=== PATIENT | male | born 1950 | race Caucasian/White ===

== ENCOUNTER 2018-12-22 10:54 | Observation (INO) | payer OTHER, MEDICARE, SELFPAY ==
[2018-12-22] VITALS (14 sets, daily range): BP systolic 166–191; BP diastolic 78–92; PULSE 67–93; RESP 16–23; TEMP 36.7–36.8; O2SAT 92–98; BMI 32.1; BMI 33.7; BMI 33.8
[2018-12-22 11:06] LABS: Bedside Glucose 260 mg/dL (70-110)
--- NOTE | 2018-12-22 11:23 | RAD_ITS ---
STUDY: X-RAY CHEST REASON FOR EXAM: Male, 68 years old. Intermittent right-sided weakness. TECHNIQUE: Single AP portable view of the chest. COMPARISON: None. FINDINGS: EKG electrodes are seen. Elevation of the right hemidiaphragm. Blunting of the left cardiac phrenic angle. There is moderate cardiac enlargement. Normal mediastinum and elliott. Normal visualized pulmonary arteries. Normal visualized aortic arch and descending thoracic aorta. Normal visualized thoracic spine. Status post left shoulder replacement. There is no demonstrated abnormality of the visualized soft tissue structures of the upper abdomen. RAD/Chest 1 View IMPRESSION: Cardiomegaly. Blunting of the left costophrenic angle. Electronically Signed: Baudilio Maldonado, at 12:30 EDT , Service support ,
--- NOTE | 2018-12-22 11:23 | EKG12_ITS ---
Test Reason : STROKE ALERT Blood Pressure : / mmHG Vent. Rate : 081 BPM Atrial Rate : 081 BPM P-R Int : 142 ms QRS Dur : 084 ms QT Int : 390 ms P-R-T Axes : -01 028 050 degrees QTc Int : 453 ms Normal sinus rhythm Normal ECG Confirmed by MIKE OLIVA, ANICETO ([id number]), material expeditor GIULIANO HERNANDEZ ([id number]) on 12/27/2018 12:56:14 PM Referred By: Jacquie Lujan Confirmed By:ANICETO MCKEON MD
--- NOTE | 2018-12-22 11:23 | CT_ITS ---
STUDY: CT BRAIN WITHOUT CONTRAST REASON FOR EXAM: Male, 68 years old. Weakness. Slurred speech. RADIATION DOSAGE (If Supplied By Facility): CTDIvol = ( 60.81 ) mGy, DLP = ( 1181.11 ) mGycm TECHNIQUE: Transaxial CT imaging of the brain was performed without administration of intravenous contrast material. Individualized dose optimization techniques were used for this CT. COMPARISON: No relevant priors. FINDINGS: Normal soft tissue structures. Normal calvarium. There is mild cerebral atrophy with widening of the extra-axial spaces and ventricular dilatation. There are areas of decreased attenuation within the white matter tracts of the supratentorial brain, consistent with microvascular disease changes. Normal basal ganglia and thalami. Normal brainstem. Normal cerebellum. There is no intracranial hemorrhage. There are no findings of an acute ischemic infarction. Atherosclerotic calcification of the cavernous portions of the internal carotid arteries bilaterally. Opacification of the sphenoid sinuses as well as the ethmoid sinuses. CT/Brain/Head without Contrast IMPRESSION: Chronic involutional changes of the brain. Opacification of the sphenoid sinus and ethmoid sinus. Electronically Signed: Baudilio Maldonado, at 12:28 EDT , Service support ,
--- NOTE | 2018-12-22 11:33 | NURSING ---
NO OLD EKG TO OBTAIN
[2018-12-22 11:43] LABS: Absolute Lymphocyte Count 2.35 X10^3/ul (0.83-4.51); Absolute Neutrophil Count 5.3 X10^3/uL (2.0-7.7); Basophil# 0.03 X10^3/uL; Basophil% 0.3 % (0-1); Eosinophil# 0.41 X10^3/uL; Eosinophils% 4.7 % (0-5); Hemoglobin 16.4 g/dl (13.0-16.5); Lymphocyte # 2.35 X10^3/ul (4.0); Lymphocyte % 27.1 % (19-41); Mean Corp Hgb Conc 32.8 g/gl (32-36); Mean Corpuscular Hgb 29.9 pg (27.0-32.0); Mean Corpuscular Volume 91.2 fL (80-94); Mean Platelet Vol. 12.2 fl (6.2-12.0); Monocyte# 0.58 X10^3/uL; Monocyte% 6.7 % (0-10); Neutrophil # 5.28 X10^3/uL (2.7-7.7); Neutrophil % 61.1 % (47-70); Platelet Count 210 K/mm3 (150-450); RBC Distribution Width CV 12.8 % (11.6-14.6); RBC Distribution Width SD 42.5 fl (35.1-43.9); Red Blood Count 5.48 M/mm3 (4.6-6.2); White Blood Count 8.7 K/mm3 (4.4-11.0)
[2018-12-22 11:44] LABS: POSITIVE COUNT NO; POSITIVE DIFFERENTIAL NO; POSITIVE MORPHOLOGY NO
[2018-12-22 11:46] LABS: Anion Gap 7 (5-15); BUN 14 mg/dL (7-18); BUN/Creat Ratio 13.3 RATIO (10-20); Calcium,Total 9.7 mg/dL (8.5-10.1); Chloride 98 mmol/L (98-107); Creatinine, Serum 1.05 mg/dL (0.70-1.30); EST Glomerular Filtration Rate 75 mL/min (>60); Est Glom Filt Rate - Afr Amer 90 mL/min (>60); Estimated Creatinine Clearance 69.52 ml/min; Glucose 279 mg/dL (74-106); Potassium 3.6 mmol/L (3.5-5.1); Sodium Level 140 mmol/L (136-145)
[2018-12-22 11:47] LABS: Prothrombin Time (Protime)PT. 12.9 SECONDS (11.7-14.9)
[2018-12-22 11:48] LABS: Partial Thromboplast Time 28.7 Seconds (24.1-36.2)
--- NOTE | 2018-12-22 11:52 | ED.VISSUMM ---
- ER Visit Summary Date of Service: 12/22/18 Chief Complaint: Slurred speech, right-sided weakness History of Present Illness: The patient is a 68 M who has slurred speech and right-sided weakness. It started early this morning at 6:30 AM. He felt like he had numbness on the right-hand side and then it became weak. He also thought his speech was slurred. 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 By the time he got here his symptoms had resolved. Earlier this week he has had symptoms of right-sided numbness which have resolved on their own. He has no history of stroke or TIA. He is a diabetic. Denies any falls or trauma. Physical Examination: Vital signs reviewed. HEENT exam unremarkable. Heart is regular rate and rhythm without murmurs. Lungs are clear to auscultation. Abdomen is soft and nontender. Extremities reveal no edema. Skin exam normal. Neurologic exam normal. Current NIH is 0 with no symptoms Test Results: Laboratory studies unremarkable except for bicarb of 35 and a glucose of 229. CAT scan of the head reveals no acute findings except for some slight opacification of sinuses. Chest x-ray reveals cardiomegaly. Emergency Department Course and Treatment: The patient's NIH remains 0 throughout his ER stay. My concern is that he has a TIA. He does have diabetes and his blood pressure is elevated. His ABCD 2 score is high therefore he should be admitted to the hospital for further evaluation. Treatment Plan: [] Disposition: Admit Impression: TIA This note was generated with ClearMy[employer] dictation software. It may contain incorrect words, spelling, and punctuation that were not noted in review of the chart prior to signing ED Disposition - Plan for ED Patient: Referrals: Devin Thompson MD [Primary Care Provider] -
--- NOTE | 2018-12-22 13:26 | HP.PCM_ITS ---
Problem List (1) TIA (transient ischemic attack) Status: Acute (2) Hypertension Status: Chronic Qualifiers: Hypertension type: essential hypertension Qualified Code(s): I10 - Essential (primary) hypertension (3) Diabetes mellitus Status: Chronic Qualifiers: Diabetes mellitus type: type 2 Diabetes mellitus machine long goods helper insulin use: [facility] machine long goods helper use Diabetes mellitus complication status: with neurologic complications History of Present Illness Date of Admission: 12/22/18 Chief Complaint: Slurred speech -1 day. Left upper extremity numbness - intermittent since 5 days The patient is a 68 year old M with past medical history of type II DM, complicated by peripheral neuropathy, hypertension, PAD who comes in with complaints of right upper extremity numbness described as feeling of right upper extremity being which happened 5 days ago and lasted about 20 minutes. Patient subsequently had similar presentation 2 days ago which also lasted for about 20 minutes. He denied any other symptoms. He went to work th morning and was told by his coworkers that he had a slurred speech and this lasted for about an hour and half. He denied any weakness or tingling or numbness of his extremities. His symptoms seem to be resolved at the time of presenting in the ED. Patient admits to recent upper respiratory illness about a week ago with lingering cough. No fevers or chills. Vitals in the ED show temperature of 90 8.0F, heart rate 77, respiratory rate 16, blood pressure 182/87, SPO2 is 97% on room air. Admitting blood work occluding CBC D, CMP INR and PTT were unremarkable except for elevated blood glucose of 260. CT scan of the head showed chronic involuntary changes of the brain, opacification of the sphenoid sinus and ethmoid sinus. Chest x-ray shows cardiomegaly, blunting of the left costophrenic angle. Past Medical History Past Medical History (Chronic Problems): Chronic Problems Hypertension (Chronic) Diabetes mellitus (Chronic) Allergies codeine Allergy (Verified 12/22/18 10:55) Hives morphine Allergy (Verified 12/22/18 10:55) Hives Home Medications: Ambulatory Orders Medication Instructions Recorded Albuterol IH (ProAir) [Proair Hfa 1 puff INHALATION Q4H PRN PRN 12/22/18 (SP)Vent Pts] Cilostazol [Pletal] 50 mg PO BIDAC 12/22/18 Gabapentin [Neurontin] 300 mg PO TID 12/22/18 Glimepiride [Amaryl] 4 mg PO DAILY 12/22/18 Lisinopril 1 tab PO DAILY 12/22/18 Lisinopril [Zestril] 20 mg PO DAILY 12/22/18 Metformin HCl 500 mg PO BID 12/22/18 Metoprolol Succinate [Toprol Xl] 50 mg PO DAILY 12/22/18 Omeprazole 1 tab PO DAILY 12/22/18 Surgical History: rotator cuff repair - left shoulder, total hip arthroplasty - right, total knee arthroplasty - left Psychiatric History: No pertinent psych hx Lives: Spouse/ Significant Other Smoking Status: Never smoker Tobacco Use: Non-smoker Alcohol: None Drugs: None - *Family History Maternal History Items: No pertinent history Paternal History Items: Cancer - lung Review of Systems Constitutional: Denies: Anorexia, Chills, Fever, Malaise, Weakness, Weight Change Eyes: Denies: Blurred vision, Cataracts, Conjunctivae Inflammation, Pain, Redness, Vision Change HEENT: Denies: Difficulty Hearing, Difficulty Swallowing, Head Aches, Hearing Changes, Sinus Congestion, Sinus Drainage Cardiovascular: Denies: Chest Pain, Claudication, Orthopnea, Palpitations, Paroxysmal Noc. Dyspnea Respiratory: Reports: Cough. Denies: Shortness of Breath, Shortness of breath at rest, Sputum production Gastrointestinal: Denies: Abdominal Pain, Constipation, Nausea, Vomiting Genitourinary: Denies: Dysuria, Frequency, Incontinence Musculoskeletal: Denies: Joint Pain, Joint stiffness, Joint swelling, Joint Tenderness Skin: Denies: Rash, Wounds Neurological: Denies: Numbness, Tingling, Focal weakness Psychiatric: Denies: Anxiety, Depression, Homicidal Ideations, Suicidal Ideations Hematologic/ Lymphatic: Denies: Easy Bruising, Easy Bleeding VTE Information - Inpt Only VTE Present on Admission: No VTE Pharm Prophylaxis ordered?: Yes Patient Problems: Active and Suspected Problems TIA (transient ischemic attack) (Acute) - Physical Exam General: Alert, Oriented x3, Cooperative, No apparent distress HEENT: Atraumatic, PERRLA, EOMI, Normocephalic Oral: Moist Mucosa Neck: Supple Lungs: Clear to auscultation, Normal air movement Cardiovascular: Regular rate, Regular Rhythm, Normal S1, Normal S2, No murmurs Abdomen: Bowel Sounds Present, Soft, Non Tender, Non-Distended, No Hepato- splenomegaly Extremities: No edema Skin: No rashes, No breakdown Musculoskeletal: No Tenderness to Palpation of Joints or Extremities Neurological: Cranial nerves II-XII grossly intact, Neuro grossly intact Psych/Mental Status: Normal Affect, Appropriate Vital Signs Temp Pulse Resp BP Pulse Ox 98.2 F 73 20 H 184/83 H 98 12/22/18 13:00 12/22/18 13:00 12/22/18 13:00 12/22/18 13:00 12/22/18 13:00 Oxygen Delivery Method Room Air Weight: 101.39 kg Body Mass Index (BMI) 32.1 Finger Stick Blood Glucose 260 Laboratory Tests Past 24 Hrs 12/22/18 12/22/18 12/22/18 10:57 10:57 10:57 WBC 8.7 RBC 5.48 Hgb 16.4 Hct 50.0 MCV 91.2 MCH 29.9 MCHC 32.8 RDW 12.8 RDW Differential 42.5 Plt Count 210 MPV 12.2 H Immature Gran % (Auto) 0.100 Neut % (Auto) 61.1 Lymph % (Auto) 27.1 [place] % (Auto) 6.7 Eos % (Auto) 4.7 Baso % (Auto) 0.3 Absolute Neuts (auto) 5.3 Absolute Lymphs (auto) 2.35 Total Counted Not Reportable PT 12.9 INR 1.0 APTT 28.7 Sodium 140 Potassium 3.6 Chloride 98 Carbon Dioxide 35.0 H Anion Gap 7 BUN 14 Creatinine 1.05 Estim Creat Clear Calc 69.52 Est GFR (MDRD) Af Amer 90 Est GFR (MDRD) Non-Af 75 BUN/Creatinine Ratio 13.3 Glucose 279 H Calcium 9.7 Troponin I < 0.015 POC Glucose 12/22/18 11:00 POC Glucose 260 H Assessment/Plan All Active Problems TIA (transient ischemic attack) (Acute) 68 year old M with past medical history of type II DM, complicated by peripheral neuropathy, hypertension, PAD who comes in with complaints of right upper extremity numbness described as feeling of right upper extremity being which happened 5 days ago and lasted about 20 minutes. This recurred 2 days prior to admission and then had slurred speech which lasted about 90mins prior to admission. 1. TIA, in a patient with multiple risk factors, ABCD2 score is 6 Plan: Admit to PCU, monitor on telemetry, aspirin 81 mg p.o. daily, 2D echo, MRI of the head, MRA of the head and neck, HgbA1c, lipid profile, neurology consult, PT, OT, speech therapy to evaluate and treat 2. Hypertension, uncontrolled, will allow for permissive hypertension for the next 24 hours, will treat only when systolic blood pressures more than 220, as work-up is ongoing, on lisinopril and metoprolol, continue same medications 3. Type 2 DM, on glimepiride and metformin, both are on hold, will continue on Accu-Chek with insulin sliding scale, check Hgb A1c 4. PAD, on cilostazol( patient admits to not taking his medication since June when his vascular surgeon moved practice to [place]) 5. DVT PPx- Heparin SC Code Visit OBSV E&M: [id number] Initial observation care L3
--- NOTE | 2018-12-22 13:49 | CASEMGMT ---
RN CM Assessment Introduced role of RN CM to patient and patient at bedside.? Patient is alert, oriented and able?to participate in RN CM Assessment, however patient getting ready to go to room by ER Rug Sizer- provided information. ?Care providers, pharmacy, and demographics verified. Presentation: Intermittent Rt side Weakness over the past couple days. This morning slurred speech- resolved. Admit Dx: TIA Re-Admit: No Barriers/Issues: None PCP: Devin Thompson Specialists: Ortho in past Preferred Pharmacy: [facility], [place] Insurance: [employer] Benefit: Yes? LNOK: Jazmin Leon LW/HPOA: Yes both, aware not on file at [facility]. HPOA- Jazmin Leon Living Arrangements:?Lives with with in a Ranch Home, 12 steps to enter. ADL?s: Independent with ambulation and uses a cane Prn longer distances. Independent with ADL's Transportation: Patient drives, to transport on DC DME: CPAP, Cane HHC: Past SNF: None Goal: Home, does not think will have any needs at DC. DC PLAN: Home with no anticipated needs identified at this time. Miguelito Pollard RNCM
--- NOTE | 2018-12-22 14:37 | MRI_ITS ---
STUDY: MRA NECK WITH AND WITHOUT CONTRAST REASON FOR EXAM: Male, 68 years old. Stroke TECHNIQUE: 3-D sgqc-to-doomwa (TOF) imaging was performed in an 1.5 T MRI scanner. 20 IV Dotarem was administered for the contrast enhanced images. COMPARISON: None. FINDINGS: RIGHT CAROTID ARTERIES: Mild plaquing of the right common carotid artery (CCA). Mild plaquing of the right common carotid bulb. Minor plaquing of the origin of the right internal carotid (ICA) artery without a hemodynamically significant stenosis. Normal visualized cervical portion of the right internal carotid artery. Normal origin of the right external carotid artery (ECA). LEFT CAROTID ARTERIES: Mild plaquing of the left common carotid artery (CCA). Mild plaquing of the left common carotid bulb. Mild to moderate plaquing of the origin of the left internal carotid (ICA) artery without a hemodynamically significant stenosis. There is a high-grade stenosis nearly occlusive lesion within the cervical portion of the left internal carotid artery. Normal origin of the left external carotid artery (ECA). VERTEBRAL ARTERIES: Normal antegrade flow within the bilateral vertebral artery without a hemodynamically significant stenosis. There is narrowing of the distal right vertebral MRI/MRA Neck WITH and W/O Contrast IMPRESSION: Atherosclerotic disease more severe on the left with high-grade stenosis near occlusion of the cervical portion of the left internal carotid CTA or catheter angiography would be helpful for further evaluation if clinically warranted Electronically Signed: Gal Daniel MD at 19:46 EDT , Service support ,
--- NOTE | 2018-12-22 14:37 | MRI_ITS ---
We are attempting to reach an attending provider to discuss findings. An addendum with communication details will be sent when the communication is complete. STUDY: MRI BRAIN WITHOUT CONTRAST REASON FOR EXAM: Male, 68 years old. Slurred speech TECHNIQUE: Standardized multiplanar fat and water weighted pulse sequences were obtained. COMPARISON: CT of the brain on December 22, 2018 FINDINGS: There is mild atrophy and moderate periventricular white matter ischemic changes. There are tiny punctate foci of restricted diffusion in the left frontal and parietal lobes consistent with acute ischemic changes in the distribution of the left middle cerebral artery.. Chronic ischemic changes within the [place]. Normal bilateral basal ganglia. Normal thalami. There is no extra-axial fluid accumulation. Normal flow voids within the major intracranial circulation suggesting patency by spin echo criteria. Normal sella turcica, pituitary gland, infundibular stalk, optic chiasm and hypothalamus. Normal tectal plate and pineal gland. Normal midbrain and medulla. Normal cerebellum. Normal basal cisterns. Normal bilateral temporal bones. Normal bilateral internal auditory canals. No demonstrated orbital abnormality, within the constraints of a routine brain study. There is minor mucosal thickening of the maxillary sinuses. There is moderate to severe bilateral ethmoid and sphenoid sinus disease. Normal calvarium and skull base. Normal visualized soft tissue structures. Normal visualized upper cervical spine. MRI/Brain without Contrast IMPRESSION: Tiny foci of acute deep white matter ischemic changes within the left frontal and parietal lobes Moderate periventricular white matter ischemic changes. Chronic pontine ischemic changes.. Electronically Signed: Gal Daniel MD at 19:34 EDT , Service support ,
--- NOTE | 2018-12-22 14:37 | ECHOD_ITS ---
Reason For Study: TIA/CVA Procedure This was a 2D Doppler, Color Flow transthoracic echocardiogram. The study was technically difficult. Due to body habitus. Contrast injection was performed. Exam performed portable in patient room. Left Ventricle Normal size and thickness. The estimated ejection fraction is 75 %. Stage 1 diastolic dysfunction. No regional wall motion abnormalities noted. Right Ventricle Normal size and thickness. Normal systolic function. Atria Normal left atrium. Normal right atrium. Normal atrial septum. Bubble contrast study negative for right to left interatrial shunt. Mitral Valve The mitral valve is structurally normal. No prolapse or stenosis seen. Tricuspid Valve Normal tricuspid valve. Trivial tricuspid valve insufficiency. Right ventricular systolic pressure estimated to be 21 mmHg. Aortic Valve Normal aortic valve. Trisinus/trileaflet aortic valve. Pulmonic Valve Normal pulmonic valve. Great Vessels Normal aortic root. Normal arch. Normal inferior vena cava. Inferior vena cava collapse with sniff. Pericardium/Pleural No pericardial effusion. Medication Performed a rapid injection of agitated mix of 9 cc saline and 1cc air to assess for atrial septal defect. Diluted definity 3.5ml given slow IV push to enhance endocardial definition. MMode/2D Measurements & Calculations LVIDd: 4.8 cm IVSd: 1.2 cm Ao root diam: 3.7 cm LVIDs: 3.0 cm LVPWd: 1.2 cm RVDd: 3.6 cm FS: 38.2 % LAV(MOD-bp): 55.6 ml LA dimension(2D): 3.7 cm LAV(MOD-bp) Indexed: 24.9 ml/m2 LAV(MOD-sp2): 55.4 ml LAV(MOD-sp4): 55.2 ml Time Measurements MV dec time: 0.27 sec Doppler Measurements & Calculations MV E max itz: 72.5 cm/sec Lat Peak E' Itz: 8.8 cm/sec Med Peak E' Itz: 5.9 cm/sec MV A max itz: 95.0 cm/sec E/E' lat: 8.2 E/E' med: 12.2 MV E/A: 0.76 Ao V2 max: 126.2 cm/sec LV V1 max: 98.5 cm/sec PA V2 max: 80.1 cm/sec Ao max P.4 mmHg LV V1 max P.9 mmHg Interpretation Summary The estimated ejection fraction is 75 %. Stage 1 diastolic dysfunction. Bubble contrast study negative for right to left interatrial shunt. Trivial tricuspid valve insufficiency. Right ventricular systolic pressure estimated to be 21 mmHg. The study was technically difficult. There is no comparison study available. Contrast injection was performed. Ordering Physician: Jacquie Lujan Referring Physician: Devin Thompson Performed By: Marina Walker RDCS, RVT
--- NOTE | 2018-12-22 14:37 | MRI_ITS ---
STUDY: MRA OF THE HEAD WITHOUT CONTRAST REASON FOR EXAM: Male, 68 years old. CVA TECHNIQUE: 3-D ouoc-xo-ojcued (TOF) imaging was performed with MIPs. The study was performed unenhanced. COMPARISON: None. FINDINGS: Normal bilateral petrous carotid arteries. Normal right cavernous carotid artery with a normal supraclinoid bifurcation. Normal left cavernous carotid artery with a normal supraclinoid bifurcation. Normal right A1 segments of the anterior cerebral artery. Prominent narrowing of the left A1 segments of the anterior cerebral artery. Anterior communicating artery not visualized consistent with normal variant Normal bilateral A2 segments of the anterior cerebral arteries. Multifocal plaquing of the right M1 and M2 segments of the middle cerebral arteries, with a normal M1 bifurcation. Multi focal plaquing of the left M1 and M2 segments of the middle cerebral arteries, with a normal M1 bifurcation. Posterior communicating arteries are not visualized consistent with normal variant Left vertebral is dominant and normal caliber. There is relatively severe narrowing of the distal right vertebral and without focal narrowing of the basilar artery. The visualized bilateral superior cerebellar (SCA) arteries are normal. Normal bilateral P1, P2 and visualized P3 segments of the posterior cerebral arteries. There is no demonstrated aneurysm of the [place] of [place]. There is no major vessel occlusion or hemodynamically significant stenosis. There is no demonstrated abnormality of the visualized brain. MRI/MRA Head ONLY without Contrast IMPRESSION: Moderate atherosclerotic disease is noted with multifocal segmental stenoses which appear most severe within the A1 segment of left anterior cerebral, right vertebral and basilar arteries. These findings may be artifactually exaggerated. CTA would be helpful for further assessment if clinically indicated Electronically Signed: Gal Daniel MD at 19:42 EDT , Service support ,
[2018-12-22 15:03] LABS: Hemoglobin A1c 8.8 % (4.2-6.3)
[2018-12-22] MEDS: Heparin Injection (Vial) 5,000 UNIT/ML VIAL 5000 UNIT SC ×2 (16:59→21:30)
[2018-12-22] MEDS: Gabapentin 300 MG Capsule PO (16:59)
[2018-12-22 17:11] LABS: Bedside Glucose 187 mg/dL (70-110)
[2018-12-22 17:12] LABS: Alcohol, Blood (Medical)-Serum < 3.0 mg/dL
[2018-12-22] MEDS: LORazepam 2 MG/ML Syringe 1 MG IV (17:32)
--- NOTE | 2018-12-22 20:39 | DCINST_ITS ---
- Discharge Diagnoses Current Active Problems: Current Active and Chronic Problems TIA (transient ischemic attack) (Acute) Hypertension (Chronic) Diabetes mellitus (Chronic) Reason(s) for Visit for Discharge Instructions: slurred speech Allergies/Adverse Reactions: Allergies codeine Allergy (Verified 12/22/18 10:55) Hives morphine Allergy (Verified 12/22/18 10:55) Hives Medications to take at Discharge Albuterol IH (ProAir) [Proair Hfa (SP)Vent Pts] 1 puff INHALATION Q4H PRN PRN 12/22/18 Aspirin [Aspirin, Baby] 81 mg PO DAILY@0800 12/22/18 Gabapentin [Neurontin] 300 mg PO BID 12/22/18 Glimepiride [Amaryl] 4 mg PO BID 12/22/18 Lisinopril [Zestril] 20 mg PO DAILY 12/22/18 Metoprolol Succinate [Toprol Xl] 50 mg PO DAILY 12/22/18 Omeprazole 40 mg PO DAILY 12/22/18 Primary Care Physician: Devin Thompson MD [Primary Care Provider] - Test Results: Test results from this visit will be discussed in further detail at your follow- up appointment, if applicable. Proposed Discharge Date: 12/22/18
--- NOTE | 2018-12-22 20:39 | DS.PCM_ITS ---
Discharge Date and Diagnosis Date of Admission: 12/22/18 Date of Discharge: 12/22/18 - Primary Discharge Diagnosis Active and Suspected Problems Acute frontal and parietal CVA Multifocal segmental stenosis, severe in the left anterior cerebral, right vertebral and basilar arteries Severe left high-grade stenosis/near occlusion of the left internal carotid - Secondary Discharge Diagnosis Chronic Problems Hypertension (Chronic) Diabetes mellitus (Chronic) Hospital Course and Treatment Imaging Results: 12/22/18 14:37 Echo Complete W/ Contrast [ECHO] Routine Brain without Contrast [MRI] Routine MRA Head ONLY without Contrast [MRI] Routine MRA Neck WITH and W/O Contrast [MRI] Routine Operations: None Procedures: 2-D Echocardiogram Summary of Care Provided: The patient is a 68 year old M with past medical history of type II DM, complicated by peripheral neuropathy, hypertension, PAD who comes in with complaints of right upper extremity numbness described as feeling of right upper extremity being which happened 5 days ago and lasted about 20 minutes. Patient subsequently had similar presentation 2 days ago which also lasted for about 20 minutes. He denied any other symptoms. He went to work on the morning of the admission and was told by his coworkers that he had a slurred speech and this lasted for about an hour and half. He denied any weakness or tingling or numbness of his extremities. His symptoms seem to be resolved at the time of presenting in the ED. Patient admits to recent upper respiratory illness about a week ago with lingering cough. No fevers or chills. Vitals in the ED show temperature of 98.0F, heart rate 77, respiratory rate 16, blood pressure 182/87, SPO2 is 97% on room air. Admitting blood work occluding CBC D, CMP INR and PTT were unremarkable except for elevated blood glucose of 260. CT scan of the head showed chronic involuntary changes of the brain, opacification of the sphenoid sinus and ethmoid sinus. Chest x-ray shows cardiomegaly, blunting of the left costophrenic angle. MRI brain showed tiny foci of acute deep white matter ischemic changes within the left frontal and parietal lobes. MRA of head showed atherosclerotic disease with multifocal segmental stenosis seen most CVA within left anterior cerebral, right vertebral and basilar arteries. MRA of the neck showed atherosclerotic disease most severe on the left with high-grade stenosis/near occlusion of the cervical portion of the left internal carotid artery. Night hospitalist discussed with neurology and recommended transfer to tertiary center. Patient was accepted to [facility]. Subjective: See H&P Objective: See H&P - Physical Exam Vital Signs Temp Pulse Resp BP Pulse Ox 98.0 F 93 16 191/86 H 94 12/22/18 17:37 12/22/18 19:46 12/22/18 17:37 12/22/18 17:37 12/22/18 17:37 Oxygen Flow Rate (L/min) 2 Oxygen Delivery Method Room Air Weight: 106.7 kg Body Mass Index (BMI) 33.7 Finger Stick Blood Glucose 260 Intake and Output for Last 24 Hours 12/20/18 12/21/18 12/22/18 23:59 23:59 23:59 Intake Total 240 / 240 Balance 240 / 240 Laboratory Tests Past 24 Hrs 12/22/18 12/22/18 12/22/18 10:57 10:57 10:57 WBC 8.7 RBC 5.48 Hgb 16.4 Hct 50.0 MCV 91.2 MCH 29.9 MCHC 32.8 RDW 12.8 RDW Differential 42.5 Plt Count 210 MPV 12.2 H Immature Gran % (Auto) 0.100 Neut % (Auto) 61.1 Lymph % (Auto) 27.1 Moffat % (Auto) 6.7 Eos % (Auto) 4.7 Baso % (Auto) 0.3 Absolute Neuts (auto) 5.3 Absolute Lymphs (auto) 2.35 Total Counted Not Reportable PT 12.9 INR 1.0 APTT 28.7 Sodium 140 Potassium 3.6 Chloride 98 Carbon Dioxide 35.0 H Anion Gap 7 BUN 14 Creatinine 1.05 Estim Creat Clear Calc 69.52 Est GFR (MDRD) Af Amer 90 Est GFR (MDRD) Non-Af 75 BUN/Creatinine Ratio 13.3 Glucose 279 H Hemoglobin A1c Calcium 9.7 Troponin I < 0.015 Ethyl Alcohol 12/22/18 12/22/18 10:57 16:17 WBC RBC Hgb Hct MCV MCH MCHC RDW RDW Differential Plt Count MPV Immature Gran % (Auto) Neut % (Auto) Lymph % (Auto) Moffat % (Auto) Eos % (Auto) Baso % (Auto) Absolute Neuts (auto) Absolute Lymphs (auto) Total Counted PT INR APTT Sodium Potassium Chloride Carbon Dioxide Anion Gap BUN Creatinine Estim Creat Clear Calc Est GFR (MDRD) Af Amer Est GFR (MDRD) Non-Af BUN/Creatinine Ratio Glucose Hemoglobin A1c 8.8 H Calcium Troponin I Ethyl Alcohol < 3.0 POC Glucose 12/22/18 12/22/18 17:08 11:00 POC Glucose 187 H 260 H Discharge Diet: Low fat/ Low Cholesterol, 2000 mg Sodium Diet Home Medications: Medications to take at Discharge Albuterol IH (ProAir) [Proair Hfa (SP)Vent Pts] 1 puff INHALATION Q4H PRN PRN 12/22/18 Aspirin [Aspirin, Baby] 81 mg PO DAILY@0800 12/22/18 Gabapentin [Neurontin] 300 mg PO BID 12/22/18 Glimepiride [Amaryl] 4 mg PO BID 12/22/18 Lisinopril [Zestril] 20 mg PO DAILY 12/22/18 Metoprolol Succinate [Toprol Xl] 50 mg PO DAILY 12/22/18 Omeprazole 40 mg PO DAILY 12/22/18 Primary Care Physician: Devin Thompson MD [Primary Care Provider] - Disposition: Acute care Hospital Minutes spent on discharge:: 50 Patient Condition:: Stable Medical Necessity - Tobacco Use Smoking Status: Never smoker Tobacco Use: Non-smoker Meaningful Use Info Meaningful Use Diagnoses (Choose all that apply): Ischemic CVA - CVA Therapy Assessed for PT,OT and/or ST?: Yes - Ischemic Stroke Antithrombotic order at d/c?: No Reason antithrombotic not ordered: Treatment not Indicated Dx of Atrial fib/flutter?: No Anticoagulant at discharge?: No Reason anticoagulant not ordered: Treatment not Indicated Statins at discharge?: Yes Primary Dx Acute Ischemic CVA?: Yes IV tPA ordered during stay?: No Reason IV t-PA not ordered: Treatment not Indicated Code Visit Inpatient E&M: 10590 Disch Hosp
--- NOTE | 2018-12-22 21:26 | NURSING ---
Discussed with features reporter Jorge Rivas RN, she checked [employer] website for tranfer. Per [employer] website in network facilities include [facility], [facility], [facility], [facility].
[2018-12-22] MEDS: Insulin Lispro 100 UNIT/ML INSULN.PEN SQ (21:30)
[2018-12-22] MEDS: 0.9% NaCl Peripheral Flush Adult/Peds IV (21:30)
--- NOTE | 2018-12-22 22:30 | NURSING ---
Report called to Cassi TORRES at [facility].
[2018-12-22 22:45] LABS: Bedside Glucose 252 mg/dL (70-110)
--- NOTE | 2018-12-22 23:13 | NURSING ---
Transport arrived to pickup patient and take to [facility]. Verbal report given; patient belongings and home medications sent with patient.
== END 2018-12-22 23:15 | disposition short-term general hospital (02) ==
LOC: ED 13:27 → PCU 17:42
PROVIDERS: Admitting Provider Internal Medicine; Emergency Provider Emergency Medicine; Referring Provider Internal Medicine; Visit Provider Internal Medicine
DX: I63.522 Cerebral infarction due to unspecified occlusion or stenosis of left anterior cerebral artery (principal); R47.81 Slurred speech; R20.0 Anesthesia of skin; I10 Essential (primary) hypertension; Z79.4 Long term (current) use of insulin; Z79.899 Other long term (current) drug therapy; Z79.82 Long term (current) use of aspirin; E11.42 Type 2 diabetes mellitus with diabetic polyneuropathy; E11.51 Type 2 diabetes mellitus with diabetic peripheral angiopathy without gangrene
CPT/HCPCS: 36415; 70450; 70544; 70549; 70551; 71045; 80048; 80320; 82962; 83036; 84484; 85025; 85610; 85730; 92522; 92610; 93005; 93306; 96372; 96374; 99285; A9575; Q9957; A4216; C8929; G0480

== ENCOUNTER 2018-12-29 19:40 | Inpatient (IN) | payer OTHER, MEDICARE, SELFPAY ==
[2018-12-22 20:19] VITALS: BMI 33.7
[2018-12-29 21:00] VITALS: BP 172/98; PULSE 84; RESP 18; TEMP 36.8; O2SAT 96; BMI 33.5
--- NOTE | 2018-12-29 21:03 | CON.PCM_ITS ---
Problem List (1) CVA (cerebral vascular accident) Status: Acute Qualifiers: CVA mechanism: unspecified Qualified Code(s): I63.9 - Cerebral infarction, unspecified (2) HLD (hyperlipidemia) Status: Chronic Qualifiers: Hyperlipidemia type: unspecified Qualified Code(s): E78.5 - Hyperlipidemia, unspecified (3) GERD (gastroesophageal reflux disease) Status: Chronic Qualifiers: Esophagitis presence: esophagitis presence not specified Qualified Code(s): K21.9 - Gastro-esophageal reflux disease without esophagitis (4) Neuropathy Status: Chronic (5) Obesity (BMI 30.0-34.9) Status: Chronic (6) Hypertension Status: Chronic Qualifiers: Hypertension type: essential hypertension Qualified Code(s): I10 - Essential (primary) hypertension (7) Diabetes mellitus Status: Chronic Qualifiers: Diabetes mellitus type: type 2 Diabetes mellitus longterm insulin use: without cake wrapper use Diabetes mellitus complication status: with neurologic complications Reason for Consult Date of Consultation: 12/29/18 Reason for Consultation: Medical consultation History of Present Illness: The patient is a 68 y/o M w/ PMHx: PAD, Obesity, EtOH Abuse history, HTN, HLD, GERD, Neuropathy, Diabetes mellitus type II who presents to the [facility] on 12/29/18 for ongoing PT, OT, CVA evaluations and treatment, transferred from following acute CVA w/ R sided hemiplegia as well as oropharyngeal dysphagia. Patient was recently admitted to [facility] on 12/22/18 for TIA/CVA evaluation and during that admission had evaluation notable for acute Frontal and Parietal CVA w/ severe in the left anterior cerebral, right vertebral and basilar arteries and severe left high-grade stenosis/near occlusion of the left internal carotid. During his hospitalization patient underwent left CEA however his recovery was complicated by hypercapnic respiratory acidosis requiring BiPAP for several days with pulmonary consultation who felt that his underlying obesity with hypoventilation syndrome as well as JULIUS responsible for his current presentation as well as possible obstructive lung disease. Patient with ongoing right-sided hemiplegia as well as oropharyngeal dysphagia with transition to Rehab for ongoing PT, OT, Speech and Rehab physician evaluations and treatment. Past Medical History Past Medical History (Chronic Problems): Chronic Problems Hypertension (Chronic) Diabetes mellitus (Chronic) HLD (hyperlipidemia) (Chronic) GERD (gastroesophageal reflux disease) (Chronic) Neuropathy (Chronic) Obesity (BMI 30.0-34.9) (Chronic) Allergies codeine Allergy (Verified 12/22/18 10:55) Hives morphine Allergy (Verified 12/22/18 10:55) Hives Home Medications: Ambulatory Orders Medication Instructions Recorded Aspirin [Aspirin, Baby] 81 mg PO DAILY@0800 12/22/18 Gabapentin [Neurontin] 300 mg PO TID 12/22/18 Glimepiride [Amaryl] 4 mg PO DAILY 12/22/18 Lisinopril [Zestril] 40 mg PO DAILY 12/22/18 Omeprazole 40 mg PO DAILY 12/22/18 Albuterol Inhaler [Ventolin Hfa 1 puff INHALATION Q6H PRN PRN 12/29/18 (SP)] Atorvastatin Calcium 80 mg PO QHS 12/29/18 Hydrochlorothiazide [Hctz] 25 mg PO DAILY 12/29/18 Metoprolol Tartrate 25 mg PO Q12H 12/29/18 Surgical History: rotator cuff repair - left shoulder, total hip arthroplasty - right, total knee arthroplasty - left Psychiatric History: No pertinent psych hx Lives: Spouse/ Significant Other Smoking Status: Never smoker Tobacco Use: Non-smoker Alcohol: Occasional Drugs: None - *Family History Maternal History Items: - - No marked maternal family history of heart disease, diabetes or cancer. Paternal History Items: Cancer - lung Review of Systems Constitutional: Reports: Fatigue. Denies: Chills, Fever, Weight Change HEENT: Reports: Difficulty Swallowing, Head Aches. Denies: Sinus Congestion, Sinus Drainage Cardiovascular: Denies: Chest Pain, Palpitations Respiratory: Denies: Cough, Shortness of breath at rest, Sputum production Gastrointestinal: Denies: Abdominal Pain, Nausea, Vomiting Genitourinary: Denies: Dysuria Musculoskeletal: Reports: Back Pain. Denies: Joint Pain, Joint Tenderness Skin: Denies: Rash, Wounds Neurological: Reports: Balance problems, Slurred speech, Focal weakness. Denies: Numbness, Tingling Psychiatric: Denies: Anxiety, Depression, Homicidal Ideations, Suicidal Ideations Hematologic/ Lymphatic: Reports: Easy Bruising, Easy Bleeding Patient Problems: Active and Suspected Problems CVA (cerebral vascular accident) (Acute) Subjective: Seated upright in the rehab bed, notes ongoing mild headache rated 4-5 out of 10 currently. Objective: Physical Examination: General: awake, alert, oriented x 3 and cooperative, seated upright in bed in no apparent distress, notes headache present. Skin: normal color, turgor, no icterus, cyanosis. HEENT: AT/NC, EOMI, PERRLA, MMM, no carotid bruits or JVD noted. Lungs: CTA bilaterally, moderate effort, mild decrease BL bases, no rales, ronchi or wheezing. Heart: Regular rate and rhythm; no gallop, rub audible. Abdomen: soft, obese, NTTP, ND, normal BS, no HSM. Extremities: no cyanosis, clubbing, or edema. Neurological: patient awake, alert, oriented x 3; cognitive function intact; pu pils equally reactive to light and accomodation; cranial nerves II-XII grossly normal, moving all 4 extremities however limitations to right-sided movement with right-sided hemiplegia, strength 4-5, mild dysarthria. Psychiatric: affect appears normal, no acute evidence of depressive or anxiety feelings. - Physical Exam Vital Signs Temp Pulse Resp BP Pulse Ox 98.3 F 84 18 172/98 H 96 12/29/18 21:00 12/29/18 21:00 12/29/18 21:00 12/29/18 21:00 12/29/18 21:00 Oxygen Delivery Method Room Air Weight: 233 lb 11.04 oz Body Mass Index (BMI) 33.5 Finger Stick Blood Glucose 260 Intake and Output for Last 24 Hours 12/27/18 12/28/18 12/29/18 23:59 23:59 23:59 Output Total 275 / 275 Balance -275 / -275 Assessment/Plan All Active Problems TIA (transient ischemic attack) (Acute) CVA (cerebral vascular accident) (Acute) The patient is a 68 y/o M w/ PMHx: Obesity, EtOH Abuse history, HTN, HLD, GERD, Neuropathy, Diabetes mellitus type II who presents to the [facility] on 12/29/18 for ongoing PT, OT, CVA evaluations and treatment, transferred from following acute CVA w/ R sided hemiplegia as well as oropharyngeal dysphagia. (1) Recent Acute CVA Frontal and Parietal CVA: Recent inpatient evaluation at [facility], transferred to OSH following MRI evaluations notable for acute frontal and parietal CVA w/ severe in the left anterior cerebral, right vertebral and basilar arteries and severe left high-grade stenosis/near occlusion of the left internal carotid. During his hospitalization patient underwent left CEA. Patient with ongoing right-sided hemiplegia as well as oropharyngeal dysphagia, continue PT, OT as well as speech therapy evaluations, maintain on aspirin, high-dose statin, BP regimen as well as diabetic regimen, continue nectar thick, mechanical soft diet pending further speech interventions. Patient with complaint of generalized headache, aching, had similar yesterday, not consistent with migraine noted per patient with remote history, improved prior with tylenol. BP SBP 160s, pending administration metoprolol, may need to add to regimen to achieve goal <140/90 as may be contributing to headache presentation. Discussed with Neurologist/Rehab physician. (2) Recent Acute hypercapnic respiratory acidosis secondary to JULIUS, Hypoventilation Syndrome: Recent evaluation for acute CVA w/ L CEA performed and following recovery was complicated by hypercapnic respiratory acidosis requiring BiPAP for several days with pulmonary consultation who felt that his underlying obesity with hypoventilation syndrome as well as JULIUS responsible for his current presentation as well as possible obstructive lung disease. Continue home CPAP q HS. (3) Diabetes mellitus type II with neuropathy: Continue oral home regimen, ADA diet, accu checks w/ ISS, maintained on gabapentin. (4) Hypertension: Continue home regimen including hydrochlorthiazide, lisinopril, metoprolol, PRN hydralazine. (5) Hyperlipidemia: Continue home statin regimen. (6) PAD: Patient previously on silo to Zoll which she had not taken since June but was previously on this regimen and had been following with vascular surgery but stopped since his surgeon moved to [place]. As noted maintained on ASA, high dose statin, BP regimen. (7) GERD: PPI. (8) DVT prophylaxis: Per rehabilitation physician discretion, heparin ordered Code Visit Inpatient E&M: 15389 [facility] Hosp L3
[2018-12-29 22:00] VITALS: BP 169/79; PULSE 84; RESP 16; TEMP 36.4; O2SAT 95
--- NOTE | 2018-12-29 22:45 | NURSING ---
PT STATES HE HAS A THROBBING JACOME TO BACK OF HEAD THAT BEGAN ABOUT 1.5 HOURS AGO. STATES NO OTHER CHANGES. VITAL SIGNS TAKEN. DENIES VISION CHANGES.PERRL. R SIDED WEAKNESS NOTED. PAGE PLACE TO DR PAGAN.
--- NOTE | 2018-12-29 22:55 | NURSING ---
DR PAGAN INFORMED OF PT'S THROBBING #10 OCCIPITAL JACOME. AND VITAL SIGNS. ORDERS GIVEN. DR STEWART INTO ROOM TO TALK TO PT AND ALSO SPEAKS TO DR PAGAN ON PHONE TO DISCUSS PT'S HEADACHE AND BP.
[2018-12-29] MEDS: Senna/Docusate Sodium 1 Tablet 2 TABLET PO (23:05)
[2018-12-29 23:06] VITALS: BP 169/79; PULSE 84
[2018-12-29] MEDS: Atorvastatin Calcium 80 MG Tablet PO (23:06)
[2018-12-29] MEDS: Metoprolol Tartrate 25 MG Tablet PO (23:06)
[2018-12-29] MEDS: Gabapentin 300 MG Capsule PO (23:06)
[2018-12-29] MEDS: Heparin Injection (Vial) 5,000 UNIT/ML VIAL 5000 UNIT SC (23:06)
[2018-12-29] MEDS: Acetaminophen 500 MG Tablet 1000 MG PO (23:22)
[2018-12-29 23:46] LABS: Bedside Glucose 148 mg/dL (70-110)
[2018-12-30 00:21] VITALS: BP 164/84; PULSE 87
--- NOTE | 2018-12-30 00:27 | NURSING ---
DR STEWART NOTIFIED THAT PT'S BP IS 164/84 AND JACOME IS UNRELIEVED WITH TYLENOL AND THAT PT IS ALLERGIC TO CODEINE AND MORPHINE SO UNABLE TO GIVE OXYIR DR PAGAN HAD ORDERED IF CURRENT JACOME UNRELIEVED WTIH TYELNOL. ORDERS GIVEN BY DR STEWART. DR STEWART REQUESTS THAT DR PAGAN BE UPDATED ON PT'S CONDITION.
--- NOTE | 2018-12-30 00:47 | CT_ITS ---
We are attempting to reach an attending provider to discuss findings. An addendum with communication details will be sent when the communication is complete. HISTORY: CVA, HEADACHE TECHNIQUE: Multiple axial images were obtained of the brain without intravenous contrast. A radiation dose optimization technique was used for this scan. COMPARISON: MRI brain December 22, 2018 FINDINGS: # of images incl. paperwork: 264 Mucoperiosteal thickening within the ethmoid air cells and the sphenoid sinuses is similar to the previous study.. Brain volume is minimally atrophic The tiny areas of acute ischemia within the deep white matter of the left frontal lobe from the previous study are minimally suggested, series 2 image 31. Within the left occipital lobe there is an area that measures 1.5 x 1.2 x 0.9 cm that is decreased in density with loss of soto-white differentiation. It is at the level of the occipital horn of left lateral ventricle on the axial images. No lesion is identified within that region on the previous MRI. A previous CT scan of the brain is also available from December 22, 2018. No lesion was present within that region at that time. A subcutaneous lesion, above the left auricle was present previously, and likely represents a sebaceous cyst... No hydrocephalus. No acute intracranial hemorrhage. CT/Brain/Head without Contrast IMPRESSION: Near 1.5 x 1.2 x 0.9 cm area of decreased density and loss of soto-white differentiation within the left occipital lobe suspicious for acute ischemia. ASPECT 9. Individualized dose optimization techniques were used for this CT. at 0232 Reported and signed by: Ifeanyi Felix MD Electronically Signed: Ifeanyi Felix MD at 2:31 EDT Tel , Service support ,
--- NOTE | 2018-12-30 00:55 | NURSING ---
UNSUCDESSFUL ATTEMPT X2 TO INITIATE IV IN PT. [employer]G [employer] TO COME TO UNIT TO INITIATE IV..
--- NOTE | 2018-12-30 01:00 | NURSING ---
PAGE PLACE TO DR PAGAN.
--- NOTE | 2018-12-30 01:08 | NURSING ---
NEUROLOGY JOCKEY VALET TO CONTACT DR PAGAN FOR UNIT.
[2018-12-30 01:28] VITALS: BP 164/84; PULSE 87
[2018-12-30] MEDS: hydrALAZINE 20 MG/ML Vial 10 MG IV (01:28)
--- NOTE | 2018-12-30 01:37 | NURSING ---
CT NOT READY FOR PT YET. PT TO BE SENT AT 0200.
[2018-12-30 01:41] VITALS: BP 162/75; PULSE 69
[2018-12-30 01:48] VITALS: BP 166/81; PULSE 67
--- NOTE | 2018-12-30 01:55 | NURSING ---
DR PAGAN REPAGED BY NEURO KIER BOILER.
--- NOTE | 2018-12-30 02:00 | NURSING ---
PT TO CT VIA CART AND 2 STAFF.
[2018-12-30 02:20] VITALS: BP 126/61; PULSE 64
--- NOTE | 2018-12-30 02:20 | NURSING ---
PT RETURNED FORM CT. BP IS 126/61 P-64 PT REMAINS A/O X 3/
--- NOTE | 2018-12-30 02:42 | NURSING ---
DR ANASTACIO SR INFORMS OF CRITICAL RESULTS ON PT'S CT. PAGE PLACED TO DR PAGAN. DR PAGAN INFORMED OF CRITICAL CT RESULTS. INSTRUCTED TO CONTACT DR STEWART TO ADMIT PT TO ACUTE TELEMETRY UNIT OR TRANSFER TO . PT TO BE DC'D FROM UNIT.
--- NOTE | 2018-12-30 02:54 | NURSING ---
PT UPDATED ON CT RESULT AND BEING TRANSFERRED FROM OUR UNIT. PT'S , [facility] CALLED AND INFORMED OF PT'S DISCHARGE FROM REHAB UNIT.
--- NOTE | 2018-12-30 03:00 | NURSING ---
DR STEWART STATES PT IS TO BE TRANSFERRED BACK TO , [facility] AND PT WILL GO TO ER THERE AND DR GUERRA IS AWARE OF PT RETURN TO FOR ADMIT.
--- NOTE | 2018-12-30 03:45 | NURSING ---
REPORT CALLED TO ZAMZAM TORRES AT AT PHONE # [phone]. PT'S , [facility], SPEAKS WITH PT ON PHONE. PT'S WILL GO TO IN AM.
--- NOTE | 2018-12-30 03:50 | NURSING ---
PT OUT THE DOOR WITH [facility].
--- NOTE | 2018-12-30 23:36 | CON.PCM_ITS ---
Problem List (1) CVA (cerebral vascular accident) Status: Acute Qualifiers: CVA mechanism: unspecified Qualified Code(s): I63.9 - Cerebral infarction, unspecified (2) Hypertension Status: Chronic Qualifiers: Hypertension type: essential hypertension Qualified Code(s): I10 - Essential (primary) hypertension (3) Diabetes mellitus Status: Chronic Qualifiers: Diabetes mellitus type: type 2 Diabetes mellitus corn sheller insulin use: without corn sheller use Diabetes mellitus complication status: with neurologic complications (4) HLD (hyperlipidemia) Status: Chronic Qualifiers: Hyperlipidemia type: unspecified Qualified Code(s): E78.5 - Hyperlipidemia, unspecified (5) GERD (gastroesophageal reflux disease) Status: Chronic Qualifiers: Esophagitis presence: esophagitis presence not specified Qualified Code(s): K21.9 - Gastro-esophageal reflux disease without esophagitis (6) Neuropathy Status: Chronic (7) Obesity (BMI 30.0-34.9) Status: Chronic Reason for Consult Date of Consultation: 12/30/18 Reason for Consultation: Medical consultation. History of Present Illness: The patient is a 68 y/o M w/ PMHx: PAD, Obesity, EtOH Abuse history, HTN, HLD, GERD, Neuropathy, Diabetes mellitus type II who presented initially to the [facility] on 12/29/18 for ongoing PT, OT, CVA evaluations and treatment, transferred from following acute CVA w/ R sided hemiplegia as well as oropharyngeal dysphagia. Patient was recently admitted to [facility] on 12/22/18 for TIA/CVA evaluation and during that admission had evaluation notable for acute Frontal and Parietal CVA w/ severe in the left anterior cerebral, right vertebral and basilar arteries and severe left high-grade stenosis/near occlusion of the left internal carotid, had ongoing headache with CT head with concern for new CVA, transferred back to the ED on 12/30/18 with now return to [facility] for ongoing PT, OT, Speech evaluations. During his hospitalization patient underwent left CEA however his recovery was complicated by hypercapnic respiratory acidosis requiring BiPAP for several days with pulmonary consultation who felt that his underlying obesity with hypoventilation syndrome as well as JULIUS responsible for his current presentation as well as possible obstructive lung disease. Patient had ongoing headache despite tylenol. CT Head without contrast obtained with result noting near 1.5 x 1.2 x 0.9 cm area of decreased density and loss of soto-white differentiation within left occipital lobe suspicious for an acute ischemia. Discussed case with the rehab physician/neurologist and requested assistance with transferring his patient to . Patient was transferred to specifically held in the emergency room per Dr. Anthony the physician he would had him during the recent admission and MRI brain was obtained which noted findings compatible with scattered areas of now acute and early subacute infarction within the left frontal parietal lobes as well as posterior left temporal lobe. Patient noting headache had improved but still having sharp occasional pain in the posterior region/occipital region specifically now only with coughing, when it does occur rated 10 out of 10 but resolves when he is not coughing. From review of records while the patient was in the emergency room at [facility] he continued to have elevated blood pressures well above goal. Patient is uncertain if he received any of his blood pressure medications while in the emergency room. Prior to transition from the [facility] ED to acute rehab facility patient's blood pressure was systolic blood pressure 173 and upon arrival EMS noted most recent blood pressure during transfer with a systolic blood pressure of 180. Discussed presentation and case with rehab physician, Dr. Joey Chance given this presentation with elevated blood pressures and amenable to dosing all BP medication now given likely he did not have in the emergency room. Past Medical History Past Medical History (Chronic Problems): Chronic Problems Hypertension (Chronic) Diabetes mellitus (Chronic) HLD (hyperlipidemia) (Chronic) GERD (gastroesophageal reflux disease) (Chronic) Neuropathy (Chronic) Obesity (BMI 30.0-34.9) (Chronic) Allergies codeine Allergy (Verified 12/22/18 10:55) Hives morphine Allergy (Verified 12/22/18 10:55) Hives Home Medications: Ambulatory Orders Medication Instructions Recorded Aspirin [Aspirin, Baby] 81 mg PO DAILY@0800 12/22/18 Gabapentin [Neurontin] 300 mg PO TID 12/22/18 Glimepiride [Amaryl] 4 mg PO DAILY 12/22/18 Lisinopril [Zestril] 40 mg PO DAILY 12/22/18 Omeprazole 40 mg PO DAILY 12/22/18 Albuterol Inhaler [Ventolin Hfa 1 puff INHALATION Q6H PRN PRN 12/29/18 (SP)] Atorvastatin Calcium 80 mg PO QHS 12/29/18 Hydrochlorothiazide [Hctz] 25 mg PO DAILY 12/29/18 Metoprolol Tartrate 25 mg PO Q12H 12/29/18 Surgical History: rotator cuff repair - left shoulder, total hip arthroplasty - right, total knee arthroplasty - left Psychiatric History: No pertinent psych hx Lives: Spouse/ Significant Other Smoking Status: Never smoker Tobacco Use: Non-smoker Alcohol: Occasional Drugs: None - *Family History Maternal History Items: - - No marked maternal family history of heart disease, diabetes or cancer. Paternal History Items: Cancer - lung Review of Systems Constitutional: Reports: Fatigue. Denies: Chills, Fever, Weight Change HEENT: Reports: Difficulty Swallowing, Dysphasia, Head Aches. Denies: Sinus Congestion, Sinus Drainage Cardiovascular: Denies: Chest Pain, Palpitations Respiratory: Denies: Cough, Shortness of breath at rest, Sputum production Gastrointestinal: Denies: Abdominal Pain, Nausea, Vomiting Genitourinary: Denies: Dysuria Musculoskeletal: Reports: Back Pain. Denies: Joint Pain, Joint Tenderness Skin: Denies: Rash, Wounds Neurological: Reports: Balance problems, Slurred speech, Focal weakness. Denies: Numbness, Tingling Psychiatric: Denies: Anxiety, Depression, Homicidal Ideations, Suicidal Ideations Hematologic/ Lymphatic: Reports: Easy Bruising, Easy Bleeding Subjective: Seated upright in the rehab bed, notes headache now only with coughing, no headache currently now. Objective: Physical Examination: General: awake, alert, oriented x 3 and cooperative, seated upright in bed, NAD, no headache currently, had prior but notes only with coughing. Skin: normal color, turgor, no icterus, cyanosis, s/p L CEA. HEENT: AT/NC, EOMI, PERRLA, mildly dry MM, s/p L CEA, no JVD noted. Lungs: CTA bilaterally, moderate effort, mild decrease BL bases, no rales, ronchi or wheezing. Heart: Regular rate and rhythm; no gallop, rub audible. Abdomen: soft, obese, NTTP, ND, normal BS, no HSM. Extremities: no cyanosis, clubbing, or edema. Neurological: patient awake, alert, oriented x 3; cognitive function intact; pupils equally reactive to light and accomodation; cranial nerves II-XII grossly normal, moving all 4 extremities however limitations to right-sided movement with right-sided hemiplegia, strength 4-5, mild dysarthria. Psychiatric: affect appears normal, no acute evidence of depressive or anxiety feelings. - Physical Exam Body Mass Index (BMI) 33.5 Finger Stick Blood Glucose 260 Assessment/Plan All Active Problems TIA (transient ischemic attack) (Acute) CVA (cerebral vascular accident) (Acute) The patient is a 68 y/o M w/ PMHx: PAD, Obesity, EtOH Abuse history, HTN, HLD, GERD, Neuropathy, Diabetes mellitus type II who presented initially to the [facility] on 12/29/18 for ongoing PT, OT, CVA evaluations and treatment, transferred from following acute CVA w/ R sided hemiplegia as well as oropharyngeal dysphagia. Patient was recently admitted to [facility] on 12/22/18 for TIA/CVA evaluation and during that admission had evaluation notable for acute Frontal and Parietal CVA w/ severe in the left anterior cerebral, right vertebral and basilar arteries and severe left high-grade stenosis/near occlusion of the left internal carotid, had ongoing headache with CT head with concern for new CVA, transferred back to the ED on 12/30/18 with now return to [facility] for ongoing PT, OT, Speech evaluations. (1) Recent Acute CVA Frontal and Parietal CVA and 12/29/18 Acute/Subacute Recurrent CVA: Recent inpatient evaluation at [facility], transferred to OSH following MRI evaluations notable for acute frontal and parietal CVA w/ severe in the left anterior cerebral, right vertebral and basilar arteries and severe left high- grade stenosis/near occlusion of the left internal carotid. During his hospitalization patient underwent left CEA. Patient with ongoing right-sided hemiplegia as well as oropharyngeal dysphagia, continue PT, OT as well as speech therapy evaluations, maintain on aspirin, high-dose statin, BP regimen as well as diabetic regimen, continue nectar thick, mechanical soft diet pending further speech interventions. 12/29/09-12/30/[address] head obtained and [facility] further evaluation with MRI Brain with new acute and subacute CVA. Given ongoing elevated blood pressures will initiate patient home regimen now as suspect may be was not dosed in the emergency room, continue ASA, continue statin, DM regimen. (2) Recent Acute hypercapnic respiratory acidosis secondary to JULIUS, Hypoventilation Syndrome: Recent evaluation for acute CVA w/ L CEA performed and following recovery was complicated by hypercapnic respiratory acidosis requiring BiPAP for several days with pulmonary consultation who felt that his underlying obesity with hypoventilation syndrome as well as JULIUS responsible for his current presentation as well as possible obstructive lung disease. Continue home CPAP q HS. (3) Diabetes mellitus type II with neuropathy: Continue oral home regimen, ADA diet, accu checks w/ ISS, maintained on gabapentin. (4) Hypertension: Continue home regimen including HCTZ, lisinopril, metoprolol with dose of these medications upon admission given suspected did not have during the day at ED, may need additional regimen added if remains elevated and not at goal, PRN hydralazine. (5) Hyperlipidemia: Continue home statin regimen. (6) PAD: Patient previously on cilostazol which he had not taken since June but was previously on this regimen and had been following with vascular surgery but stopped since his surgeon moved to [place]. As noted maintained on ASA, high dose statin, BP regimen with alterations to achieve goal as needed. (7) GERD: PPI. (8) DVT prophylaxis: Per rehabilitation physician discretion. Code Visit Inpatient E&M: [id number] [facility] Hosp L3
--- NOTE | 2018-12-30 23:36 | CON.PCM_ITS ---
Problem List (1) Hypertension Status: Chronic (2) Diabetes mellitus Status: Chronic (3) CVA (cerebral vascular accident) Status: Chronic (4) HLD (hyperlipidemia) Status: Chronic (5) GERD (gastroesophageal reflux disease) Status: Chronic (6) Neuropathy Status: Chronic (7) Obesity (BMI 30.0-34.9) Status: Chronic Reason for Consult Date of Consultation: 12/30/18 Reason for Consultation: Medical consultation. History of Present Illness: The patient is a 68 y/o M w/ PMHx: PAD, Obesity, EtOH Abuse history, HTN, HLD, GERD, Neuropathy, Diabetes mellitus type II who presented initially to the [facility] on 12/29/18 for ongoing PT, OT, CVA evaluations and treatment, transferred from following acute CVA w/ R sided hemiplegia as well as oropharyngeal dysphagia. Patient was recently admitted to [facility] on 12/22/18 for TIA/CVA evaluation and during that admission had evaluation notable for acute Frontal and Parietal CVA w/ severe in the left anterior cerebral, right vertebra l and basilar arteries and severe left high-grade stenosis/near occlusion of the left internal carotid, had ongoing headache with CT head with concern for new CVA, transferred back to the ED on 12/30/18 with now return to [facility] for ongoing PT, OT, Speech evaluations. During his hospitalization patient underwent left CEA however his recovery was complicated by hypercapnic respiratory acidosis requiring BiPAP for several days with pulmonary consultation who felt that his underlying obesity with hypoventilation syndrome as well as JULIUS responsible for his current presentation as well as possible obstructive lung disease. Patient had ongoing headache despite tylenol. CT Head without contrast obtained with result noting near 1.5 x 1.2 x 0.9 cm area of decreased density and loss of soto-white differentiation within left occipital lobe suspicious for an acute ischemia. Discussed case with the rehab physician/neurologist and requested assistance with transferring his patient to . Patient was transferred to specifically held in the emergency room per Dr. Anthony the physician he would had him during the recent admission and MRI brain was obtained which noted findings compatible with scattered areas of now acute and early subacute infarction within the left frontal parietal lobes as well as posterior left temporal lobe. Patient noting headache had improved but still having sharp occasional pain in the posterior region/occipital region specifically now only with coughing, when it does occur rated 10 out of 10 but resolves when he is not coughing. From review of records while the patient was in the emergency room at [facility] he continued to have elevated blood pressures well above goal. Patient is uncertain if he received any of his blood pressure medications while in the emergency room. Prior to transition from the [facility] ED to acute rehab facility patient's blood pressure was systolic blood pressure 173 and upon arrival EMS noted most recent blood pressure during transfer with a systolic blood pressure of 180. Discussed presentation and case with rehab physician, Dr. Joey Chance given this presentation with elevated blood pressures and amenable to dosing all BP medication now given likely he did not have in the emergency room. Past Medical History Past Medical History (Chronic Problems): Chronic Problems Hypertension (Chronic) Diabetes mellitus (Chronic) CVA (cerebral vascular accident) (Chronic) HLD (hyperlipidemia) (Chronic) GERD (gastroesophageal reflux disease) (Chronic) Neuropathy (Chronic) Obesity (BMI 30.0-34.9) (Chronic) Allergies codeine Allergy (Verified 12/22/18 10:55) Hives morphine Allergy (Verified 12/22/18 10:55) Hives Home Medications: Ambulatory Orders Medication Instructions Recorded Aspirin [Aspirin, Baby] 81 mg PO DAILY@0800 12/22/18 Gabapentin [Neurontin] 300 mg PO TID 12/22/18 Glimepiride [Amaryl] 4 mg PO DAILY 12/22/18 Lisinopril [Zestril] 40 mg PO DAILY 12/22/18 Omeprazole 40 mg PO DAILY 12/22/18 Atorvastatin Calcium 40 mg PO QHS 12/29/18 Hydrochlorothiazide [Hctz] 25 mg PO DAILY 12/29/18 Metoprolol Tartrate 25 mg PO Q12H 12/29/18 Surgical History: rotator cuff repair - left shoulder, total hip arthroplasty - right, total knee arthroplasty - left Psychiatric History: No pertinent psych hx Lives: Spouse/ Significant Other Smoking Status: Never smoker Tobacco Use: Non-smoker Alcohol: Occasional Drugs: None - *Family History Maternal History Items: - - No marked maternal family history of heart disease, diabetes or cancer. Paternal History Items: Cancer - lung Review of Systems Constitutional: Reports: Fatigue. Denies: Chills, Fever, Weight Change HEENT: Reports: Difficulty Swallowing, Dysphasia, Head Aches. Denies: Sinus Congestion, Sinus Drainage Cardiovascular: Denies: Chest Pain, Palpitations Respiratory: Denies: Cough, Shortness of breath at rest, Sputum production Gastrointestinal: Denies: Abdominal Pain, Nausea, Vomiting Genitourinary: Denies: Dysuria Musculoskeletal: Reports: Back Pain. Denies: Joint Pain, Joint Tenderness Skin: Denies: Rash, Wounds Neurological: Reports: Balance problems, Slurred speech, Focal weakness. Denies: Numbness, Tingling Psychiatric: Denies: Anxiety, Depression, Homicidal Ideations, Suicidal Ideations Hematologic/ Lymphatic: Reports: Easy Bruising, Easy Bleeding Subjective: Seated upright in the rehab bed, notes headache now only with coughing, no headache currently now. Objective: Physical Examination: General: awake, alert, oriented x 3 and cooperative, seated upright in bed, NAD, no headache currently, had prior but notes only with coughing. Skin: normal color, turgor, no icterus, cyanosis, s/p L CEA. HEENT: AT/NC, EOMI, PERRLA, mildly dry MM, s/p L CEA, no JVD noted. Lungs: CTA bilaterally, moderate effort, mild decrease BL bases, no rales, nessa chi or wheezing. Heart: Regular rate and rhythm; no gallop, rub audible. Abdomen: soft, obese, NTTP, ND, normal BS, no HSM. Extremities: no cyanosis, clubbing, or edema. Neurological: patient awake, alert, oriented x 3; cognitive function intact; pupils equally reactive to light and accomodation; cranial nerves II-XII grossly normal, moving all 4 extremities however limitations to right-sided movement with right-sided hemiplegia, strength 4-5, mild dysarthria. Psychiatric: affect appears normal, no acute evidence of depressive or anxiety feelings. - Physical Exam Body Mass Index (BMI) 33.5 Finger Stick Blood Glucose 260 Assessment/Plan All Active Problems TIA (transient ischemic attack) (Acute) The patient is a 68 y/o M w/ PMHx: PAD, Obesity, EtOH Abuse history, HTN, HLD, GERD, Neuropathy, Diabetes mellitus type II who presented initially to the [facility] on 12/29/18 for ongoing PT, OT, CVA evaluations and treatment, transferred from following acute CVA w/ R sided hemiplegia as well as oropharyngeal dysphagia. Patient was recently admitted to [facility] on 12/22/18 for TIA/CVA evaluation and during that admission had evaluation notable for acute Frontal and Parietal CVA w/ severe in the left anterior cerebral, right vertebral and basilar arteries and severe left high-grade stenosis/near occlusion of the left internal carotid, had ongoing headache with CT head with concern for new CVA, transferred back to the ED on 12/30/18 with now return to [facility] for ongoing PT, OT, Speech evaluations. (1) Recent Acute CVA Frontal and Parietal CVA and 12/29/18 Acute/Subacute Recurrent CVA: Recent inpatient evaluation at [facility], transferred to OSH following MRI evaluations notable for acute frontal and parietal CVA w/ severe in the left anterior cerebral, right vertebral and basilar arteries and severe left high- grade stenosis/near occlusion of the left internal carotid. During his hospitalization patient underwent left CEA. Patient with ongoing right-sided hemiplegia as well as oropharyngeal dysphagia, continue PT, OT as well as speech therapy evaluations, maintain on aspirin, high-dose statin, BP regimen as well as diabetic regimen, continue nectar thick, mechanical soft diet pending further speech interventions. 12/29/09-12/30/[address] head obtained and transfer to [facility] further evaluation with MRI Brain with new acute and subacute CVA. Given ongoing elevated blood pressures will initiate patient home regimen now as suspect may be was not dosed in the emergency room, continue ASA, continue statin, DM regimen. (2) Recent Acute hypercapnic respiratory acidosis secondary to JULIUS, Hypoventilation Syndrome: Recent evaluation for acute CVA w/ L CEA performed and following recovery was complicated by hypercapnic respiratory acidosis requiring BiPAP for several days with pulmonary consultation who felt that his underlying obesity with hypoventilation syndrome as well as JULIUS responsible for his current presentation as well as possible obstructive lung disease. Continue home CPAP q HS. (3) Diabetes mellitus type II with neuropathy: Continue oral home regimen, ADA diet, accu checks w/ ISS, maintained on gabapentin. (4) Hypertension: Continue home regimen including HCTZ, lisinopril, metoprolol with dose of these medications upon admission given suspected did not have during the day at ED, may need additional regimen added if remains elevated and not at goal, PRN hydralazine. (5) Hyperlipidemia: Continue home statin regimen. (6) PAD: Patient previously on cilostazol which he had not taken since June but was previously on this regimen and had been following with vascular surgery but stopped since his surgeon moved to [place]. As noted maintained on ASA, high dose statin, BP regimen with alterations to achieve goal as needed. (7) GERD: PPI. (8) DVT prophylaxis: Per rehabilitation physician discretion. Code Visit Inpatient E&M: [id number] Subs Hosp L3
[2018-12-30 23:44] VITALS: BMI 33.5
[2018-12-30 23:50] VITALS: BP 167/96; PULSE 87; RESP 18; TEMP 37.1; O2SAT 95
[2018-12-31] VITALS (12 sets, daily range): BP systolic 133–167; BP diastolic 67–96; PULSE 73–91; RESP 18; TEMP 35.9–37.2; O2SAT 87–96
[2018-12-31] MEDS: Lisinopril 40 MG Tablet PO ×2 (01:09→09:03)
[2018-12-31] MEDS: Metoprolol Tartrate 25 MG Tablet PO (01:09)
[2018-12-31] MEDS: hydroCHLOROthiazide 25 MG Tablet PO ×2 (01:09→09:04)
[2018-12-31] MEDS: Heparin Injection (Vial) 5,000 UNIT/ML VIAL 5000 UNIT SC ×3 (05:21→21:50)
[2018-12-31] MEDS: Gabapentin 300 MG Capsule PO ×2 (05:21→13:53)
[2018-12-31 06:03] LABS: Absolute Lymphocyte Count 1.18 X10^3/ul (0.83-4.51); Absolute Neutrophil Count 4.8 X10^3/uL (2.0-7.7); Basophil# 0.04 X10^3/uL; Basophil% 0.5 % (0-1); Eosinophil# 0.67 X10^3/uL; Hematocrit 46.7 % (40-54); Hemoglobin 13.7 g/dl (13.0-16.5); Lymphocyte # 1.18 X10^3/ul (4.0); Lymphocyte % 15.9 % (19-41); Mean Corp Hgb Conc 29.3 g/gl (32-36); Mean Corpuscular Hgb 27.7 pg (27.0-32.0); Mean Corpuscular Volume 94.5 fL (80-94); Mean Platelet Vol. 11.7 fl (6.2-12.0); Monocyte# 0.71 X10^3/uL; Monocyte% 9.6 % (0-10); Neutrophil % 64.9 % (47-70); Platelet Count 219 K/mm3 (150-450); RBC Distribution Width CV 12.7 % (11.6-14.6); Red Blood Count 4.94 M/mm3 (4.6-6.2); White Blood Count 7.4 K/mm3 (4.4-11.0)
[2018-12-31 06:06] LABS: POSITIVE COUNT NO; POSITIVE DIFFERENTIAL NO; POSITIVE MORPHOLOGY NO
[2018-12-31 06:16] LABS: ALB/GLOB Ratio 0.9 RATIO (0.9-2.4); AST(SGOT) 40 U/L (15-37); Alanine Aminotransfer ALT/SGPT 42 U/L (16-61); Albumin, Serum 3.2 g/dL (3.2-5.0); Alkaline Phosphatase 58 U/L (45-117); Anion Gap 9 (5-15); BUN 9 mg/dL (7-18); BUN/Creat Ratio 15.7 RATIO (10-20); Calcium,Total 9.2 mg/dL (8.5-10.1); Chloride 94 mmol/L (98-107); Creatinine, Serum 0.57 mg/dL (0.70-1.30); EST Glomerular Filtration Rate 150 mL/min (>60); Est Glom Filt Rate - Afr Amer 181 mL/min (>60); Globulin 3.5 g/dL (2.2-4.2); Glucose 146 mg/dL (74-106); Potassium 3.9 mmol/L (3.5-5.1); Protein, Total 6.7 g/dL (6.4-8.2); Sodium Level 141 mmol/L (136-145)
[2018-12-31] MEDS: Senna/Docusate Sodium 1 Tablet 2 TABLET PO (09:03)
[2018-12-31] MEDS: Glimepiride 4 MG Tablet PO (09:04)
[2018-12-31] MEDS: Aspirin 81 MG TAB.CHEW PO (09:04)
[2018-12-31] MEDS: Pantoprazole Sodium 40 MG Tablet PO (09:14)
[2018-12-31] MEDS: Clopidogrel Bisulfate 75 MG Tablet PO (09:14)
--- NOTE | 2018-12-31 09:30 | RAD_ITS ---
STUDY: X-RAY CHEST REASON FOR EXAM: Male, 68 years old. Cough. History of recent stroke. TECHNIQUE: PA and lateral views of the chest. COMPARISON: Comparison is made with prior study dated December 22, 2018. FINDINGS: Elevation of the right hemidiaphragm. The lungs are clear and expanded. There is no demonstrated pleural abnormality. There is mild cardiac enlargement. Normal mediastinum and elliott. Normal visualized pulmonary arteries. There is atherosclerotic tortuosity of the aortic arch and descending thoracic aorta. There are diffuse degenerative changes of the visualized thoracic spine. Dextroscoliosis. The patient is status post left shoulder replacement. There is no demonstrated abnormality of the visualized soft tissue structures of the upper abdomen. RAD/Chest PA and Lateral IMPRESSION: Mild thyromegaly. The lungs are clear. Electronically Signed: Baudilio Maldonado, at 10:09 EDT , Service support ,
[2018-12-31] MEDS: Metoprolol Tartrate 50 MG Tablet PO (10:27)
[2018-12-31 11:11] LABS: Bedside Glucose 257 mg/dL (70-110)
--- NOTE | 2018-12-31 11:19 | PCM.RU.PYE ---
Admission Information Status Changes from Prescreening?: No changes Identified Actual Problem List:: Mobility Impaired, Self Care Deficit, BP, Hypertension Potential Problem List:: DVT, Bleeding, Infection, UTI, Aspiration, Falls, Skin Integrity, Depression Risk of Complications DVT: LMWH, MYRIAM Hose, Sequential Compression Device Bleeding: Monitor Lab Values, Nursing to Teach Precautions for anti-coagulation therapy., Wound, if applicable, to be assessed every shift., Stroke patients assessed for lethargy or change in status. Infection: Clinical Staff to Monitor for S/S of infection:, S/S of infection include fever, redness, warmth, etc. Urinary Tract Infection: Monitor for frequency, burning, discomfort, or incontinence., Nursing will obtain urine sample for urinalysis and C&S when ordered. Aspiration: Clinical staff will monitor for coughing, drooling, congestion., Speech will evaluate swallowing and dsyphasia., Nursing will monitor patient swallowing during meals. Falls: Patient will be evaluated for Fall Precautions, Patient will be placed on Fall Precautions as indicated per protocol. Skin Breakdown: Nursing will assess skin daily using assessment tool., Nursing will place on Skin Breakdown Precautions as indicated. Pain: Clinical staff will assess patient's pain level per protocol., Medications will be given, if needed, and the pain level reassessed., Other methods: Massage, distraction, decrease stimulus, etc. used PRN. Plan of Care Patient requires physician specializing in physical medicine and rehab oversight to provide close medical supervision of rehab issues including: Pain Management, Sleep Problems, Bowel and Bladder, Medical and co-morbidity Management, DVT prophylaxis, Rehabilitation Leadership, Coordination of treatment team Patient needs Physical Therapy: For a minimum of 1 hour, At least 5 out of 7 days Patient needs Physical Therapy to improve:: Mobility, Mobility, Mobility, Strengthening, Transfers, Stretching, ROM, Endurance, Stairs, Gait, Balance Patient needs Occupational Therapy: For a minimum of 1 hour, At least 5 out of 7 days Patient needs Occupational Therapy to improve ADL's incl.: Eating, Grooming, Bathing, Dressing, Toileting, Toilet transfers, Community Reintegration, Higher functioning activities, Household tasks, Adaptive Equipment, Splinting, Other activities as determined Patient requires speech therapy: For a minimum of 1 hour, At least 5 out of 7 days Patient requires speech therapy for: Swallowing, Cognition, Language Skills, Compensatory Strategies Patient requires 16/02 Rehabilitation Nursing for: Pain Issues, Identifying and preventing risk factors, Monitoring and reporting current medical conditions, Assisting with ambulation, transfer, and all ADL's, Teaching patients about disease process and medications, Family teaching, Providing safe environment, Bowel and Bladder Issues, Skin integrity, Medication Management Patient needs Professional Application Designer/ Case Management for: Discharge Planning, Arranging Home Equipment or Services, Family Interventions Patient needs Dietary and Nutrition Services for: Adequate Nutrition, Nutritional Supplements, Nutritional Education Goals Patient will remain: free from falls, or injury at time of discharge. Patient will perform bed mobility at: MOD I level of assist. Patient will complete transfers from bed to chair at: MOD I level of assist. Patient will ambulate: 100 feet, with MOD I assist, with LRD Patient will complete upper body dressing at: MOD I level of assist. Patient will complete lower body dressing at: MOD I level of assist. Patient will complete toileting at: MOD I level of assist. Patient will perform bathing at: MOD I level of assist. Patient will complete grooming at: MOD I level of assist. Patient will complete home management skills at: MOD I level of assist. Patient will achieve: 12 stairs, at MOD I assist Patient will have pain level of: of 3 or less Patient's skin will: remain intact, free from infection. Patient will receive: adequate nutrition. Discharge Planning Pt Prognosis for Sig. Practical Improv. w/in Reasonable Time: Good Estimated Length of stay (days): 16 Anticipated D/C Destination: Home with Outpt Therapy Was Preadmission Assessment Accurate?: Yes
--- NOTE | 2018-12-31 15:04 | CPS ---
12/31/2018 1445: Patient around 90% on room air, placed back on 2lpm nc. Home CPAP unit set-up at bedside. Setting at 8.5. Patient denied home Oxygen, however, an O2 adaptor was already in place on the CPAP Machine. 2lpm oxygen piped in to CPAP. CPAP placed on patient and sats at 91%. RN aware.
--- NOTE | 2018-12-31 15:41 | PCM.HP.COS ---
<SeanCristytwan Madera 01/11/19 04:36> Past Medical History Past Medical History (Chronic Problems): Chronic Problems Hypertension (Chronic) Diabetes mellitus (Chronic) CVA (cerebral vascular accident) (Chronic) HLD (hyperlipidemia) (Chronic) GERD (gastroesophageal reflux disease) (Chronic) Neuropathy (Chronic) Obesity (BMI 30.0-34.9) (Chronic) Home Medications: Ambulatory Orders Medication Instructions Recorded Aspirin [Aspirin, Baby] 81 mg PO DAILY@0800 12/22/18 Gabapentin [Neurontin] 300 mg PO TID 12/22/18 Glimepiride [Amaryl] 4 mg PO DAILY 12/22/18 Lisinopril [Zestril] 40 mg PO DAILY 12/22/18 Omeprazole 40 mg PO DAILY 12/22/18 Atorvastatin Calcium 40 mg PO QHS 12/29/18 Hydrochlorothiazide [Hctz] 25 mg PO DAILY 12/29/18 Metoprolol Tartrate 25 mg PO Q12H 12/29/18 Assessment/Plan All Active Problems TIA (transient ischemic attack) (Acute) <Lakeisha Garnica S - Last Filed: 01/11/19 04:36> History of Present Illness Date of Admission: 12/30/18 Chief Complaint: Debility secondary to punctate foci of restricted diffusion post left CEA The patient is a 68 year old M with PMH of HTN, DM type II, PAD, JULIUS, HLD, GERD, Neuropathy. Patient admitted to [facility] on 12/29/2018 for debility secondary to punctate foci of restricted diffusion post left CEA for greater of 3 hours of therapy daily with the goal of returning back home at or near her prior level functional dependence. Patient presented to [facility] ER on 12/22/18 for 2 different times of right arm numbness and weakness which resolved and patient was told by coworkers he has slurred speech on 12/22/2018, which symptoms resolved prior to ER. MRA of head showed atherosclerotic disease with multifocal segmental stenosis seen most CVA within left anterior cerebral, right vertebral and basilar arteries. MRA of the neck showed atherosclerotic disease most severe on the left with high-grade stenosis/near occlusion of the cervical portion of the left internal carotid artery. HgbA1c 8.8 % Patient was transferred to [facility]. Left CEA was performed on 12/23/2018 due to MRA and CTA showed severe stenosis in the proximal left ICA. Antiplatelet asa. Patient developed right-sided weakness postop. Patient developed HTN and hypercapnic respiratory acidosis requiring BiPAP for several days. Pulmonary was consulted and thought he had underlying obesity hypoventilation as well as known JULIUS. Patient was admitted to [facility] on 12/29/2018 developed a severe headache, CT obtained and showed 1.5 x 1.2 x 0.9 cm area of decreased density and loss of soto-white differentiation within the left occipital lobe suspicious for acute ischemia. Patient transferred back to [facility] on 12/30/18. MRI obtained are compatible with scattered areas of acute to early subacute infarction within the left frontoparietal lobes and posterior left temporal lobe the MRA of the neck is markedly degraded by motion rendering the study nondiagnostic for focal narrowing. Plavix was added 75 mg due to perioperative infarcts clinically silent. Headache resolved and patient transferred back to [facility] on 12/30/2018. Patient lives with spouse in a split-level home is retired. Patient was independent prior with all ADLs, mobility and transfers and driving. Past Medical History Allergies codeine Allergy (Verified 12/22/18 10:55) Hives morphine Allergy (Verified 12/22/18 10:55) Hives Surgical History: rotator cuff repair - left shoulder, total hip arthroplasty - right, total knee arthroplasty - left Psychiatric History: No pertinent psych hx Lives: Spouse/ Significant Other Smoking Status: Never smoker Tobacco Use: Non-smoker Alcohol: Occasional Drugs: None - *Family History Maternal History Items: - - No marked maternal family history of heart disease, diabetes or cancer. Paternal History Items: Cancer - lung Review of Systems Constitutional: Denies: Chills, Fever, Weight Change Eyes: Denies: Blurred vision, Double vision, Vision Change HEENT: Reports: Difficulty Swallowing. Denies: Difficulty Hearing, Nasal Congestion, Sinus Congestion, Visual Changes Cardiovascular: Denies: Chest Pain, Chest Pressure, Chest Tightness, Palpitations Respiratory: Reports: Cough - x 2 weeks, non-productive Gastrointestinal: Denies: Abdominal Pain, Constipation, Diarrhea Genitourinary: Reports: Incontinence - new onset, Urgency. Denies: Dysuria, Frequency Musculoskeletal: Denies: Joint Pain, Joint Tenderness Skin: Denies: Rash, Wounds Neurological: Denies: Blurred vision, Double vision, Slurred speech, Headaches, Numbness, Tingling Psychiatric: Denies: Anxiety, Depression, Homicidal Ideations, Suicidal Ideations VTE Information - Inpt Only VTE Present on Admission: No VTE Mechan Device Prophylaxis: SCD's, Knee High MYRIAM Hose Subjective: Per nursing no issues overnight. Per patient tolerating therapies. Patient c/o non-productive cough x2 weeks. Denies fever, chills, headache, dizziness, or lightheadedness, chest pain or tightness. Mild SOB with exertion. - Physical Exam General: Alert, Oriented x3, Cooperative HEENT: Atraumatic, PERRLA Oral: Moist Mucosa Neck: Supple, No JVD Lungs: Clear to auscultation, Normal air movement, Diminished - slight to bases Cardiovascular: Regular rate, Regular Rhythm Abdomen: Bowel Sounds Present, Soft, Non Tender, Obese Extremities: No clubbing, No cyanosis, Edema - non-pitting BLE and right hand non-pitting Skin: No rashes, No breakdown Musculoskeletal: No Tenderness to Palpation of Joints or Extremities Neurological: Cranial nerves II-XII grossly intact, Deep Tendon Reflexes 2+/4 and Symmetrical, Motor Exam 5/5 strength throughout - except RUE/RLE 4/5, Slurred Speech - mild Psych/Mental Status: Normal Affect, Appropriate, Alert and oriented to time, place, person, mood and affect Vital Signs Temp Pulse Resp BP Pulse Ox 98.0 F 86 18 133/67 H 96 12/31/18 07:00 12/31/18 13:12 12/31/18 07:00 12/31/18 13:12 12/31/18 14:30 Oxygen Flow Rate (L/min) 2 Oxygen Delivery Method Nasal Cannula Weight: 106 kg Body Mass Index (BMI) 33.5 Finger Stick Blood Glucose 260 Intake and Output for Last 24 Hours 12/29/18 12/30/18 12/31/18 23:59 23:59 23:59 Intake Total 480 / 480 Output Total 625 / 625 Balance -145 / -145 Laboratory Tests Past 24 Hrs 12/31/18 12/31/18 05:10 05:10 WBC 7.4 RBC 4.94 Hgb 13.7 Hct 46.7 MCV 94.5 H MCH 27.7 MCHC 29.3 L RDW 12.7 RDW Differential 43.0 Plt Count 219 MPV 11.7 Immature Gran % (Auto) 0.100 Neut % (Auto) 64.9 Lymph % (Auto) 15.9 L [place] % (Auto) 9.6 Eos % (Auto) 9.0 H Baso % (Auto) 0.5 Absolute Neuts (auto) 4.8 Absolute Lymphs (auto) 1.18 Total Counted Not Reportable Sodium 141 Potassium 3.9 Chloride 94 L Carbon Dioxide 38.0 H Anion Gap 9 BUN 9 Creatinine 0.57 L Estim Creat Clear Calc 73.00 Est GFR (MDRD) Af Amer 181 Est GFR (MDRD) Non-Af 150 BUN/Creatinine Ratio 15.7 Glucose 146 H Calcium 9.2 Total Bilirubin 0.90 AST 40 H ALT 42 Alkaline Phosphatase 58 Total Protein 6.7 Albumin 3.2 Globulin 3.5 Albumin/Globulin Ratio 0.9 POC Glucose 12/31/18 11:05 POC Glucose 257 H Assessment/Plan The patient is a 68 year old M with PMH of HTN, DM type II, PAD, JULIUS, HLD, GERD, and Neuropathy. Patient admitted to [facility] you on 12/29/2018 for debility secondary to punctate foci of restricted diffusion post left CEA for greater of 3 hours of therapy daily with the goal of returning back home at or near her prior level functional dependence. Patient presented to [facility] ER on 12/22/18 for 2 different times of right arm numbness and weakness which resolved and patient was told by coworkers he has slurred speech on 12/22/2018, which symptoms resolved prior to ER. MRA of head showed atherosclerotic disease with multifocal segmental stenosis seen most CVA within left anterior cerebral, right vertebral and basilar arteries. MRA of the neck showed atherosclerotic disease most severe on the left with high-grade stenosis/near occlusion of the cervical portion of the left internal carotid artery. HgbA1c 8.8 % Patient was transferred to [facility]. Left CEA was performed on 12/23/2018 due to MRA and CTA showed severe stenosis in the proximal left ICA. Antiplatelet asa. Patient developed right-sided weakness postop. Patient developed HTN and hypercapnic respiratory acidosis requiring BiPAP for several days. Pulmonary was consulted and thought he had underlying obesity hypoventilation as well as known JULIUS. Patient was admitted to [facility] on 12/29/2018 developed a severe headache, CT obtained and showed 1.5 x 1.2 x 0.9 cm area of decreased density and loss of soto-white differentiation within the left occipital lobe suspicious for acute ischemia. Patient transferred back to [facility] on 12/30/18. MRI obtained are compatible with scattered areas of acute to early subacute infarction within the left frontoparietal lobes and posterior left temporal lobe the MRA of the neck is markedly degraded by motion rendering the study nondiagnostic for focal narrowing. Plavix was added 75 mg due to perioperative infarcts clinically silent. Headache resolved and patient transferred back to [facility] on 12/30/2018. Patient lives with spouse in a split-level home is retired. Patient was independent prior with all ADLs, mobility and transfers and driving. Plan - PT for mobility - OT for ADLs - ST for dysphagia - Analgesics as needed - Punctate foci of restricted diffusion post left CEA on plavix and ASA, statin lipid profile - HTN on coreg, hctz, zestril - DM type II on amaryl accuchecks HgbA1c 8.8% - JULIUS on bipap - PAD on GBN - HLD on statin - GERD on protonix - Dysphagia on mechanical soft, nectar thickened liquids - Non-productive cough x 2 weeks CXR Mild thyromegaly. The lungs are clear. - Obesity BMI 33.5 - Hypercapnic respiratory acidosis resolved - GI/DVT prophylaxis protonix/Heparin knee high myriam hose, SCDs - Fall precautions - Bowel protocol - Medical management per hospitalist-consult - F/U with Neurosurgeon, PCP, and Pulmonary
--- NOTE | 2018-12-31 15:49 | HP.PCM.COS_ITS ---
History of Present Illness Date of Admission: 12/30/18 Chief Complaint: Debility secondary to punctate foci of restricted diffusion post left CEA The patient is a 68 year old M with PMH of HTN, DM type II, PAD, JULIUS, HLD, GERD, Neuropathy. Patient admitted to [facility] you on 12/29/2018 for debility secondary to punctate foci of restricted diffusion post left CEA for greater of 3 hours of therapy daily with the goal of returning back home at or near her prior level functional dependence. Patient presented to [facility] ER on 12/22/18 for 2 different times of right arm numbness and weakness which resolved and patient was told by coworkers he has slurred speech on 12/22/2018, which s ymptoms resolved prior to ER. MRA of head showed atherosclerotic disease with multifocal segmental stenosis seen most CVA within left anterior cerebral, right vertebral and basilar arteries. MRA of the neck showed atherosclerotic disease most severe on the left with high-grade stenosis/near occlusion of the cervical portion of the left internal carotid artery. HgbA1c 8.8 % Patient was transferred to [facility]. Left CEA was performed on 12/23/2018 due to MRA and CTA showed severe stenosis in the proximal left ICA. Antiplatelet asa. Patient developed right-sided weakness postop. Patient developed HTN and hypercapnic respiratory acidosis requiring BiPAP for several days. Pulmonary was consulted and thought he had underlying obesity hypoventilation as well as known JULIUS. Patient was admitted to [facility] on 12/29/2018 developed a severe headache, CT obtained and showed 1.5 x 1.2 x 0.9 cm area of decreased density and loss of soto-white differentiation within the left occipital lobe suspicious for acute ischemia. Patient transferred back to [facility] on 12/30/18. MRI obtained are compatible with scattered areas of acute to early subacute infarction within the left frontoparietal lobes and posterior left temporal lobe the MRA of the neck is markedly degraded by motion rendering the study nondiagnostic for focal narrowing. Plavix was added 75 mg due to perioperative infarcts clinically silent. Headache resolved and patient transferred back to [facility] on 12/30/2018. Patient lives with spouse in a split-level home is retired. Patient was independent prior with all ADLs, mobility and transfers and driving. Past Medical History Past Medical History (Chronic Problems): Chronic Problems Hypertension (Chronic) Diabetes mellitus (Chronic) HLD (hyperlipidemia) (Chronic) GERD (gastroesophageal reflux disease) (Chronic) Neuropathy (Chronic) Obesity (BMI 30.0-34.9) (Chronic) Allergies codeine Allergy (Verified 12/22/18 10:55) Hives morphine Allergy (Verified 12/22/18 10:55) Hives Home Medications: Ambulatory Orders Medication Instructions Recorded Aspirin [Aspirin, Baby] 81 mg PO DAILY@0800 12/22/18 Gabapentin [Neurontin] 300 mg PO TID 12/22/18 Glimepiride [Amaryl] 4 mg PO DAILY 12/22/18 Lisinopril [Zestril] 40 mg PO DAILY 12/22/18 Omeprazole 40 mg PO DAILY 12/22/18 Albuterol Inhaler [Ventolin Hfa 1 puff INHALATION Q6H PRN PRN 12/29/18 (SP)] Atorvastatin Calcium 40 mg PO QHS 12/29/18 Hydrochlorothiazide [Hctz] 25 mg PO DAILY 12/29/18 Metoprolol Tartrate 25 mg PO Q12H 12/29/18 Surgical History: rotator cuff repair - left shoulder, total hip arthroplasty - right, total knee arthroplasty - left Psychiatric History: No pertinent psych hx Lives: Spouse/ Significant Other Smoking Status: Never smoker Tobacco Use: Non-smoker Alcohol: Occasional Drugs: None - *Family History Maternal History Items: - - No marked maternal family history of heart disease, diabetes or cancer. Paternal History Items: Cancer - lung Review of Systems Constitutional: Denies: Chills, Fever, Weight Change Eyes: Denies: Blurred vision, Double vision, Vision Change HEENT: Reports: Difficulty Swallowing. Denies: Difficulty Hearing, Nasal Congestion, Sinus Congestion, Visual Changes Cardiovascular: Denies: Chest Pain, Chest Pressure, Chest Tightness, Palpitations Respiratory: Reports: Cough - x 2 weeks, non-productive Gastrointestinal: Denies: Abdominal Pain, Constipation, Diarrhea Genitourinary: Reports: Incontinence - new onset, Urgency. Denies: Dysuria, Frequency Musculoskeletal: Denies: Joint Pain, Joint Tenderness Skin: Denies: Rash, Wounds Neurological: Denies: Blurred vision, Double vision, Slurred speech, Headaches, Numbness, Tingling Psychiatric: Denies: Anxiety, Depression, Homicidal Ideations, Suicidal Ideations VTE Information - Inpt Only VTE Present on Admission: No VTE Mechan Device Prophylaxis: SCD's, Knee High DOROTHY Hose Subjective: Per nursing no issues overnight. Per patient tolerating therapies. Patient c/o non-productive cough x2 weeks. Denies fever, chills, headache, dizziness, or lightheadedness, chest pain or tightness. Mild SOB with exertion. - Physical Exam General: Alert, Oriented x3, Cooperative HEENT: Atraumatic, PERRLA Oral: Moist Mucosa Neck: Supple, No JVD Lungs: Clear to auscultation, Normal air movement, Diminished - slight to bases Cardiovascular: Regular rate, Regular Rhythm Abdomen: Bowel Sounds Present, Soft, Non Tender, Obese Extremities: No clubbing, No cyanosis, Edema - non-pitting BLE and right hand non-pitting Skin: No rashes, No breakdown Musculoskeletal: No Tenderness to Palpation of Joints or Extremities Neurological: Cranial nerves II-XII grossly intact, Deep Tendon Reflexes 2+/4 and Symmetrical, Motor Exam 5/5 strength throughout - except RUE/RLE 4/5, Slurred Speech - mild Psych/Mental Status: Normal Affect, Appropriate, Alert and oriented to time, place, person, mood and affect Vital Signs Temp Pulse Resp BP Pulse Ox 98.0 F 86 18 133/67 H 96 12/31/18 07:00 12/31/18 13:12 12/31/18 07:00 12/31/18 13:12 12/31/18 14:30 Oxygen Flow Rate (L/min) 2 Oxygen Delivery Method Nasal Cannula Weight: 106 kg Body Mass Index (BMI) 33.5 Finger Stick Blood Glucose 260 Intake and Output for Last 24 Hours 12/29/18 12/30/18 12/31/18 23:59 23:59 23:59 Intake Total 480 / 480 Output Total 625 / 625 Balance -145 / -145 Laboratory Tests Past 24 Hrs 12/31/18 12/31/18 05:10 05:10 WBC 7.4 RBC 4.94 Hgb 13.7 Hct 46.7 MCV 94.5 H MCH 27.7 MCHC 29.3 L RDW 12.7 RDW Differential 43.0 Plt Count 219 MPV 11.7 Immature Gran % (Auto) 0.100 Neut % (Auto) 64.9 Lymph % (Auto) 15.9 L [place] % (Auto) 9.6 Eos % (Auto) 9.0 H Baso % (Auto) 0.5 Absolute Neuts (auto) 4.8 Absolute Lymphs (auto) 1.18 Total Counted Not Reportable Sodium 141 Potassium 3.9 Chloride 94 L Carbon Dioxide 38.0 H Anion Gap 9 BUN 9 Creatinine 0.57 L Estim Creat Clear Calc 73.00 Est GFR (MDRD) Af Amer 181 Est GFR (MDRD) Non-Af 150 BUN/Creatinine Ratio 15.7 Glucose 146 H Calcium 9.2 Total Bilirubin 0.90 AST 40 H ALT 42 Alkaline Phosphatase 58 Total Protein 6.7 Albumin 3.2 Globulin 3.5 Albumin/Globulin Ratio 0.9 POC Glucose 12/31/18 11:05 POC Glucose 257 H Assessment/Plan All Active Problems TIA (transient ischemic attack) (Acute) CVA (cerebral vascular accident) (Acute) The patient is a 68 year old M with PMH of HTN, DM type II, PAD, JULIUS, HLD, GERD, and Neuropathy. Patient admitted to [facility] you on 12/29/2018 for debility secondary to punctate foci of restricted diffusion post left CEA for greater of 3 hours of therapy daily with the goal of returning back home at or near her prior level functional dependence. Patient presented to [facility] ER on 12/22/18 for 2 different times of right arm numbness and weakness which resolved and patient was told by coworkers he has slurred speech on 12/22/2018, which symptoms resolved prior to ER. MRA of head showed atherosclerotic disease with multifocal segmental stenosis seen most CVA within left anterior cerebral, right vertebral and basilar arteries. MRA of the neck showed atherosclerotic disease most severe on the left with high-grade stenosis/near occlusion of the cervical portion of the left internal carotid artery. HgbA1c 8.8 % Patient was transferred to [facility]. Left CEA was performed on 12/23/2018 due to MRA and CTA showed severe stenosis in the proximal left ICA. Antiplatelet asa. Patient developed right- sided weakness postop. Patient developed HTN and hypercapnic respiratory acidosis requiring BiPAP for several days. Pulmonary was consulted and thought he had underlying obesity hypoventilation as well as known JULIUS. Patient was admitted to [facility] on 12/29/2018 developed a severe headache, CT obtained and showed 1.5 x 1.2 x 0.9 cm area of decreased density and loss of soto-white differentiation within the left occipital lobe suspicious for acute ischemia. Patient transferred back to [facility] on 12/30/18. MRI obtained are compatible with scattered areas of acute to early subacute infarction within the left frontoparietal lobes and posterior left temporal lobe the MRA of the neck is markedly degraded by motion rendering the study nondiagn ostic for focal narrowing. Plavix was added 75 mg due to perioperative infarcts clinically silent. Headache resolved and patient transferred back to [facility] on 12/30/2018. Patient lives with spouse in a split-level home is retired. Patient was independent prior with all ADLs, mobility and transfers and driving. Plan - PT for mobility - OT for ADLs - ST for dysphagia - Analgesics as needed - Punctate foci of restricted diffusion post left CEA on plavix and ASA, statin lipid profile - HTN on coreg, hctz, zestril - DM type II on amaryl accuchecks HgbA1c 8.8% - JULIUS on bipap - PAD on GBN - HLD on statin - GERD on protonix - Dysphagia on mechanical soft, nectar thickened liquids - Non-productive cough x 2 weeks CXR Mild thyromegaly. The lungs are clear. - Obesity BMI 33.5 - Hypercapnic respiratory acidosis resolved - GI/DVT prophylaxis protonix/Heparin knee high dorothy hose, SCDs - Fall precautions - Bowel protocol - Medical management per hospitalist-consult - F/U with Neurosurgeon, PCP, and Pulmonary
[2018-12-31 16:46] LABS: Bedside Glucose 225 mg/dL (70-110)
[2018-12-31 17:27] LABS: Cholesterol 146 mg/dL (200); High Density Lipoprotein 59 mg/dL; Triglycerides 97 mg/dL; Very Low Density Lipoprotein 19 mg/dL (5-40)
[2018-12-31] MEDS: Carvedilol 3.125 MG TABLET PO (17:54)
[2018-12-31 21:36] LABS: Bedside Glucose 237 mg/dL (70-110)
[2018-12-31] MEDS: Insulin Lispro 100 UNIT/ML INSULN.PEN SC (21:51)
--- NOTE | 2018-12-31 22:20 | NURSING ---
upon entering pt room, pt was awake and talking with staff. pt heart, lung and bowel sounds assessed at this time. heart regular, lungs clear with diminished bases and frequent, moist and productive cough on 2 liters nasal cannula, bowel sounds normoactive and pt stated he had 4 bowel movements today. After this nurse was getting medications started, SQ heparin given and 2 units of humalog for a blood sugar of 237, this nurse turned around to grab hs lipitor and neurotin off of COW. upon turning around, this nurse noted pt to have eyes closed. pt did not respond to name or touch at this time. this nurse called patient name again and began a sternal rub. pt unresponsive to sternal rub. vital signs obtained at 2224- BP- 156/72 with a HR of 92, resp at 18/min and o2 sat at 91% 2L NC. this nurse ran to grab RN to also assess pt. RN also sternal rubbed pt with small eyelid movement. RN lightly slapped pt cheeks to initiate arousal. after approx. 30 seconds, pt eyes opened and looked at PIZZAMAKER Mannie. pt stated hi mannie. pt speech noted to be slightly slurred, pt slow to respond to commands and slow verbalization. RN paged neurologist at [address] hong around 2239. neurologist stated similar episode happened during the day and to have hospitalist assess pt if RN was unsure of pt neuro status. RN paged hospitalist- dr. snyder at 2244. Staff remained with pt. staff noted pt to have increased slurring of speech and glazed look in eyes. stroke team called at 2249. vital signs taken- BP- 137/80, P- 91, R- 18, O2- 93% 2L NC. pt transferred to CT at 2254.
--- NOTE | 2018-12-31 22:58 | CT_ITS ---
STUDY: CT BRAIN WITHOUT CONTRAST REASON FOR EXAM: Male, 68 years old. Decreased consciousness. RADIATION DOSAGE (If Supplied By Facility): CTDIvol = ( 44.99 ) mGy, DLP = ( 866.41 ) mGycm TECHNIQUE: Transaxial CT imaging of the brain was performed without administration of intravenous contrast material. Individualized dose optimization techniques were used for this CT. COMPARISON: December 30, 2018 and December 22, 2018.. FINDINGS: Normal soft tissue structures. Normal calvarium. Normal size ventricles and extra-axial spaces for the patient's age. Again seen is a small focal area of low attenuation in the left occipitoparietal lobe which appears unchanged from previous day's study. This is not seen on the earlier CT. Normal white matter tracts of the cerebral hemispheres. Normal basal ganglia and thalami. Normal brainstem. Normal cerebellum. There is no intracranial hemorrhage. There are no findings of an acute ischemic infarction. There is minimal mucoperiosteal reaction within the ethmoid air cells. CT/Brain/Head without Contrast IMPRESSION: Stable low-attenuation focus in the left occipitoparietal region unchanged from the previous day's study. There is no acute findings or interval change. N.B. : The above information has been verbally conveyed by Chencho Dolan DO to Dr. Sean MD, on 12/31/2018 23:32:05 (ET). Electronically Signed: Chencho Dolan DO at 23:19 EDT Tel [phone], Service support ,
--- NOTE | 2018-12-31 23:01 | CT_ITS ---
STUDY: CTA NECK WITH CONTRAST REASON FOR EXAM: Male, 68 years old. Decreased consciousness. Flaccid right side. RADIATION DOSAGE (If Supplied By Facility): CTDIvol = ( 18.42 ) mGy, DLP = ( 781.65 ) mGycm TECHNIQUE: CT angiography with multi-detector data acquisition was performed from the aortic arch to the skull base following intravenous administration of 100ML IV Isovue 370. MIP images were reconstructed from the axial data set. Post-processing of the angiographic images was performed, with multiplanar reformation and 3D reconstruction. Individualized dose optimization techniques were used for this CT. COMPARISON: None. FINDINGS: AORTIC ARCH: Normal visualized aortic arch. Normal origins of the brachiocephalic, left common carotid, and left subclavian arteries. RIGHT CAROTID ARTERIES: Normal right common carotid artery (CCA). There is minimal calcified and noncalcified plaque in the carotid bulb without significant stenosis. Small calcified plaque at the origin of the right internal carotid (ICA) artery without a hemodynamically significant stenosis. Normal visualized cervical portion of the right internal carotid artery. Normal origin of the right external carotid artery (ECA). LEFT CAROTID ARTERIES: Normal left common carotid artery (CCA). Normal left common carotid bulb. Normal origin of the left internal carotid (ICA) artery without a hemodynamically significant stenosis. Normal visualized cervical portion of the left internal carotid artery. Normal origin of the left external carotid artery (ECA). VERTEBRAL ARTERIES: There is enhancement within the bilateral vertebral arteries with a slightly small right vertebral artery, and a dominant left vertebral artery. IMPRESSION: 1. Hemodynamically insignificant right carotid plaque by NASCET criteria. 2. Normal left carotid artery system. 3. Normal vertebral arteries. Electronically Signed: Chencho Dolan DO at 23:29 EDT Tel [phone], Service support , STUDY: CTA OF THE BRAIN REASON FOR EXAM: Male, 68 years old. Decreased level of consciousness. Flaccid right side. History of carotid endarterectomy. RADIATION DOSAGE (If Supplied By Facility): CTDIvol = ( 18.42 ) mGy, DLP = ( 781.65 ) mGycm TECHNIQUE: CT angiography was performed with a multi-detector CT scanner. Data acquisition was obtained from the skull base through the vertex following intravenous administration of 100ML IV Isovue 370. MIP images were reconstructed from the axial data set. Post-processing of the angiographic images was performed, with multiplanar reformation and 3D reconstruction. Individualized dose optimization techniques were used for this CT. COMPARISON: CT of the head, December 31, 2018. FINDINGS: Normal bilateral petrous carotid arteries. There is calcified plaque formation of the right cavernous carotid artery, without a cross-sectional luminal stenosis. There is calcified plaque formation of the left cavernous carotid artery, without a cross-sectional luminal stenosis. Normal right A1 segments of the anterior cerebral artery. Normal left A1 segments of the anterior cerebral artery. Normal intact anterior communicating artery (ACOM). Normal bilateral A2 segments of the anterior cerebral arteries. Normal right M1 and M2 segments of the middle cerebral arteries, with a normal M1 bifurcation. Normal left M1 and M2 segments of the middle cerebral arteries, with a normal M1 bifurcation. Normal right posterior communicating artery (PCOM). There is non-visualization of the left posterior communicating artery (PCOM). Normal bilateral vertebral arteries. Normal basilar artery with a normal basilar bifurcation. The visualized bilateral superior cerebellar (SCA) arteries are normal. Normal bilateral P1, P2 and visualized P3 segments of the posterior cerebral arteries. There is no demonstrated aneurysm of the [place] of [place]. There is no demonstrated abnormality of the visualized brain. CT/CTA Head W/WO Contrast IMPRESSION: Normal [place] of [place] without a demonstrated aneurysm or hemodynamically significant stenosis. Electronically Signed: Chencho Dolan DO at 23:34 EDT Tel [phone], Service support ,
--- NOTE | 2018-12-31 23:01 | CT_ITS ---
STUDY: CTA NECK WITH CONTRAST REASON FOR EXAM: Male, 68 years old. Decreased consciousness. Flaccid right side. RADIATION DOSAGE (If Supplied By Facility): CTDIvol = ( 18.42 ) mGy, DLP = ( 781.65 ) mGycm TECHNIQUE: CT angiography with multi-detector data acquisition was performed from the aortic arch to the skull base following intravenous administration of 100ML IV Isovue 370. MIP images were reconstructed from the axial data set. Post-processing of the angiographic images was performed, with multiplanar reformation and 3D reconstruction. Individualized dose optimization techniques were used for this CT. COMPARISON: None. FINDINGS: AORTIC ARCH: Normal visualized aortic arch. Normal origins of the brachiocephalic, left common carotid, and left subclavian arteries. RIGHT CAROTID ARTERIES: Normal right common carotid artery (CCA). There is minimal calcified and noncalcified plaque in the carotid bulb without significant stenosis. Small calcified plaque at the origin of the right internal carotid (ICA) artery without a hemodynamically significant stenosis. Normal visualized cervical portion of the right internal carotid artery. Normal origin of the right external carotid artery (ECA). LEFT CAROTID ARTERIES: Normal left common carotid artery (CCA). Normal left common carotid bulb. Normal origin of the left internal carotid (ICA) artery without a hemodynamically significant stenosis. Normal visualized cervical portion of the left internal carotid artery. Normal origin of the left external carotid artery (ECA). VERTEBRAL ARTERIES: There is enhancement within the bilateral vertebral arteries with a slightly small right vertebral artery, and a dominant left vertebral artery. IMPRESSION: 1. Hemodynamically insignificant right carotid plaque by NASCET criteria. 2. Normal left carotid artery system. 3. Normal vertebral arteries. Electronically Signed: Chencho Dolan DO at 23:29 EDT Tel [phone], Service support , STUDY: CTA OF THE BRAIN REASON FOR EXAM: Male, 68 years old. Decreased level of consciousness. Flaccid right side. History of carotid endarterectomy. RADIATION DOSAGE (If Supplied By Facility): CTDIvol = ( 18.42 ) mGy, DLP = ( 781.65 ) mGycm TECHNIQUE: CT angiography was performed with a multi-detector CT scanner. Data acquisition was obtained from the skull base through the vertex following intravenous administration of 100ML IV Isovue 370. MIP images were reconstructed from the axial data set. Post-processing of the angiographic images was performed, with multiplanar reformation and 3D reconstruction. Individualized dose optimization techniques were used for this CT. COMPARISON: CT of the head, December 31, 2018. FINDINGS: Normal bilateral petrous carotid arteries. There is calcified plaque formation of the right cavernous carotid artery, without a cross-sectional luminal stenosis. There is calcified plaque formation of the left cavernous carotid artery, without a cross-sectional luminal stenosis. Normal right A1 segments of the anterior cerebral artery. Normal left A1 segments of the anterior cerebral artery. Normal intact anterior communicating artery (ACOM). Normal bilateral A2 segments of the anterior cerebral arteries. Normal right M1 and M2 segments of the middle cerebral arteries, with a normal M1 bifurcation. Normal left M1 and M2 segments of the middle cerebral arteries, with a normal M1 bifurcation. Normal right posterior communicating artery (PCOM). There is non-visualization of the left posterior communicating artery (PCOM). Normal bilateral vertebral arteries. Normal basilar artery with a normal basilar bifurcation. The visualized bilateral superior cerebellar (SCA) arteries are normal. Normal bilateral P1, P2 and visualized P3 segments of the posterior cerebral arteries. There is no demonstrated aneurysm of the [place] of [place]. There is no demonstrated abnormality of the visualized brain. CT/CTA Neck W/WO Contrast IMPRESSION: Normal [place] of [place] without a demonstrated aneurysm or hemodynamically significant stenosis. Electronically Signed: Chencho Dolan DO at 23:34 EDT Tel [phone], Service support ,
--- NOTE | 2019-01-01 01:05 | NURSING ---
Documentation done at this time d/t computer availability in rehab unit. Information regarding last known well and previous assessments provided by patients nurse Madiha.
--- NOTE | 2019-01-01 01:16 | NURSING ---
Agree with ARM MAKER's note. Pt discharged at 2302 from rehab. notified of pt condition and that pt was now in CT, then would be going to ICU until arrangements made to transfer pt to tertiary hospital. Dr. Sam paged to notify MD of pt's transfer to ICU.
[2019-01-01 07:05] LABS: Bedside Glucose 185 mg/dL (70-110)
--- NOTE | 2019-01-01 10:41 | DS.PCM_ITS ---
Rehab Discharge Summary DATE OF ADMISSION: 12/30/18 DATE OF DISCHARGE: 12/31/18 - Rehab Diagnosis Debility secondary to stroke - Physical Exam Vital Signs Temp Pulse Resp BP Pulse Ox 96.6 F L 91 18 137/80 H 93 12/31/18 23:00 12/31/18 23:00 12/31/18 23:00 12/31/18 23:00 12/31/18 23:00 Oxygen Flow Rate (L/min) 2 Oxygen Delivery Method Nasal Cannula Weight: 106 kg Body Mass Index (BMI) 33.5 Finger Stick Blood Glucose 185 Intake and Output for Last 24 Hours 12/30/18 12/31/18 01/01/19 23:59 23:59 23:59 Intake Total 555 / 555 Output Total 625 / 625 Balance -70 / -70 Laboratory Tests Past 24 Hrs 12/31/18 05:10 Triglycerides 97 Cholesterol 146 LDL Cholesterol 68 VLDL Cholesterol 19 HDL Cholesterol 59 POC Glucose 12/31/18 12/31/18 12/31/18 23:06 21:33 16:40 POC Glucose 185 H 237 H 225 H 12/31/18 11:05 POC Glucose 257 H Discharge Diet: - - Patient is being transferred to ICU Discharge Activity: - - Patient being transferred to ICU Call your doctor if you observe: Fever of 101 or Higher, Coldness, Increased Pain, Numbness or Tingling, Change in Color, Inability to urinate, Inability to have a bowel movement, Using more than one pad per hour, Shortness of breath, Dizziness, Fainting spells, Swelling in the ankles, Chest pain, Prolonged hiccoughing, Increased palpitations (irregular heartbeat), Calf discomfort, Uncontrolled pain Home Medications: Medications to take at Discharge Aspirin [Aspirin, Baby] 81 mg PO DAILY@0800 12/22/18 Gabapentin [Neurontin] 300 mg PO TID 12/22/18 Glimepiride [Amaryl] 4 mg PO DAILY 12/22/18 Lisinopril [Zestril] 40 mg PO DAILY 12/22/18 Omeprazole 40 mg PO DAILY 12/22/18 Atorvastatin Calcium 40 mg PO QHS 12/29/18 Hydrochlorothiazide [Hctz] 25 mg PO DAILY 12/29/18 Metoprolol Tartrate 25 mg PO Q12H 12/29/18 Primary Care Physician: Devin Thompson MD [Primary Care Provider] - When: Patient being transferred to ICU and then with the plan to transfer to When: Patient needs to follow-up with neurology and vascular surgery. Rehab Course 68 year old M with PMH of HTN, HLD, DM, DM Neuropathy, PAD, JULIUS,GERD admitted to [facility] on 12/30/2018 with debility secondary to acute thrombo-embolic left MCA stroke s/p Left CEA on 12/23/18 at , for greater than 3 hours of therapy daily with the goal of returning back home at or near his prior level functional dependence. Patient presented to [facility] ED on 12/22/18 for recurrent episodes of right arm numbness and weakness which resolved and patient was told by coworkers he has slurred speech on 12/22/2018. 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 HgbA1c 8.8 % Patient was transferred to [facility]. S/P Left CEA on 12/23/2018. Post procedure stay was complicated by right-sided weakness, HTN and hypercapnic respiratory acidosis requiring BiPAP for several days. Patient was admitted initially admitted to [facility] on 12/29/2018 with debility s/p Left MCA stroke but developed a severe headache, CT obtained reported to show new area suspicious for left occipital infarct. Patient transferred back to [facility] on 12/29/18. MRI brain done at reported to show scattered areas of acute to early subacute infarction within the left frontoparietal lobes and posterior left temporal lobe which was thought to be secondary to incidental stroke post CEA, MRA neck showed patent left CEA vessel as documented by Dr. Anthony. Plavix was added 75 mg due to perioperative infarcts clinically silent. Headache resolved and patient transferred back to [facility] on 12/30/2018. In the rehab overnight on 12/31/2018 patient was noted to have an unresponsive episode, per documentation of the hospitalist patient was not interacting, was mumbling, was slurring his words and not following commands, a stat CT head and CTA head/neck was performed which was reported not to show anything acute. Patient was also given prophylactic Keppra 500 mg twice daily for seizure precautions given the recent history of left CEA. But there was no witnessed seizures. Hospitalist discussed the case with Dr. Anthony at and patient was accepted to , but in the interim until the bed is available at patient being transferred to ICU at [facility]. Meaningful Use Info Meaningful Use Diagnoses (Choose all that apply): None applicable
--- NOTE | 2019-01-01 10:47 | DS.PCM_ITS ---
Rehab Discharge Summary DATE OF ADMISSION: 12/30/18 DATE OF DISCHARGE: 12/31/18 - Rehab Diagnosis Debility secondary to stroke - Physical Exam Vital Signs Temp Pulse Resp BP Pulse Ox 96.6 F L 91 18 137/80 H 93 12/31/18 23:00 12/31/18 23:00 12/31/18 23:00 12/31/18 23:00 12/31/18 23:00 Oxygen Flow Rate (L/min) 2 Oxygen Delivery Method Nasal Cannula Weight: 106 kg Body Mass Index (BMI) 33.5 Finger Stick Blood Glucose 185 Intake and Output for Last 24 Hours 12/30/18 12/31/18 01/01/19 23:59 23:59 23:59 Intake Total 555 / 555 Output Total 625 / 625 Balance -70 / -70 Laboratory Tests Past 24 Hrs 12/31/18 05:10 Triglycerides 97 Cholesterol 146 LDL Cholesterol 68 VLDL Cholesterol 19 HDL Cholesterol 59 POC Glucose 12/31/18 12/31/18 12/31/18 23:06 21:33 16:40 POC Glucose 185 H 237 H 225 H 12/31/18 11:05 POC Glucose 257 H Discharge Diet: - - Patient is being transferred to ICU Discharge Activity: - - Patient being transferred to ICU Call your doctor if you observe: Fever of 101 or Higher, Coldness, Increased Pain, Numbness or Tingling, Change in Color, Inability to urinate, Inability to have a bowel movement, Using more than one pad per hour, Shortness of breath, Dizziness, Fainting spells, Swelling in the ankles, Chest pain, Prolonged hiccoughing, Increased palpitations (irregular heartbeat), Calf discomfort, Uncontrolled pain Home Medications: Medications to take at Discharge Aspirin [Aspirin, Baby] 81 mg PO DAILY@0800 12/22/18 Gabapentin [Neurontin] 300 mg PO TID 12/22/18 Glimepiride [Amaryl] 4 mg PO DAILY 12/22/18 Lisinopril [Zestril] 40 mg PO DAILY 12/22/18 Omeprazole 40 mg PO DAILY 12/22/18 Albuterol Inhaler [Ventolin Hfa (SP)] 1 puff INHALATION Q6H PRN PRN 12/29/18 Atorvastatin Calcium 40 mg PO QHS 12/29/18 Hydrochlorothiazide [Hctz] 25 mg PO DAILY 12/29/18 Metoprolol Tartrate 25 mg PO Q12H 12/29/18 Primary Care Physician: Devin Thompson MD [Primary Care Provider] - When: Patient being transferred to ICU and then with the plan to transfer to When: Patient needs to follow-up with neurology and vascular surgery. Rehab Course 68 year old M with PMH of HTN, HLD, DM, DM Neuropathy, PAD, JULIUS,GERD admitted to [facility] on 12/30/2018 with debility secondary to acute thrombo-embolic left MCA stroke s/p Left CEA on 12/23/18 at , for greater than 3 hours of therapy daily with the goal of returning back home at or near his prior level functional dependence. Patient presented to [facility] ED on 12/22/18 for recurrent episodes of right arm numbness and weakness which resolved and patient was told by coworkers he has slurred speech on 12/22/2018. 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 HgbA1c 8.8 % Patient was transferred to [facility]. S/P Left CEA on 12/23/2018. Post procedure stay was complicated by right-sided weakness, HTN and hypercapnic respiratory acidosis requiring BiPAP for several days. Patient was admitted initially admitted to [facility] on 12/29/2018 with debility s/p Left MCA stroke but developed a severe headache, CT obtained reported to show new area suspicious for left occipital infarct. Patient transferred back to [facility] on 12/29/18. MRI brain done at reported to show scattered areas of acute to early subacute infarction within the left frontoparietal lobes and posterior left temporal lobe which was thought to be secondary to incidental stroke post CEA, MRA neck showed patent left CEA vessel as documented by Dr. Anthony. Plavix was added 75 mg due to perioperative infarcts clinically silent. Headache resolved and patient transferred back to [facility] on 12/30/2018. In the rehab overnight on 12/31/2018 patient was noted to have an unresponsive episode, per documentation of the hospitalist patient was not interacting, was mumbling, was slurring his words and not following commands, a stat CT head and CTA head/neck was performed which was reported not to show anything acute. Patient was also given prophylactic Keppra 500 mg twice daily for seizure precautions given the recent history of left CEA. But there was no witnessed seizures. Hospitalist discussed the case with Dr. Anthony at and patient was accepted to , but in the interim until the bed is available at patient being transferred to ICU at [facility]. Meaningful Use Info Meaningful Use Diagnoses (Choose all that apply): None applicable
--- NOTE | 2019-01-03 10:30 | CASEMGMT ---
Insurance Notified insurance of d/c to [facility] on 12/31/18. Auth # [id number] TREVON Ricci
== END 2018-12-31 23:02 | disposition other institution (70) | DRG 57 ==
PROVIDERS: Internal Medicine; Nurse Practitioner Family; Admitting Provider Psychiatry & Neurology Neurology; Referring Provider Psychiatry & Neurology Neurology; Visit Provider Psychiatry & Neurology Neurology
DX: I69.351 Hemiplegia and hemiparesis following cerebral infarction affecting right dominant side (principal); I69.391 Dysphagia following cerebral infarction; R13.12 Dysphagia, oropharyngeal phase; E66.9 Obesity, unspecified; Z68.33 Body mass index [BMI] 33.0-33.9, adult; Z71.3 Dietary counseling and surveillance; E78.5 Hyperlipidemia, unspecified; K21.9 Gastro-esophageal reflux disease without esophagitis; E11.40 Type 2 diabetes mellitus with diabetic neuropathy, unspecified; I10 Essential (primary) hypertension; G47.33 Obstructive sleep apnea (adult) (pediatric); R41.82 Altered mental status, unspecified
CPT/HCPCS: 36415; 70450; 70496; 70498; 71046; 80053; 80061; 82962; 85025; 92610; 97163; 97166; 97802; Q9967; A4216

== ENCOUNTER 2018-12-31 23:22 | Inpatient (IN) | payer OTHER, MEDICARE, SELFPAY ==
[2018-12-30 23:44] VITALS: BMI 33.5
[2018-12-31 23:30] VITALS: BP 158/118; BP 173/79; PULSE 87; PULSE 90; PULSE 94; RESP 20; RESP 22; TEMP 35.9; TEMP 36.1; O2SAT 88; O2SAT 96; BMI 32.7
--- NOTE | 2018-12-31 23:30 | PCM.HP.STD ---
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 Diabetes mellitus complication status: with neurologic complications (3) CVA (cerebral vascular accident) Status: Chronic Qualifiers: CVA mechanism: unspecified Qualified Code(s): I63.9 - Cerebral infarction, unspecified (4) HLD (hyperlipidemia) Status: Chronic Qualifiers: Hyperlipidemia type: unspecified Qualified Code(s): E78.5 - Hyperlipidemia, unspecified (5) GERD (gastroesophageal reflux disease) Status: Chronic Qualifiers: Esophagitis presence: esophagitis presence not specified Qualified Code(s): K21.9 - Gastro-esophageal reflux disease without esophagitis (6) Neuropathy Status: Chronic (7) Obesity (BMI 30.0-34.9) Status: Chronic History of Present Illness Date of Admission: 12/31/18 Chief Complaint: Mental status decline, worsened hemiplegia The patient is a 68 y/o M w/ PMHx: PAD, Obesity, EtOH Abuse history, HTN, HLD, GERD, Neuropathy, Diabetes mellitus type II with recent transition from Acute Rehabilitation to CT to ICU pending transfer of 12/31/18 secondary to acute change in status with decreased interaction, slurred mumbling speech, slow response, inability to follow commands and suspicion for worsened R sided hemiplegia. Patient was recently evaluated initially 12/22/18 for TIA/CVA evaluation and during that admission had evaluation notable for acute Frontal and Parietal CVA w/ severe in the left anterior cerebral, right vertebral and basilar arteries and severe left high-grade stenosis/near occlusion of the left internal carotid with transfer to following where he underwent left CEA and stroke treatment/evaluation; however, his recovery was complicated by hypercapnic respiratory acidosis requiring BiPAP for several days with pulmonary consultation who felt that his underlying obesity with hypoventilation syndrome as well as JULIUS. Patient was transitioned 12/29/18 to Acute Rehabilitation facility following treatment and care but upon transition he was noted to have ongoing elevated BPs and headache with follow-up CT Head without contrast obtained with result noting near 1.5 x 1.2 x 0.9 cm area of decreased density and loss of soto-white differentiation within left occipital lobe suspicious for an acute ischemia. Patient was then discussed with Dr. Anthony, Neurologist whom had him during the recent admission and requested patient transfer to ED. MRI brain was obtained which noted findings compatible with scattered areas of now acute and early subacute infarction within the left frontal parietal lobes as well as posterior left temporal lobe and MRAs without acute findings. Patient was transferred back to the Rehabilitation Facility and per report had 12/31/18 AM episode of decreased responsiveness that resolved with Neurology evaluation at that time. 12/31/18 11 pm stroke call requested per patient RN as noted decreased responsiveness although awake, not interacting, mumbling, slurring words and not following commands. Patient was transitioned to CT for CT head, CTA head and neck which demonstrated no acute findings. Discussed case with Rehab physician/Neurologist who requested transfer to . Patient transfer arranged with Dr. Anthony accepting but given awaiting transfer patient transitioned to the ICU for ongoing care prior. Given seizure as possible etiology, keppra 500 mg IV initiated. transfer line called back and requested per Dr. Anthony direction patient transition to ED until inpatient bed obtained. Transport arranged. Past Medical History Past Medical History (Chronic Problems): Chronic Problems Hypertension (Chronic) Diabetes mellitus (Chronic) CVA (cerebral vascular accident) (Chronic) HLD (hyperlipidemia) (Chronic) GERD (gastroesophageal reflux disease) (Chronic) Neuropathy (Chronic) Obesity (BMI 30.0-34.9) (Chronic) Allergies codeine Allergy (Verified 12/22/18 10:55) Hives morphine Allergy (Verified 12/22/18 10:55) Hives Home Medications: Ambulatory Orders Medication Instructions Recorded Aspirin [Aspirin, Baby] 81 mg PO DAILY@0800 12/22/18 Gabapentin [Neurontin] 300 mg PO TID 12/22/18 Glimepiride [Amaryl] 4 mg PO DAILY 12/22/18 Lisinopril [Zestril] 40 mg PO DAILY 12/22/18 Omeprazole 40 mg PO DAILY 12/22/18 Albuterol Inhaler [Ventolin Hfa 1 puff INHALATION Q6H PRN PRN 12/29/18 (SP)] Atorvastatin Calcium 40 mg PO QHS 12/29/18 Hydrochlorothiazide [Hctz] 25 mg PO DAILY 12/29/18 Metoprolol Tartrate 25 mg PO Q12H 12/29/18 Surgical History: rotator cuff repair - left shoulder, total hip arthroplasty - right, total knee arthroplasty - left Psychiatric History: No pertinent psych hx Lives: Spouse/ Significant Other Smoking Status: Never smoker Tobacco Use: Non-smoker Alcohol: Occasional Drugs: None - *Family History Maternal History Items: - - No marked maternal family history of heart disease, diabetes or cancer. Paternal History Items: Cancer - lung Review of Systems Unable to obtain accurate/complete ROS d/t: Unable to give appropriate ROS secondary to altered mental status. VTE Information - Inpt Only VTE Present on Admission: No VTE Mechan Device Prophylaxis: SCD's VTE Pharm Prophylaxis ordered?: Yes Subjective: Seated upright in rehab bed, slow response, mumbled slurred words, not able to follow commands, flat affect. Objective: Physical Examination: General: awake, does not appear markedly alert, staring into space, mumbling and mildly slurred speech, not following commands, NAD. Skin: normal color, turgor, no icterus, cyanosis. HEENT: AT/NC, EOMI, PERRLA, dry MM, no carotid bruits or JVD noted. Lungs: CTA bilaterally, moderate effort, moderate decrease BL bases, no rales, ronchi or wheezing. Heart: Regular rate and rhythm; no gallop, rub audible. Abdomen: soft,obese, NTTP, ND, normal BS, no HSM. Extremities: no cyanosis, clubbing, or edema. Neurological: patient awake, not markedly alert, not able to answer orientation questions, cognitive function not baseline intact; pupils equally reactive to light and accomodation; cranial nerves difficult to assess as not following commands but appeared intact, starting straight, not following commands so difficult examination but R side worsened debility, not grasping with hand and not moving leg, but again not following commands, slurred and mumbling speech, unable to perform FTN or HTS, strength accordingly severely globally decreased. Psychiatric: affect appears flat, no acute evidence of depressive or anxiety feelings. - Physical Exam Body Mass Index (BMI) 33.5 Finger Stick Blood Glucose 260 Assessment/Plan All Active Problems TIA (transient ischemic attack) (Acute) The patient is a 68 y/o M w/ PMHx: PAD, Obesity, EtOH Abuse history, HTN, HLD, GERD, Neuropathy, Diabetes mellitus type II with recent transition from Acute Rehabilitation to CT to ICU pending transfer of 12/31/18 secondary to acute change in status with decreased interaction, slurred mumbling speech, slow response, inability to follow commands and suspicion for worsened R sided hemiplegia. (1) Recent Acute CVA Frontal and Parietal CVA and 12/29/18 Acute/Subacute Recurrent CVA with concern for Recurrent possible Acute CVA versus Seizure: CT head, CTA Head and Neck prior to transition to ICU without acute findings, continue close cardiac monitoring, head of bed parameters, aspiration, fall and seizure precautions, NPO status, initiate keppra 500 mg IV now, swallow evaluation prior to any medication intake, NPO until improved status assured, holding oral regimen, planned transition shortly to ED per discussion with Dr. Anthony pending inpatient bed at their facility. Discussed case also with the ED physician. Holding ASA, plavix, statin, BP, DM regimen given unsafe oral intake as noted until improved. (2) Recent Acute hypercapnic respiratory acidosis secondary to JULIUS, Hypoventilation Syndrome: Recent evaluation for acute CVA w/ L CEA performed and following recovery was complicated by hypercapnic respiratory acidosis requiring BiPAP for several days with pulmonary consultation who felt that his underlying obesity with hypoventilation syndrome as well as JULIUS responsible for his current presentation as well as possible obstructive lung disease. Continue home CPAP q HS. (3) Diabetes mellitus type II with neuropathy: Holding oral regimen, NPO currently, accu checks q 6 hours with ISS. (4) Hypertension: Holding oral regimen given acute presentation, unsafe oral intake until improved. (5) Hyperlipidemia: Holding oral statin regimen. (6) PAD: Patient previously on cilostazol which he had not taken since June but was previously on this regimen and had been following with vascular surgery but stopped since his surgeon moved to [place]. As noted had recently been maintained on ASA, plavix, high dose statin, BP regimen, DM regimen which are all being temporarily held given acute presentation. (7) GERD: Holding oral PPI. (8) DVT prophylaxis: SCDs, lovenox. Code Visit OBSV E&M: 04241 Observ/hosp same date L3
--- NOTE | 2018-12-31 23:33 | NURSING ---
2315 vitals 163/79 92 90% on 2lpm n/c 23 rr
--- NOTE | 2018-12-31 23:34 | NURSING ---
2300 vitals 137/80, 91, 92% 2lpm n/c, rr 20
--- NOTE | 2018-12-31 23:39 | DS.PCM_ITS ---
Discharge Date and Diagnosis Date of Admission: 12/30/18 Date of Discharge: 12/31/18 - Primary Discharge Diagnosis (1) Recent Acute CVA Frontal and Parietal CVA and 12/29/18 Acute/Subacute Recurrent CVA with concern for Recurrent possible Acute CVA versus Seizure (2) Recent Acute hypercapnic respiratory acidosis secondary to JULIUS, Hypoventilation Syndrome (3) Diabetes mellitus type II with neuropathy (4) Hypertension (5) Hyperlipidemia (6) PAD (7) GERD - Secondary Discharge Diagnosis Chronic Problems Hypertension (Chronic) Diabetes mellitus (Chronic) HLD (hyperlipidemia) (Chronic) GERD (gastroesophageal reflux disease) (Chronic) Neuropathy (Chronic) Obesity (BMI 30.0-34.9) (Chronic) Hospital Course and Treatment Discussed case with Dr. Estrada, Neurologist. Operations: None Procedures: None Summary of Care Provided: The patient is a 68 y/o M w/ PMHx: PAD, Obesity, EtOH Abuse history, HTN, HLD, GERD, Neuropathy, Diabetes mellitus type II with recent transition from Acute Rehabilitation to CT to ICU pending transfer of 12/31/18 secondary to acute change in status with decreased interaction, slurred mumbling speech, slow response, inability to follow commands and suspicion for worsened R sided hemiplegia. Patient was recently evaluated initially 12/22/18 for TIA/CVA evaluation and during that admission had evaluation notable for acute Frontal and Parietal CVA w/ severe in the left anterior cerebral, right vertebral and basilar arteries and severe left high-grade stenosis/near occlusion of the left internal carotid with transfer to following where he underwent left CEA and stroke treatment/evaluation; however, his recovery was complicated by hypercapnic respiratory acidosis requiring BiPAP for several days with pulmonary consultation who felt that his underlying obesity with hypoventilation syndrome as well as JULIUS. Patient was transitioned 12/29/18 to Acute Rehabilitation facility following treatment and care but upon transition he was noted to have ongoing elevated BPs and headache with follow-up CT Head without contrast obtained with result noting near 1.5 x 1.2 x 0.9 cm area of decreased density and loss of gra y-white differentiation within left occipital lobe suspicious for an acute ischemia. Patient was then discussed with Dr. Anthony, Neurologist whom had him during the recent admission and requested patient transfer to ED. MRI brain was obtained which noted findings compatible with scattered areas of now acute and early subacute infarction within the left frontal parietal lobes as well as posterior left temporal lobe and MRAs without acute findings. Patient was transferred back to the Rehabilitation Facility and per report had 12/31/18 AM episode of decreased responsiveness that resolved with Neurology evaluation at that time. 12/31/18 11 pm stroke call requested per patient RN as noted decreased responsiveness although awake, not interacting, mumbling, slurring words and not following commands. Patient was transitioned to CT for CT head, CTA head and neck which demonstrated no acute findings. Discussed case with Rehab physician/Neurologist who requested transfer to . Patient transfer arranged with Dr. Anthony accepting but given awaiting transfer patient transitioned to the ICU for ongoing care prior. Given seizure as possible etiology, keppra 500 mg IV initiated. transfer line called back and requested per Dr. Anthony direction patient transition to ED until inpatient bed obtained. Transport arranged. - Physical Exam Vital Signs Temp Pulse Resp BP Pulse Ox 96.6 F L 87 22 H 173/79 H 88 12/31/18 23:30 12/31/18 23:30 12/31/18 23:30 12/31/18 23:30 12/31/18 23:30 Oxygen Flow Rate (L/min) 2 Oxygen Delivery Method Nasal Cannula Body Mass Index (BMI) 33.5 Finger Stick Blood Glucose 260 Home Medications: Medications to take at Discharge Aspirin [Aspirin, Baby] 81 mg PO DAILY@0800 12/22/18 Gabapentin [Neurontin] 300 mg PO TID 12/22/18 Glimepiride [Amaryl] 4 mg PO DAILY 12/22/18 Lisinopril [Zestril] 40 mg PO DAILY 12/22/18 Omeprazole 40 mg PO DAILY 12/22/18 Albuterol Inhaler [Ventolin Hfa (SP)] 1 puff INHALATION Q6H PRN PRN 12/29/18 Atorvastatin Calcium 40 mg PO QHS 12/29/18 Hydrochlorothiazide [Hctz] 25 mg PO DAILY 12/29/18 Metoprolol Tartrate 25 mg PO Q12H 12/29/18 Primary Care Physician: Devin Thompson MD [Primary Care Provider] - Disposition: Acute care Hospital Minutes spent on discharge:: 45 Patient Condition:: Stable Medical Necessity - Tobacco Use Smoking Status: Never smoker Meaningful Use Info Meaningful Use Diagnoses (Choose all that apply): None applicable Code Visit OBSV E&M: 56835 Observ/hosp same date L3
[2018-12-31 23:45] VITALS: BP 165/75; PULSE 85; RESP 20; O2SAT 96
[2019-01-01] VITALS: BP 187/87; PULSE 91; RESP 20; O2SAT 96
--- NOTE | 2019-01-01 00:08 | NURSING ---
Stroke Alert documentation: 2252 stroke alert called by rehab unit, last known at 2149. When this RN arrived at 2257 stroke team was in progress. NIHSS noted to be 9 at 2300 with deficits including : LOC - 1 correct question Right Arm drift Right leg no effort against gravity Limb ataxia in 1 limb Mild to moderate sensory loss Mild to moderate dysarthria total NIHSS score: 9 BG noted to be 185 at 2306. Repeat NIHSS at 2315, 2330 showed no changes from previous assessment. Decision made by Dr. Eller to transfer to ICU to await transfer to ED.
[2019-01-01 00:15] VITALS: BP 159/75; PULSE 81; RESP 20; O2SAT 97
[2019-01-01] MEDS: 0.9% Normal Saline 1,000 ML 100 ML IV (00:24)
[2019-01-01 00:30] VITALS: BP 159/75; PULSE 81; RESP 23; O2SAT 97
[2019-01-01 00:36] LABS: Bedside Glucose 179 mg/dL (70-110)
--- NOTE | 2019-01-01 00:50 | NURSING ---
Addendum entered by Maurice Gonzalez 01/01/19 01:24: CPAP, phone quantitative associate also with patient. After discharge Shoes and Home meds were brought over from previous room. Family notified. Original Note: Valuables went with pt during transport Glasses, cell phone, shorts, shirt.
[2019-01-01 01:04] LABS: Absolute Lymphocyte Count 1.86 X10^3/ul (0.83-4.51); Absolute Neutrophil Count 3.9 X10^3/uL (2.0-7.7); Basophil# 0.05 X10^3/uL; Basophil% 0.7 % (0-1); Eosinophil# 0.68 X10^3/uL; Eosinophils% 9.1 % (0-5); Hematocrit 45.8 % (40-54); Hemoglobin 14.1 g/dl (13.0-16.5); Lymphocyte # 1.86 X10^3/ul (4.0); Lymphocyte % 24.9 % (19-41); Mean Corp Hgb Conc 30.8 g/gl (32-36); Mean Corpuscular Hgb 29.1 pg (27.0-32.0); Mean Corpuscular Volume 94.4 fL (80-94); Mean Platelet Vol. 11.8 fl (6.2-12.0); Monocyte# 0.92 X10^3/uL; Monocyte% 12.3 % (0-10); Neutrophil # 3.91 X10^3/uL (2.7-7.7); Neutrophil % 52.5 % (47-70); Platelet Count 225 K/mm3 (150-450); RBC Distribution Width CV 12.8 % (11.6-14.6); RBC Distribution Width SD 42.8 fl (35.1-43.9); Red Blood Count 4.85 M/mm3 (4.6-6.2); White Blood Count 7.5 K/mm3 (4.4-11.0)
[2019-01-01 01:05] LABS: POSITIVE COUNT NO; POSITIVE DIFFERENTIAL NO; POSITIVE MORPHOLOGY NO
[2019-01-01 01:08] LABS: Prothrombin Time (Protime)PT. 12.6 SECONDS (11.7-14.9)
[2019-01-01 01:13] LABS: Anion Gap 2 (5-15); BUN 16 mg/dL (7-18); BUN/Creat Ratio 21.5 RATIO (10-20); Calcium,Total 9.5 mg/dL (8.5-10.1); Chloride 94 mmol/L (98-107); Creatinine, Serum 0.74 mg/dL (0.70-1.30); EST Glomerular Filtration Rate 111 mL/min (>60); Est Glom Filt Rate - Afr Amer 134 mL/min (>60); Glucose 181 mg/dL (74-106); Magnesium 1.3 mg/dL (1.6-2.6); Potassium 3.3 mmol/L (3.5-5.1); Sodium Level 138 mmol/L (136-145)
== END 2019-01-01 00:45 | disposition short-term general hospital (02) | DRG 57 ==
PROVIDERS: Admitting Provider Family Medicine; Visit Provider Family Medicine
DX: I69.351 Hemiplegia and hemiparesis following cerebral infarction affecting right dominant side (principal); E87.2 Acidosis; R56.9 Unspecified convulsions; G47.33 Obstructive sleep apnea (adult) (pediatric); E66.9 Obesity, unspecified; E11.40 Type 2 diabetes mellitus with diabetic neuropathy, unspecified; I10 Essential (primary) hypertension; E78.5 Hyperlipidemia, unspecified; I73.9 Peripheral vascular disease, unspecified; K21.9 Gastro-esophageal reflux disease without esophagitis; Z68.33 Body mass index [BMI] 33.0-33.9, adult
CPT/HCPCS: 80048; 82962; 83735; 84100; 85025; 85610; 85730; J7030

== ENCOUNTER 2019-01-05 20:36 | Inpatient (IN) | payer OTHER, MEDICARE, SELFPAY ==
[2018-12-31 23:30] VITALS: BMI 32.7
[2019-01-05 20:53] VITALS: BP 159/80; PULSE 75; RESP 18; TEMP 36.6; O2SAT 98; BMI 33.7
--- NOTE | 2019-01-05 21:26 | PCM.CONS.GEN ---
Problem List (1) Diabetes mellitus Status: Chronic (2) CVA (cerebral vascular accident) Status: Chronic Qualifiers: Reason for Consult Date of Consultation: 01/05/19 Reason for Consultation: medical management. History of Present Illness: The patient is a 68 year old M with a significant history of hypertension; diabetes; who had a CVA on December 22, 2018 presenting for rehab. For his stroke patient was initially admitted to the hospital but later transferred to at [place]. He was again admitted to the hospital because of his seizure he was again transferred to [facility]. Patient still reports some weakness in his right upper extremity. He had speech changes with his stroke but the speech changes has resolved. Patient reports inability to stand because of the stroke. Importantly he is unable to raise his right leg; but this he attributes to a previous right hip surgery. Patient complains of a cough that has been going on for about 3 weeks. Past Medical History Past Medical History (Chronic Problems): Chronic Problems Hypertension (Chronic) Diabetes mellitus (Chronic) CVA (cerebral vascular accident) (Chronic) HLD (hyperlipidemia) (Chronic) GERD (gastroesophageal reflux disease) (Chronic) Neuropathy (Chronic) Obesity (BMI 30.0-34.9) (Chronic) Allergies codeine Allergy (Verified 12/22/18 10:55) Hives morphine Allergy (Verified 12/22/18 10:55) Hives Home Medications: Ambulatory Orders Medication Instructions Recorded Aspirin [Aspirin, Baby] 81 mg PO DAILY@0800 12/22/18 Gabapentin [Neurontin] 300 mg PO TID 12/22/18 Glimepiride [Amaryl] 4 mg PO DAILY 12/22/18 Lisinopril [Zestril] 40 mg PO DAILY 12/22/18 Omeprazole 40 mg PO DAILY 12/22/18 Atorvastatin Calcium 40 mg PO QHS 12/29/18 Hydrochlorothiazide [Hctz] 25 mg PO DAILY 12/29/18 Metoprolol Tartrate 25 mg PO Q12H 12/29/18 Surgical History: rotator cuff repair - left shoulder, total hip arthroplasty - right, total knee arthroplasty - left Psychiatric History: No pertinent psych hx Lives: Spouse/ Significant Other Smoking Status: Never smoker Alcohol: Occasional - *Family History Maternal History Items: - - No marked maternal family history of heart disease, diabetes or cancer. Paternal History Items: Cancer - lung Review of Systems Constitutional: Denies: Chills, Fever, Weight Change HEENT: Denies: Head Aches, Sinus Congestion, Sinus Drainage Cardiovascular: Denies: Chest Pain, Palpitations Respiratory: Reports: Cough - Dry. Denies: Shortness of breath at rest, Sputum production Gastrointestinal: Denies: Abdominal Pain, Nausea, Vomiting Genitourinary: Denies: Dysuria Musculoskeletal: Denies: Joint Pain, Joint Tenderness Skin: Denies: Rash, Wounds Neurological: Reports: Focal weakness - Right upper extremity; right lower extremity.. Denies: Numbness, Tingling Psychiatric: Denies: Anxiety, Depression, Homicidal Ideations, Suicidal Ideations Hematologic/ Lymphatic: Denies: Easy Bruising, Easy Bleeding - Physical Exam General: Alert, Oriented x3, Cooperative HEENT: Atraumatic, PERRLA, EOMI, Normocephalic Neck: Supple, No JVD, Negative Carotid Bruits Lungs: Clear to auscultation, Normal air movement Cardiovascular: Regular rate, No murmurs Abdomen: Bowel Sounds Present, Soft, Non Tender Extremities: No edema, Capillary Refill Less than 3 Seconds Skin: No rashes, No breakdown Musculoskeletal: No Tenderness to Palpation of Joints or Extremities Neurological: Cranial nerves II-XII grossly intact, - - Limited range of motion of right lower extremity. Could raise all other extremities. Strength in right upper and right lower extremity 4 out of 5. Strength in left upper and left lower extremity 5 out of 5. [id number] test normal. Psych/Mental Status: Normal Affect, Appropriate Weight: 106.5 kg Body Mass Index (BMI) 33.7 Finger Stick Blood Glucose 260 Intake and Output for Last 24 Hours 01/03/19 01/04/19 01/05/19 23:59 23:59 23:59 Output Total 300 / 300 Balance -300 / -300 Assessment/Plan All Active Problems TIA (transient ischemic attack) (Acute) The patient is a 68 year old M with a significant history of hypertension; diabetes; who had a CVA on December 22, 2018 presenting for rehab after CVA R CVA Primary service to follow. Patient on aspirin and Plavix. Anticipate PT and OT at rehab. Hypertension On presentation his blood pressure was within goal. Hydrochlorthiazide; lisinopril; and metoprolol continued Trend blood pressure and adjust blood pressure medication Check BMP Seizures Keppra continued Acute Bronchitis Mucinex ordered. Diabetes mellitus On presentation his blood glucose was not within goal Glimepiride continued Accu-Chek QA CHS and 2 AM. Correction scale insulin ordered. DVT prophylaxis On Subcutaneous Lovenox . Code Visit Inpatient E&M: 94953 Init Hosp L3
[2019-01-05 21:31] LABS: Bedside Glucose 313 mg/dL (70-110)
[2019-01-05 22:00] VITALS: BP 159/80; PULSE 75; PULSE 94; RESP 18; TEMP 36.6; O2SAT 98; BMI 33.7
[2019-01-05] MEDS: guaiFENesin 1,200 MG Tablet 1200 MG PO (22:51)
[2019-01-05] MEDS: Gabapentin 300 MG Capsule PO (22:51)
[2019-01-05 22:52] VITALS: PULSE 75
[2019-01-05] MEDS: Atorvastatin Calcium 40 MG Tablet PO (22:52)
[2019-01-05] MEDS: Insulin Lispro 100 UNIT/ML INSULN.PEN SQ (22:52)
[2019-01-05] MEDS: levETIRAcetam 500 MG Tablet PO (22:52)
[2019-01-05] MEDS: Metoprolol Tartrate 25 MG Tablet PO (22:52)
[2019-01-05 23:14] VITALS: BMI 33.7
[2019-01-05 23:35] VITALS: O2SAT 87
[2019-01-05 23:42] VITALS: O2SAT 96
[2019-01-06] VITALS (7 sets, daily range): BP systolic 114–136; BP diastolic 64–68; PULSE 63–89; RESP 16–20; TEMP 36.7–36.8; O2SAT 89–97; BMI 33.7
[2019-01-06 02:16] LABS: Bedside Glucose 290 mg/dL (70-110)
[2019-01-06] MEDS: Insulin Lispro 100 UNIT/ML INSULN.PEN SQ ×5 (02:19→21:09)
--- NOTE | 2019-01-06 02:23 | NURSING ---
Hospitalist saw pt. pt assessment complete.
[2019-01-06 05:43] LABS: Hematocrit 44.4 % (40-54); Hemoglobin 13.7 g/dl (13.0-16.5); Mean Corp Hgb Conc 30.9 g/gl (32-36); Mean Corpuscular Hgb 29.5 pg (27.0-32.0); Mean Corpuscular Volume 95.5 fL (80-94); Mean Platelet Vol. 11.7 fl (6.2-12.0); Platelet Count 221 K/mm3 (150-450); RBC Distribution Width CV 12.5 % (11.6-14.6); RBC Distribution Width SD 42.4 fl (35.1-43.9); Red Blood Count 4.65 M/mm3 (4.6-6.2); White Blood Count 7.5 K/mm3 (4.4-11.0)
[2019-01-06 06:05] LABS: Scan Indicated on CBC? Y/N NO
[2019-01-06 06:08] LABS: Anion Gap 6 (5-15); BUN 19 mg/dL (7-18); BUN/Creat Ratio 23.4 RATIO (10-20); Calcium,Total 9.3 mg/dL (8.5-10.1); Chloride 96 mmol/L (98-107); Creatinine, Serum 0.81 mg/dL (0.70-1.30); EST Glomerular Filtration Rate 100 mL/min (>60); Est Glom Filt Rate - Afr Amer 121 mL/min (>60); Estimated Creatinine Clearance 90.12 ml/min; Glucose 240 mg/dL (74-106); Potassium 3.5 mmol/L (3.5-5.1); Sodium Level 143 mmol/L (136-145)
[2019-01-06 06:16] LABS: Bedside Glucose 238 mg/dL (70-110)
[2019-01-06] MEDS: Gabapentin 300 MG Capsule PO ×3 (06:20→21:08)
[2019-01-06] MEDS: Enoxaparin 40 MG/0.4 ML Syringe SC (08:23)
[2019-01-06] MEDS: Pantoprazole Sodium 40 MG Tablet PO (08:23)
[2019-01-06] MEDS: Metoprolol Tartrate 25 MG Tablet PO ×2 (08:23→21:08)
[2019-01-06] MEDS: Lisinopril 40 MG Tablet PO (08:23)
[2019-01-06] MEDS: Clopidogrel Bisulfate 75 MG Tablet PO (08:23)
[2019-01-06] MEDS: Glimepiride 4 MG Tablet PO ×2 (08:24→17:30)
[2019-01-06] MEDS: guaiFENesin 1,200 MG Tablet 1200 MG PO (08:24)
[2019-01-06] MEDS: levETIRAcetam 500 MG Tablet PO ×2 (08:24→21:15)
[2019-01-06] MEDS: Aspirin 81 MG TAB.CHEW PO (08:24)
[2019-01-06] MEDS: hydroCHLOROthiazide 25 MG Tablet PO (08:24)
--- NOTE | 2019-01-06 10:32 | HP.PCM_ITS ---
History of Present Illness Date of Admission: 01/06/19 Chief Complaint: Right sided weakness and seizure, debility Mr. Leon is a 68-year-old right-handed white male who initially underwent a left carotid endarterectomy at [facility] and suffered a left MCA distribution stroke. He then was admitted to rehab but had mental status changes and was transferred back to ultimately he was diagnosed with seizures and was placed on Keppra. He is now doing well, and presents back to the rehab unit again for further rehabilitation in order to improve his functional status of that he can return home. He does have multiple steps to manipulate at home he lives at home with his . Past Medical History Past Medical History (Chronic Problems): Chronic Problems Hypertension (Chronic) Diabetes mellitus (Chronic) CVA (cerebral vascular accident) (Chronic) HLD (hyperlipidemia) (Chronic) GERD (gastroesophageal reflux disease) (Chronic) Neuropathy (Chronic) Obesity (BMI 30.0-34.9) (Chronic) Allergies codeine Allergy (Verified 12/22/18 10:55) Hives morphine Allergy (Verified 12/22/18 10:55) Hives Home Medications: Ambulatory Orders Medication Instructions Recorded Aspirin [Aspirin, Baby] 81 mg PO DAILY@0800 12/22/18 Gabapentin [Neurontin] 300 mg PO TID 12/22/18 Glimepiride [Amaryl] 4 mg PO DAILY 12/22/18 Lisinopril [Zestril] 40 mg PO DAILY 12/22/18 Omeprazole 40 mg PO DAILY 12/22/18 Atorvastatin Calcium 40 mg PO QHS 12/29/18 Hydrochlorothiazide [Hctz] 25 mg PO DAILY 12/29/18 Metoprolol Tartrate 25 mg PO Q12H 12/29/18 Surgical History: rotator cuff repair - left shoulder, total hip arthroplasty - right, total knee arthroplasty - left Psychiatric History: No pertinent psych hx Lives: Spouse/ Significant Other Smoking Status: Never smoker Tobacco Use: Non-smoker Alcohol: Occasional - *Family History Maternal History Items: - - No marked maternal family history of heart disease, diabetes or cancer. Paternal History Items: Cancer - lung Review of Systems Constitutional: Denies: Chills, Fever, Weight Change HEENT: Denies: Head Aches, Sinus Congestion, Sinus Drainage Cardiovascular: Denies: Chest Pain, Palpitations Respiratory: Reports: Cough Gastrointestinal: Denies: Abdominal Pain, Nausea, Vomiting Genitourinary: Denies: Dysuria Musculoskeletal: Denies: Joint Pain, Joint Tenderness Skin: Denies: Rash, Wounds Neurological: Reports: Balance problems, Focal weakness Psychiatric: Denies: Anxiety, Depression, Homicidal Ideations, Suicidal Id eations Hematologic/ Lymphatic: Denies: Easy Bruising, Easy Bleeding VTE Information - Inpt Only VTE Present on Admission: Yes - Physical Exam General: Alert, Oriented x3, Cooperative HEENT: Atraumatic, PERRLA, EOMI Lungs: Clear to auscultation Cardiovascular: Regular rate Abdomen: Bowel Sounds Present Neurological: Cranial nerves II-XII grossly intact, - - Mild drift of the right upper and right lower extremity with intact sensation. Vital Signs Temp Pulse Resp BP Pulse Ox 36.7 C 81 16 114/64 97 01/06/19 09:41 01/06/19 09:41 01/06/19 09:41 01/06/19 09:41 01/06/19 09:41 Oxygen Flow Rate (L/min) 5 Oxygen Delivery Method Room Air Weight: 106.5 kg Body Mass Index (BMI) 33.7 Finger Stick Blood Glucose 260 Intake and Output for Last 24 Hours 01/04/19 01/05/19 01/06/19 23:59 23:59 23:59 Intake Total 240 / 240 Output Total 300 / 300 550 / 550 Balance -300 / -300 -310 / -310 Laboratory Tests Past 24 Hrs 01/06/19 01/06/19 05:30 05:30 WBC 7.5 RBC 4.65 Hgb 13.7 Hct 44.4 MCV 95.5 H MCH 29.5 MCHC 30.9 L RDW 12.5 RDW Differential 42.4 Plt Count 221 MPV 11.7 Sodium 143 Potassium 3.5 Chloride 96 L Carbon Dioxide 41.0 H Anion Gap 6 BUN 19 H Creatinine 0.81 Estim Creat Clear Calc 90.12 Est GFR (MDRD) Af Amer 121 Est GFR (MDRD) Non-Af 100 BUN/Creatinine Ratio 23.4 H Glucose 240 H Calcium 9.3 POC Glucose 01/06/19 01/06/19 01/05/19 06:13 02:09 21:26 POC Glucose 238 H 290 H 313 H Current Medications Generic Name Dose Route Start Last Admin Trade Name Freq PRN Reason Stop Dose Admin Acetaminophen 650 mg 01/05/19 20:57 Tylenol PO Q4H PRN PRN Mild Pain (0-3/10)/Headache Albuterol Sulfate 2.5 mg 01/05/19 21:34 Ventolin Aerosols INHALATION Q6H PRN PRN COUGH Aspirin 81 mg 01/06/19 08:00 01/06/19 08:24 Aspirin, Baby PO 81 mg DAILY@0800 GRETEL Administration Atorvastatin Calcium 40 mg 01/05/19 22:00 01/05/19 22:52 Lipitor PO 40 mg QHS GRETEL Administration Bisacodyl 10 mg 01/05/19 20:57 Dulcolax RECTAL .PRN X 1 PRN Constipation Clopidogrel Bisulfate 75 mg 01/06/19 10:00 01/06/19 08:23 Plavix PO 75 mg DAILY GRETEL Administration Dextrose 0 gm 01/05/19 21:30 D50w Syringe IV X1 PRN Hypoglycemia Protocol Enoxaparin Sodium 40 mg 01/06/19 10:00 01/06/19 08:23 Lovenox SC 40 mg DAILY GRETEL Administration Gabapentin 300 mg 01/05/19 22:00 01/06/19 06:20 Neurontin PO 300 mg TID GRETEL Administration Glimepiride 4 mg 01/06/19 08:00 01/06/19 08:24 Amaryl PO 4 mg BIDCM GRETEL Administration Glucagon 1 mg 01/05/19 21:30 IM .X1 PRN Hypoglycemia Guaifenesin 1,200 mg 01/05/19 22:00 01/06/19 08:24 Mucinex PO 1,200 mg BID GRETEL Administration Hydrochlorothiazide 25 mg 01/06/19 10:00 01/06/19 08:24 Hctz PO 25 mg DAILY GRETEL Administration Insulin Human Lispro 0 unit 01/05/19 22:00 01/06/19 06:25 Humalog Kwikpen (Bkc) SQ 3 units ACHS & 3AM GRETEL Administration Protocol Levetiracetam 500 mg 01/05/19 22:00 01/06/19 08:24 Keppra Tablet PO 500 mg BID GRETEL Administration Lisinopril 40 mg 01/06/19 10:00 01/06/19 08:23 Zestril PO 40 mg DAILY GRETEL Administration Magnesium Hydroxide 30 ml 01/05/19 20:57 Milk Of Magnesia PO .PRN X 1 PRN Constipation Metoprolol Tartrate 25 mg 01/05/19 22:00 01/06/19 08:23 Lopressor (Beta Janine) PO 25 mg Q12 GRETEL Administration Pantoprazole Sodium 40 mg 01/06/19 10:00 01/06/19 08:23 Protonix PO 40 mg DAILY GRETEL Administration Senna/Docusate Sodium 2 tablet 01/05/19 22:00 01/06/19 08:24 Senokot-S, Chelsi-Colace PO Not Given BID [facility] Assessment/Plan All Active Problems TIA (transient ischemic attack) (Acute) Debility status post complicated hospitalization including initially left carotid endarterectomy followed by left MCA distribution stroke and complex partial seizures now on Keppra. Stabilized and improved. Now admitted to the rehab unit with a goal of restoring his previous level of functional independence. Plan: Physical therapy for gait and balance Occupational Therapy for ADLs Speech therapy Bowel protocol DVT prophylaxis: Lovenox Stroke prophylaxis: Aspirin, Plavix, blood pressure control and statin therapy Seizures: Controlled on Keppra PRN analgesics
--- NOTE | 2019-01-06 10:33 | PCM.RU.PYE ---
Admission Information Status Changes from Prescreening?: No changes Identified Actual Problem List:: Falls, Cognitve Impr/Memory Loss, Alteration in Sleep, Alteration in Nutrition, Mobility Impaired, Self Care Deficit, Diabetes, Hyperglycemia, BP, Hypertension, Ineffect.D/C Plan r/t Psy Potential Problem List:: DVT, Bleeding, Infection, UTI, Aspiration, Falls, Skin Integrity, Depression Risk of Complications DVT: LMWH, MYRIAM Hose, Sequential Compression Device Bleeding: Monitor Lab Values, Nursing to Teach Precautions for anti-coagulation therapy., Wound, if applicable, to be assessed every shift., Stroke patients assessed for lethargy or change in status. Infection: Clinical Staff to Monitor for S/S of infection:, S/S of infection include fever, redness, warmth, etc. Urinary Tract Infection: Monitor for frequency, burning, discomfort, or incontinence., Nursing will obtain urine sample for urinalysis and C&S when ordered. Aspiration: Clinical staff will monitor for coughing, drooling, congestion., Speech will evaluate swallowing and dsyphasia., Nursing will monitor patient swallowing during meals. Falls: Patient will be evaluated for Fall Precautions, Patient will be placed on Fall Precautions as indicated per protocol. Skin Breakdown: Nursing will assess skin daily using assessment tool., Nursing will place on Skin Breakdown Precautions as indicated. Pain: Clinical staff will assess patient's pain level per protocol., Medications will be given, if needed, and the pain level reassessed., Other methods: Massage, distraction, decrease stimulus, etc. used PRN. Plan of Care Patient requires physician specializing in physical medicine and rehab oversight to provide close medical supervision of rehab issues including: Pain Management, Sleep Problems, Bowel and Bladder, Medical and co-morbidity Management, DVT prophylaxis, Rehabilitation Leadership, Coordination of treatment team Patient needs Physical Therapy: For a minimum of 1 hour, At least 5 out of 7 days Patient needs Physical Therapy to improve:: Mobility, Mobility, Mobility, Strengthening, Transfers, Stretching, ROM, Endurance, Stairs, Gait, Balance Patient needs Occupational Therapy: For a minimum of 1 hour, At least 5 out of 7 days Patient needs Occupational Therapy to improve ADL's incl.: Eating, Grooming, Bathing, Dressing, Toileting, Toilet transfers, Community Reintegration, Higher functioning activities, Household tasks, Adaptive Equipment, Splinting, Other activities as determined Patient requires speech therapy: For a minimum of 1 hour, At least 5 out of 7 days Patient requires speech therapy for: Swallowing, Cognition, Language Skills, Compensatory Strategies Patient requires 24/ Rehabilitation Nursing for: Pain Issues, Identifying and preventing risk factors, Monitoring and reporting current medical conditions, Assisting with ambulation, transfer, and all ADL's, Teaching patients about disease process and medications, Family teaching, Providing safe environment, Bowel and Bladder Issues, Skin integrity, Medication Management Patient needs Director Of Consumer Marketing/ Case Management for: Discharge Planning, Arranging Home Equipment or Services, Family Interventions Patient needs Dietary and Nutrition Services for: Adequate Nutrition, Nutritional Supplements, Nutritional Education Goals Patient will remain: free from falls, or injury at time of discharge. Patient will perform bed mobility at: MOD I level of assist. Patient will complete transfers from bed to chair at: MOD I level of assist. Patient will ambulate: 100 feet, with MOD I assist, with LRD Patient will complete upper body dressing at: MOD I level of assist. Patient will complete lower body dressing at: MOD I level of assist. Patient will complete toileting at: MOD I level of assist. Patient will perform bathing at: MOD I level of assist. Patient will complete grooming at: MOD I level of assist. Patient will complete home management skills at: MOD I level of assist. Patient will achieve: 12 stairs, at MOD I assist Patient will have pain level of: of 3 or less Patient's skin will: remain intact, free from infection. Patient will receive: adequate nutrition. Discharge Planning Pt Prognosis for Sig. Practical Improv. w/in Reasonable Time: Good Anticipated D/C Destination: Home with Outpt Therapy Was Preadmission Assessment Accurate?: Yes
[2019-01-06 11:35] LABS: Bedside Glucose 299 mg/dL (70-110)
[2019-01-06] MEDS: Albuterol 2.5 MG/3 ML VIAL.NEB. INHALATION (13:33)
[2019-01-06 16:41] LABS: Bedside Glucose 194 mg/dL (70-110)
[2019-01-06 21:06] LABS: Bedside Glucose 172 mg/dL (70-110)
[2019-01-06] MEDS: Senna/Docusate Sodium 1 Tablet 2 TABLET PO (21:08)
[2019-01-06] MEDS: Atorvastatin Calcium 40 MG Tablet PO (21:08)
[2019-01-06] MEDS: guaiFENesin 10 ML UDC (200MG/10ML) PO (22:01)
[2019-01-07 00:56] VITALS: PULSE 87; O2SAT 95
[2019-01-07 02:31] LABS: Bedside Glucose 131 mg/dL (70-110)
[2019-01-07] MEDS: Gabapentin 300 MG Capsule PO ×3 (06:24→21:45)
[2019-01-07] MEDS: guaiFENesin 10 ML UDC (200MG/10ML) PO ×3 (06:24→16:20)
[2019-01-07 06:41] VITALS: O2SAT 92
[2019-01-07 06:46] LABS: Bedside Glucose 131 mg/dL (70-110)
[2019-01-07 08:00] VITALS: BP 125/79; PULSE 80; RESP 18; TEMP 36.8; O2SAT 95
[2019-01-07] MEDS: levETIRAcetam 500 MG Tablet PO ×2 (08:27→21:45)
[2019-01-07] MEDS: Enoxaparin 40 MG/0.4 ML Syringe SC (08:28)
[2019-01-07 08:29] VITALS: PULSE 78
[2019-01-07] MEDS: Lisinopril 40 MG Tablet PO (08:29)
[2019-01-07] MEDS: Clopidogrel Bisulfate 75 MG Tablet PO (08:29)
[2019-01-07] MEDS: Metoprolol Tartrate 25 MG Tablet PO (08:29)
[2019-01-07] MEDS: Pantoprazole Sodium 40 MG Tablet PO (08:29)
[2019-01-07] MEDS: Glimepiride 4 MG Tablet PO ×2 (08:29→16:19)
[2019-01-07] MEDS: Aspirin 81 MG TAB.CHEW PO (08:31)
[2019-01-07] MEDS: hydroCHLOROthiazide 25 MG Tablet PO (08:31)
[2019-01-07] MEDS: Insulin Lispro 100 UNIT/ML INSULN.PEN SQ ×2 (12:11→17:16)
[2019-01-07 12:21] LABS: Bedside Glucose 268 mg/dL (70-110)
[2019-01-07 12:47] VITALS: BMI 33.7
[2019-01-07 12:51] VITALS: O2SAT 90
[2019-01-07 17:11] LABS: Bedside Glucose 246 mg/dL (70-110)
[2019-01-07 19:38] VITALS: BP 106/50; PULSE 68; RESP 18; TEMP 36.7; O2SAT 97
[2019-01-07 21:16] LABS: Bedside Glucose 211 mg/dL (70-110)
[2019-01-07] MEDS: Atorvastatin Calcium 40 MG Tablet PO (21:45)
[2019-01-08] MEDS: guaiFENesin 10 ML UDC (200MG/10ML) PO ×4 (00:15→17:10)
[2019-01-08] MEDS: Insulin Lispro 100 UNIT/ML INSULN.PEN SQ ×6 (00:18→21:08)
[2019-01-08 00:19] VITALS: BP 106/50; PULSE 68
[2019-01-08] MEDS: Metoprolol Tartrate 25 MG Tablet PO ×3 (00:19→21:08)
[2019-01-08 02:36] LABS: Bedside Glucose 211 mg/dL (70-110)
[2019-01-08] MEDS: Enoxaparin 40 MG/0.4 ML Syringe SC (05:20)
[2019-01-08] MEDS: Gabapentin 300 MG Capsule PO ×3 (05:20→21:08)
[2019-01-08 06:31] LABS: Bedside Glucose 174 mg/dL (70-110)
[2019-01-08 07:27] VITALS: O2SAT 2
[2019-01-08] MEDS: Glimepiride 4 MG Tablet PO ×2 (08:50→17:10)
[2019-01-08 08:51] VITALS: BP 131/70; PULSE 64
[2019-01-08] MEDS: Aspirin 81 MG TAB.CHEW PO (08:51)
[2019-01-08] MEDS: levETIRAcetam 500 MG Tablet PO ×2 (08:51→21:08)
[2019-01-08] MEDS: hydroCHLOROthiazide 25 MG Tablet PO (08:51)
[2019-01-08] MEDS: Pantoprazole Sodium 40 MG Tablet PO (08:51)
[2019-01-08] MEDS: Lisinopril 40 MG Tablet PO (08:51)
[2019-01-08] MEDS: Clopidogrel Bisulfate 75 MG Tablet PO (08:51)
[2019-01-08 09:22] VITALS: BP 131/70; PULSE 64; RESP 18; TEMP 36.6; O2SAT 96
[2019-01-08 11:36] LABS: Bedside Glucose 251 mg/dL (70-110)
[2019-01-08 14:32] VITALS: BMI 33.7
[2019-01-08 16:46] LABS: Bedside Glucose 248 mg/dL (70-110)
[2019-01-08 19:55] VITALS: BP 104/54; PULSE 79; RESP 18; TEMP 36.4; O2SAT 98
[2019-01-08 20:30] LABS: Bedside Glucose 193 mg/dL (70-110)
[2019-01-08 21:08] VITALS: BP 104/54; PULSE 79
[2019-01-08] MEDS: Atorvastatin Calcium 40 MG Tablet PO (21:08)
[2019-01-09] MEDS: guaiFENesin 10 ML UDC (200MG/10ML) PO ×5 (00:26→22:00)
[2019-01-09 02:06] LABS: Bedside Glucose 236 mg/dL (70-110)
[2019-01-09] MEDS: Insulin Lispro 100 UNIT/ML INSULN.PEN SQ ×5 (02:06→21:56)
[2019-01-09 07:00] VITALS: BP 119/72; PULSE 79; RESP 16; TEMP 36.5; O2SAT 83
[2019-01-09] MEDS: Gabapentin 300 MG Capsule PO ×3 (07:11→21:55)
[2019-01-09] MEDS: Enoxaparin 40 MG/0.4 ML Syringe SC (07:11)
[2019-01-09 07:26] LABS: Bedside Glucose 154 mg/dL (70-110)
[2019-01-09 07:38] VITALS: O2SAT 98
[2019-01-09] MEDS: Aspirin 81 MG TAB.CHEW PO (07:52)
[2019-01-09] MEDS: Lisinopril 40 MG Tablet PO (07:52)
[2019-01-09] MEDS: Glimepiride 4 MG Tablet PO ×2 (07:52→16:57)
[2019-01-09 07:53] VITALS: BP 119/72; PULSE 79
[2019-01-09] MEDS: Pantoprazole Sodium 40 MG Tablet PO (07:53)
[2019-01-09] MEDS: levETIRAcetam 500 MG Tablet PO ×2 (07:53→21:56)
[2019-01-09] MEDS: Metoprolol Tartrate 25 MG Tablet PO ×2 (07:53→21:56)
[2019-01-09] MEDS: hydroCHLOROthiazide 25 MG Tablet PO (07:53)
[2019-01-09] MEDS: Clopidogrel Bisulfate 75 MG Tablet PO (07:53)
[2019-01-09 10:50] VITALS: BMI 33.7
[2019-01-09 11:45] LABS: Bedside Glucose 201 mg/dL (70-110)
[2019-01-09 17:11] LABS: Bedside Glucose 187 mg/dL (70-110)
[2019-01-09 21:29] VITALS: BP 140/76; PULSE 77; RESP 16; TEMP 36.5; O2SAT 95
[2019-01-09 21:56] VITALS: BP 140/76; PULSE 77
[2019-01-09] MEDS: Atorvastatin Calcium 40 MG Tablet PO (21:56)
[2019-01-09 22:35] LABS: Bedside Glucose 211 mg/dL (70-110)
[2019-01-10] MEDS: Insulin Lispro 100 UNIT/ML INSULN.PEN SQ ×3 (02:06→21:40)
[2019-01-10 02:11] LABS: Bedside Glucose 158 mg/dL (70-110)
[2019-01-10 05:00] VITALS: BMI 33.7
[2019-01-10] MEDS: guaiFENesin 10 ML UDC (200MG/10ML) PO ×4 (06:33→23:30)
[2019-01-10] MEDS: Gabapentin 300 MG Capsule PO ×3 (06:33→21:42)
[2019-01-10 06:36] LABS: Bedside Glucose 146 mg/dL (70-110)
[2019-01-10 07:52] VITALS: BP 137/69; PULSE 67
[2019-01-10] MEDS: Pantoprazole Sodium 40 MG Tablet PO (07:52)
[2019-01-10] MEDS: Metoprolol Tartrate 25 MG Tablet PO ×2 (07:52→21:41)
[2019-01-10] MEDS: hydroCHLOROthiazide 25 MG Tablet PO (07:52)
[2019-01-10] MEDS: Clopidogrel Bisulfate 75 MG Tablet PO (07:52)
[2019-01-10] MEDS: Aspirin 81 MG TAB.CHEW PO (07:52)
[2019-01-10] MEDS: Glimepiride 4 MG Tablet PO ×3 (07:52→21:41)
[2019-01-10] MEDS: Lisinopril 40 MG Tablet PO (07:52)
[2019-01-10] MEDS: levETIRAcetam 500 MG Tablet PO ×2 (07:52→21:41)
[2019-01-10 08:57] VITALS: BP 137/69; PULSE 67; RESP 16; TEMP 36.4; O2SAT 99
[2019-01-10] MEDS: Enoxaparin 40 MG/0.4 ML Syringe SC (08:57)
--- NOTE | 2019-01-10 09:10 | PCM.PN.NEU ---
Subjective: Per nursing no issues overnight. Team meeting completed today, present. Per PT mod assist with OOB transfers, ambulating about 85 ft with wheeled walker and 3-5 steps light hand touching. Per OT, bathing mod assist and toileting max assist. Per ST, on mechanical soft, nectar thickened liquids with soriano water protocol. Tolerating soriano water. Mild dysarthria and mild word finding issues. Re-team next week, pending insurance updates. - Physical Exam General: Alert, Oriented x3, Cooperative HEENT: Atraumatic, PERRLA Oral: Moist Mucosa Neck: Supple, No JVD Lungs: Clear to auscultation, Normal air movement Cardiovascular: Regular rate, Regular Rhythm Abdomen: Bowel Sounds Present, Soft, Non Tender, Obese Extremities: No clubbing, No cyanosis, No edema Neurological: Cranial nerves II-XII grossly intact, Deep Tendon Reflexes 2+/4 and Symmetrical, - - Motor strength RUE, RLE 4/5 LUE, LLE 5/5. Intact tactile sensation Psych/Mental Status: Normal Affect, Appropriate, Alert and oriented to time, place, person, mood and affect Vital Signs Temp Pulse Resp BP Pulse Ox 97.6 F L 67 16 137/69 H 99 01/10/19 08:57 01/10/19 08:57 01/10/19 08:57 01/10/19 08:57 01/10/19 08:57 Oxygen Flow Rate (L/min) 2 Oxygen Delivery Method Room Air Weight: 106.5 kg Body Mass Index (BMI) 33.7 Finger Stick Blood Glucose 260 Intake and Output for Last 24 Hours 01/08/19 01/09/19 01/10/19 23:59 23:59 23:59 Intake Total 360 / 360 240 / 240 440 / 440 Output Total 800 / 800 Balance 360 / 360 -560 / -560 440 / 440 POC Glucose 01/10/19 01/10/19 01/09/19 06:28 02:05 21:53 POC Glucose 146 H 158 H 211 H 01/09/19 01/09/19 16:58 11:28 POC Glucose 187 H 201 H Medical Necessity - Tobacco Use Smoking Status: Never smoker Tobacco Use: Non-smoker Assessment/Plan All Active Problems TIA (transient ischemic attack) (Acute) Mr. Leon is a 68-year-old right-handed white male who initially underwent a left carotid endarterectomy at [facility] and suffered a left MCA distribution stroke. He then was admitted to rehab but had mental status changes and was transferred back to ultimately he was diagnosed with seizures and was placed on Keppra. He is now doing well, and presents back to the rehab unit again for further rehabilitation in order to improve his functional status of that he can return home. He does have multiple steps to manipulate at home he lives at home with his . Plan PT for mobility OT for ADLs ST for dysphagia, cognition Analagesics as needed Left MCA stroke: Aspirin, Plavix, blood pressure control and statin therapy Seizures on keprra Hypertension on HCTZ and zestril Diabetes mellitus on amaryl and humalog S.C. accuchecks On 12/22/18 HgbA1c 8.8 HLD on lipitor on 12/31/18 LDL 60 GERD on protonix Obesity education on diet, exercise and wt loss GI/DVT prophylaxis on protonix/lovenox and knee high dorothy carrizales Medical management per hospitalist-consult Follow up with PCP and Neurology
--- NOTE | 2019-01-10 11:23 | CASEMGMT ---
Social Work IDT met with pt and spouse for Team meeting. Discussed progress in therapy. Still requiring assistance with all ADLS and varies in amount of assistance. Continues to work with ST for swallowing, speech and cognition. Insurance update due 01/11 and continued stay is not guaranteed, which pt and spouse understand. Will await outcome of update for discharge plans. Will continue to follow. Nikole Fuentes, TEST ENGINE MECHANIC RAIL TECHNICIAN
[2019-01-10 11:45] LABS: Bedside Glucose 228 mg/dL (70-110)
[2019-01-10 14:09] VITALS: BMI 33.7
[2019-01-10 17:05] LABS: Bedside Glucose 139 mg/dL (70-110)
[2019-01-10 19:12] VITALS: BP 97/49; PULSE 79; RESP 16; TEMP 36.8; O2SAT 97
[2019-01-10 19:48] VITALS: BMI 33.7
[2019-01-10 19:49] VITALS: PULSE 79; RESP 17
[2019-01-10 21:10] LABS: Bedside Glucose 173 mg/dL (70-110)
[2019-01-10 21:41] VITALS: PULSE 79
[2019-01-10] MEDS: Atorvastatin Calcium 40 MG Tablet PO (21:41)
[2019-01-11] MEDS: Insulin Lispro 100 UNIT/ML INSULN.PEN SQ ×5 (02:00→21:08)
[2019-01-11 02:11] LABS: Bedside Glucose 168 mg/dL (70-110)
[2019-01-11 06:51] LABS: Bedside Glucose 144 mg/dL (70-110)
[2019-01-11] MEDS: guaiFENesin 10 ML UDC (200MG/10ML) PO ×3 (06:59→17:18)
[2019-01-11] MEDS: Enoxaparin 40 MG/0.4 ML Syringe SC (06:59)
[2019-01-11] MEDS: Gabapentin 300 MG Capsule PO ×3 (06:59→21:08)
[2019-01-11 07:20] VITALS: BP 121/63; PULSE 70; RESP 16; TEMP 36.4; O2SAT 94
[2019-01-11] MEDS: Lisinopril 40 MG Tablet PO (07:41)
[2019-01-11 07:42] VITALS: BP 121/63; PULSE 70
[2019-01-11] MEDS: Aspirin 81 MG TAB.CHEW PO (07:42)
[2019-01-11] MEDS: Metoprolol Tartrate 25 MG Tablet PO ×2 (07:42→21:08)
[2019-01-11] MEDS: hydroCHLOROthiazide 25 MG Tablet PO (07:42)
[2019-01-11] MEDS: Clopidogrel Bisulfate 75 MG Tablet PO (07:42)
[2019-01-11] MEDS: levETIRAcetam 500 MG Tablet PO ×2 (07:42→21:08)
[2019-01-11] MEDS: Pantoprazole Sodium 40 MG Tablet PO (07:42)
--- NOTE | 2019-01-11 09:41 | CASEMGMT ---
Insurance: Continued stay review clinicals faxed to [facility] this day. Auth # [id number]
[2019-01-11 11:56] LABS: Bedside Glucose 177 mg/dL (70-110)
[2019-01-11 12:42] VITALS: BMI 33.7
--- NOTE | 2019-01-11 12:42 | PCM.PN.NEU ---
Subjective: Per nursing no issues overnight. Per patient tolerating therapies well. Denies further questions or concerns. - Physical Exam General: Alert, Oriented x3, Cooperative HEENT: Atraumatic, PERRLA Oral: Moist Mucosa Neck: Supple, No JVD Lungs: Clear to auscultation, Normal air movement Cardiovascular: Regular rate, Regular Rhythm Abdomen: Bowel Sounds Present, Soft, Non Tender, Obese Extremities: No clubbing, No cyanosis, No edema Neurological: Cranial nerves II-XII grossly intact, Deep Tendon Reflexes 2+/4 and Symmetrical, - - Motor strength RUE, RLE 4/5 LUE, LLE 5/5 Psych/Mental Status: Normal Affect, Appropriate, Alert and oriented to time, place, person, mood and affect Vital Signs Temp Pulse Resp BP Pulse Ox 97.6 F L 70 16 121/63 H 94 01/11/19 07:20 01/11/19 07:42 01/11/19 07:20 01/11/19 07:42 01/11/19 07:20 Oxygen Flow Rate (L/min) 2 Oxygen Delivery Method Nasal Cannula Weight: 106.5 kg Body Mass Index (BMI) 33.7 Finger Stick Blood Glucose 260 Intake and Output for Last 24 Hours 01/09/19 01/10/19 01/11/19 23:59 23:59 23:59 Intake Total 240 / 240 680 / 680 Output Total 800 / 800 Balance -560 / -560 680 / 680 POC Glucose 01/11/19 01/11/19 01/11/19 11:48 06:32 01:55 POC Glucose 177 H 144 H 168 H 01/10/19 01/10/19 20:28 16:55 POC Glucose 173 H 139 H Medical Necessity - Tobacco Use Smoking Status: Never smoker Tobacco Use: Non-smoker Assessment/Plan All Active Problems TIA (transient ischemic attack) (Acute) Mr. Leon is a 68-year-old right-handed white male who initially underwent a left carotid endarterectomy at [facility] and suffered a left MCA distribution stroke. He then was admitted to rehab but had mental status changes and was transferred back to ultimately he was diagnosed with seizures and was placed on Keppra. He is now doing well, and presents back to the rehab unit again for further rehabilitation in order to improve his functional status of that he can return home. He does have multiple steps to manipulate at home he lives at home with his . Plan PT for mobility OT for ADLs ST for dysphagia, cognition Analagesics as needed Left MCA stroke: Aspirin, Plavix, blood pressure control and statin therapy Seizures on keprra Hypertension on HCTZ and zestril Diabetes mellitus on amaryl and humalog S.C. accuchecks On 12/22/18 HgbA1c 8.8 HLD on lipitor on 12/31/18 LDL 60 GERD on protonix Obesity education on diet, exercise and wt loss GI/DVT prophylaxis on protonix/lovenox and knee high dorothy hose Medical management per hospitalist-consult Fall precautions Bowel protocol Follow up with PCP and Neurology
[2019-01-11 16:41] LABS: Bedside Glucose 156 mg/dL (70-110)
--- NOTE | 2019-01-11 16:45 | CASEMGMT ---
Insurance: Patient approved 7 additional days. Patient approved through 01/19/16 with and update due 01/18/19. Auth # [id number]
[2019-01-11] MEDS: Glimepiride 4 MG Tablet PO (17:18)
[2019-01-11 19:01] VITALS: BP 131/74; PULSE 74; RESP 18; TEMP 36.6; O2SAT 96
[2019-01-11 19:54] VITALS: PULSE 74; RESP 18
[2019-01-11 20:41] LABS: Bedside Glucose 191 mg/dL (70-110)
[2019-01-11 20:53] VITALS: BMI 33.7
[2019-01-11] MEDS: Atorvastatin Calcium 40 MG Tablet PO (21:07)
[2019-01-11 21:08] VITALS: BP 131/74; PULSE 74
[2019-01-12] VITALS (7 sets, daily range): BP systolic 124–126; BP diastolic 68–77; PULSE 71–76; RESP 16–18; TEMP 36.4–36.5; O2SAT 87–97; BMI 33.7
[2019-01-12] MEDS: guaiFENesin 10 ML UDC (200MG/10ML) PO ×5 (00:03→21:39)
[2019-01-12] MEDS: Insulin Lispro 100 UNIT/ML INSULN.PEN SQ ×3 (02:18→21:40)
[2019-01-12 02:26] LABS: Bedside Glucose 188 mg/dL (70-110)
[2019-01-12] MEDS: Gabapentin 300 MG Capsule PO ×3 (05:07→21:39)
[2019-01-12] MEDS: Enoxaparin 40 MG/0.4 ML Syringe SC (05:07)
[2019-01-12 06:50] LABS: Bedside Glucose 146 mg/dL (70-110)
[2019-01-12] MEDS: Glimepiride 4 MG Tablet PO ×2 (07:43→16:41)
[2019-01-12] MEDS: hydroCHLOROthiazide 25 MG Tablet PO (07:44)
[2019-01-12] MEDS: Aspirin 81 MG TAB.CHEW PO (07:44)
[2019-01-12] MEDS: Lisinopril 40 MG Tablet PO (07:44)
[2019-01-12] MEDS: levETIRAcetam 500 MG Tablet PO ×2 (07:44→21:40)
[2019-01-12] MEDS: Clopidogrel Bisulfate 75 MG Tablet PO (07:44)
[2019-01-12] MEDS: Metoprolol Tartrate 25 MG Tablet PO ×2 (07:44→21:39)
[2019-01-12] MEDS: Pantoprazole Sodium 40 MG Tablet PO (07:44)
--- NOTE | 2019-01-12 09:57 | CASEMGMT ---
Social Work Insurance extended pt - next review date is 01/18. Spoke with patient and left a message of the information. Will reteam on 01/17 to discuss progress to prepare for insurance update. Discharge planning remains going at this time. Nikole Fuentes, LABORER RAGS GR[employer] CREW LINESMAN
[2019-01-12 11:31] LABS: Bedside Glucose 252 mg/dL (70-110)
--- NOTE | 2019-01-12 13:39 | PCM.PN.NEU ---
Subjective: Per nursing no issues overnight. Per patient chronic dry non-productive cough > 1 month is subsiding, none noted this am. Patient denies SOB, wheezing, chest tightness or pain, dizziness or lightheadedness. Patient currently on oxygen @ 2 l/m via n.c d/t spo2 <90% RA when attempted to wean prior., nursing to wean, no prior oxygen use at home. Discussed using I.S. at least 10x/HR. Per patient tolerating therapies well, denies further questions or concerns. - Physical Exam General: Alert, Oriented x3, Cooperative HEENT: Atraumatic, PERRLA Oral: Moist Mucosa Neck: Supple, No JVD Lungs: Clear to auscultation, Normal air movement, No rhonchi, No wheeze, No rales Cardiovascular: Regular rate, Regular Rhythm Abdomen: Bowel Sounds Present, Soft, Non Tender, Obese Extremities: No clubbing, No cyanosis, No edema Neurological: Cranial nerves II-XII grossly intact, - - Motor strength RUE, RLE 4/5 LUE, LLE 5/5 Psych/Mental Status: Normal Affect, Appropriate, Alert and oriented to time, place, person, mood and affect Vital Signs Temp Pulse Resp BP Pulse Ox 97.5 F L 71 16 124/77 H 94 01/12/19 07:13 01/12/19 07:44 01/12/19 07:13 01/12/19 07:13 01/12/19 09:03 Oxygen Flow Rate (L/min) 2 Oxygen Delivery Method Nasal Cannula Weight: 106.5 kg Body Mass Index (BMI) 33.7 Finger Stick Blood Glucose 260 Intake and Output for Last 24 Hours 01/10/19 01/11/19 01/12/19 23:59 23:59 23:59 Intake Total 680 / 680 720 / 720 Balance 680 / 680 720 / 720 POC Glucose 01/12/19 01/12/19 01/12/19 11:20 06:38 02:18 POC Glucose 252 H 146 H 188 H 01/11/19 01/11/19 20:32 16:36 POC Glucose 191 H 156 H Medical Necessity - Tobacco Use Smoking Status: Never smoker Tobacco Use: Non-smoker Assessment/Plan All Active Problems TIA (transient ischemic attack) (Acute) Mr. Leon is a 68-year-old right-handed white male who initially underwent a left carotid endarterectomy at [facility] and suffered a left MCA distribution stroke. He then was admitted to rehab but had mental status changes and was transferred back to ultimately he was diagnosed with seizures and was placed on Keppra. He is now doing well, and presents back to the rehab unit again for further rehabilitation in order to improve his functional status of that he can return home. He does have multiple steps to manipulate at home he lives at home with his . Plan PT for mobility OT for ADLs ST for dysphagia, cognition Analagesics as needed Left MCA stroke: Aspirin, Plavix, blood pressure control and statin therapy Seizures on keprra Hypertension on HCTZ and zestril Diabetes mellitus on amaryl and humalog S.C. accuchecks On 12/22/18 HgbA1c 8.8 HLD on lipitor on 12/31/18 LDL 60 GERD on protonix Obesity education on diet, exercise and wt loss JULIUS on CPAP GI/DVT prophylaxis on protonix/lovenox and knee high dorothy hose Hypoxia currently on oxygen Medical management per hospitalist-consult Fall precautions Bowel protocol Follow up with PCP, Pulmonary and Neurology
--- NOTE | 2019-01-12 13:44 | PCM.PN.NEU ---
Subjective: No new complaints. Tolerating therapies. No GI/ complaints. - Physical Exam General: Alert, Oriented x3, Cooperative, No apparent distress Neurological: Cranial nerves II-XII grossly intact Psych/Mental Status: Normal Affect, Alert and oriented to time, place, person, mood and affect Vital Signs Temp Pulse Resp BP Pulse Ox 36.4 C L 71 16 124/77 H 94 01/12/19 07:13 01/12/19 07:44 01/12/19 07:13 01/12/19 07:13 01/12/19 09:03 Oxygen Flow Rate (L/min) 2 Oxygen Delivery Method Nasal Cannula Weight: 106.5 kg Body Mass Index (BMI) 33.7 Finger Stick Blood Glucose 260 Intake and Output for Last 24 Hours 01/10/19 01/11/19 01/12/19 23:59 23:59 23:59 Intake Total 680 / 680 720 / 720 Balance 680 / 680 720 / 720 POC Glucose 01/12/19 01/12/19 01/12/19 11:20 06:38 02:18 POC Glucose 252 H 146 H 188 H 01/11/19 01/11/19 20:32 16:36 POC Glucose 191 H 156 H Current Medications Generic Name Dose Route Start Last Admin Trade Name Freq PRN Reason Stop Dose Admin Acetaminophen 650 mg 01/05/19 20:57 Tylenol PO Q4H PRN PRN Mild Pain (0-3/10)/Headache Albuterol Sulfate 2.5 mg 01/05/19 21:34 01/06/19 13:33 Ventolin Aerosols INHALATION 2.5 mg Q6H PRN PRN Administration COUGH Aspirin 81 mg 01/06/19 08:00 01/12/19 07:44 Aspirin, Baby PO 81 mg DAILY@0800 GRETEL Administration Atorvastatin Calcium 40 mg 01/05/19 22:00 01/11/19 21:07 Lipitor PO 40 mg QHS GRETEL Administration Bisacodyl 10 mg 01/05/19 20:57 Dulcolax RECTAL .PRN X 1 PRN Constipation Clopidogrel Bisulfate 75 mg 01/06/19 10:00 01/12/19 07:44 Plavix PO 75 mg DAILY GRETEL Administration Dextrose 0 gm 01/05/19 21:30 D50w Syringe IV X1 PRN Hypoglycemia Protocol Enoxaparin Sodium 40 mg 01/08/19 06:00 01/12/19 05:07 Lovenox SC 40 mg DAILY@0600 GRETEL Administration Gabapentin 300 mg 01/05/19 22:00 01/12/19 13:36 Neurontin PO 300 mg TID GRETEL Administration Glimepiride 4 mg 01/06/19 08:00 01/12/19 07:43 Amaryl PO 4 mg BIDCM GRETEL Administration Glucagon 1 mg 01/05/19 21:30 IM .X1 PRN Hypoglycemia Guaifenesin 10 ml 01/07/19 00:00 01/12/19 11:32 Robitussin PO 10 ml Q6 GRETEL Administration Hydrochlorothiazide 25 mg 01/06/19 10:00 01/12/19 07:44 Hctz PO 25 mg DAILY GRETEL Administration Insulin Human Lispro 0 unit 01/05/19 22:00 01/12/19 11:33 Humalog Kwikpen ([facility]) SQ 3 u ACHS & 3AM GRETEL Administration Protocol Levetiracetam 500 mg 01/05/19 22:00 01/12/19 07:44 Keppra Tablet PO 500 mg BID GRETEL Administration Lisinopril 40 mg 01/06/19 10:00 01/12/19 07:44 Zestril PO 40 mg DAILY GRETEL Administration Magnesium Hydroxide 30 ml 01/05/19 20:57 Milk Of Magnesia PO .PRN X 1 PRN Constipation Metoprolol Tartrate 25 mg 01/05/19 22:00 01/12/19 07:44 Lopressor (Beta Janine) PO 25 mg Q12 GRETEL Administration Pantoprazole Sodium 40 mg 01/06/19 10:00 01/12/19 07:44 Protonix PO 40 mg DAILY [facility] Administration Senna/Docusate Sodium 2 tablet 01/05/19 22:00 01/12/19 07:45 Senokot-S, Chelsi-Colace PO Not Given BID [facility] Medical Necessity - Tobacco Use Smoking Status: Never smoker Tobacco Use: Non-smoker Assessment/Plan All Active Problems TIA (transient ischemic attack) (Acute) Debility status post complicated hospitalization including initially left carotid endarterectomy followed by left MCA distribution stroke and complex partial seizures now on Keppra. Stabilized and improved. Now admitted to the rehab unit with a goal of restoring his previous level of functional independence. Plan: Physical therapy for gait and balance Occupational Therapy for ADLs Speech therapy: 01/12: Still mechanical soft but he now has thin liquids. Bowel protocol DVT prophylaxis: Lovenox Stroke prophylaxis: Aspirin, Plavix, blood pressure control and statin therapy Seizures: Controlled on Keppra PRN analgesics Team tomorrow.
--- NOTE | 2019-01-12 14:08 | RAD_ITS ---
STUDY: X-RAY CHEST REASON FOR EXAM: Male, 68 years old. Cough TECHNIQUE: PA and lateral views of the chest. COMPARISON: Prior study of 12/31/2018 FINDINGS: The lungs are clear and expanded. There is no demonstrated pleural abnormality. Normal size heart. Normal mediastinum and elliott. Normal visualized pulmonary arteries. There are calcified plaques of the aortic arch. There is a thoracolumbar scoliosis. Status post total left shoulder replacement changes are noted. There is no demonstrated abnormality of the visualized soft tissue structures of the upper abdomen. RAD/Chest PA and Lateral IMPRESSION: Thoracolumbar scoliosis. Calcified plaques of the aortic arch. Status post total left shoulder replacement changes noted. No acute cardiopulmonary disease process is seen. Chest findings are stable in the interval. Electronically Signed: Jose D Petersen MD at 17:08 EDT , Service support ,
--- NOTE | 2019-01-12 14:23 | NURSING ---
Oxygen weaning showing 92% RA at this time at rest. Yesterday per staff report oxygen weaning was not successful and patient was in the 80's on RA. [employer] Demonstrator aware. New order for CXR and patient made aware.
--- NOTE | 2019-01-12 16:30 | NURSING ---
Spo2 94% RA with exertion.
[2019-01-12 16:45] LABS: Bedside Glucose 149 mg/dL (70-110)
[2019-01-12 20:56] LABS: Bedside Glucose 178 mg/dL (70-110)
[2019-01-12] MEDS: Atorvastatin Calcium 40 MG Tablet PO (21:40)
[2019-01-13] VITALS (7 sets, daily range): BP systolic 105–112; BP diastolic 62–63; PULSE 63–81; RESP 18–20; TEMP 36.4–36.8; O2SAT 90–95; BMI 33.7
[2019-01-13] MEDS: Insulin Lispro 100 UNIT/ML INSULN.PEN SQ ×5 (02:20→19:44)
[2019-01-13 02:31] LABS: Bedside Glucose 153 mg/dL (70-110)
[2019-01-13] MEDS: Gabapentin 300 MG Capsule PO ×3 (05:55→19:43)
[2019-01-13] MEDS: Enoxaparin 40 MG/0.4 ML Syringe SC (05:55)
[2019-01-13] MEDS: guaiFENesin 10 ML UDC (200MG/10ML) PO ×3 (05:55→16:50)
[2019-01-13 06:46] LABS: Bedside Glucose 155 mg/dL (70-110)
[2019-01-13] MEDS: Metoprolol Tartrate 25 MG Tablet PO ×2 (07:44→19:44)
[2019-01-13] MEDS: Clopidogrel Bisulfate 75 MG Tablet PO (07:44)
[2019-01-13] MEDS: Glimepiride 4 MG Tablet PO ×2 (07:44→16:50)
[2019-01-13] MEDS: levETIRAcetam 500 MG Tablet PO ×2 (07:44→19:43)
[2019-01-13] MEDS: Pantoprazole Sodium 40 MG Tablet PO (07:46)
[2019-01-13] MEDS: Aspirin 81 MG TAB.CHEW PO (07:46)
[2019-01-13] MEDS: hydroCHLOROthiazide 25 MG Tablet PO (07:46)
[2019-01-13] MEDS: Lisinopril 40 MG Tablet PO (07:47)
--- NOTE | 2019-01-13 08:55 | CT_ITS ---
STUDY: CT BRAIN WITHOUT CONTRAST REASON FOR EXAM: Male, 68 years old. Visual changes. RADIATION DOSAGE (If Supplied By Facility): CTDIvol = ( 44.99 ) mGy, DLP = ( 846.73 ) mGycm TECHNIQUE: Transaxial CT imaging of the brain was performed without administration of intravenous contrast material. Individualized dose optimization techniques were used for this CT. COMPARISON: Comparison is made with prior study dated December 31, 2018. FINDINGS: There is a 1.1 cm x 1.3 cm soft tissue nodule in the scalp overlying the left temporal parietal bone. This may represent a sebaceous cyst. Clinical correlation is recommended. Normal calvarium. There is mild cerebral atrophy with widening of the extra-axial spaces and ventricular dilatation. Normal white matter tracts of the cerebral hemispheres. Normal basal ganglia and thalami. Normal brainstem. Normal cerebellum. There is no intracranial hemorrhage. There are no findings of an acute ischemic infarction. Atherosclerotic calcification of the vertebral arteries. Opacification of the sphenoid sinus worse on the left side. Mucosal thickening of the ethmoid sinuses. CT/Brain/Head without Contrast IMPRESSION: Chronic involutional changes of the brain. Sinusitis. Electronically Signed: Baudilio Maldonado, at 9:30 EDT , Service support ,
[2019-01-13 10:20] LABS: Anion Gap 3 (5-15); BUN 44 mg/dL (7-18); BUN/Creat Ratio 33.3 RATIO (10-20); Calcium,Total 9.1 mg/dL (8.5-10.1); Chloride 99 mmol/L (98-107); Creatinine, Serum 1.32 mg/dL (0.70-1.30); EST Glomerular Filtration Rate 57 mL/min (>60); Est Glom Filt Rate - Afr Amer 69 mL/min (>60); Glucose 241 mg/dL (74-106); Potassium 4.1 mmol/L (3.5-5.1); Sodium Level 138 mmol/L (136-145)
--- NOTE | 2019-01-13 10:28 | PN.NEURO_ITS ---
Subjective: Per patient he has a light purple color agdaagux in his vision line to left eye. Lasted about 10 minutes. He stated that he had this in his right eye and saw a bracelet form coverer prior to his stroke. Also, stated for years he had black floaters intermittently in his vision with both eyes. Denies headache, blurred or double vision, eye pain, lightheadedness or dizziness. Requesting bracelet form coverer records. CT of brain obtained showed Chronic involutional changes of the brain. Sinusitis. BMP ordered. HCTZ decreased to 12.5 mg d/t blood pressure on lower side. CXR was obtained on 01/12/19 d/t chronic cough > 1 month and hypoxia. CXR results Thoracolumbar scoliosis. Calcified plaques of the aortic arch. No acute cardiopulmonary disease process is seen. Chest findings are stable in the interval. Oxygen continues weaning and verbalized understanding to f/u with Dr. Castro his lead installer, which follows his JULIUS. - Physical Exam General: Alert, Oriented x3, Cooperative HEENT: Atraumatic, PERRLA Oral: Moist Mucosa Neck: Supple, No JVD Lungs: Clear to auscultation, Normal air movement Cardiovascular: Regular rate, Regular Rhythm Abdomen: Bowel Sounds Present, Soft, Non Tender Extremities: No clubbing, No cyanosis, No edema Neurological: Cranial nerves II-XII grossly intact, Deep Tendon Reflexes 2+/4 and Symmetrical, Motor Exam 5/5 strength throughout - Motor strength RUE/RLE 4/5, LUE/LLE 5/5 Psych/Mental Status: Normal Affect, Appropriate, Alert and oriented to time, place, person, mood and affect Vital Signs Temp Pulse Resp BP Pulse Ox 97.6 F L 63 20 H 105/63 90 01/13/19 08:20 01/13/19 08:20 01/13/19 08:20 01/13/19 08:20 01/13/19 08:20 Oxygen Flow Rate (L/min) 2 Oxygen Delivery Method Nasal Cannula Weight: 100.8 kg Body Mass Index (BMI) 33.7 Finger Stick Blood Glucose 260 Intake and Output for Last 24 Hours 01/11/19 01/12/19 01/13/19 23:59 23:59 23:59 Intake Total 960 / 960 360 / 360 Balance 960 / 960 360 / 360 Laboratory Tests Past 24 Hrs 01/13/19 09:32 Sodium 138 Potassium 4.1 Chloride 99 Carbon Dioxide 36.0 H Anion Gap 3 L BUN 44 H Creatinine 1.32 H Estim Creat Clear Calc 55.30 Est GFR (MDRD) Af Amer 69 Est GFR (MDRD) Non-Af 57 L BUN/Creatinine Ratio 33.3 H Glucose 241 H Calcium 9.1 POC Glucose 01/13/19 01/13/19 01/12/19 06:39 02:19 20:52 POC Glucose 155 H 153 H 178 H 01/12/19 01/12/19 16:41 11:20 POC Glucose 149 H 252 H Medical Necessity - Tobacco Use Smoking Status: Never smoker Tobacco Use: Non-smoker Assessment/Plan All Active Problems TIA (transient ischemic attack) (Acute) Mr. Leon is a 68-year-old right-handed white male who initially underwent a left carotid endarterectomy at [facility] and suffered a left MCA distribution stroke. He then was admitted to rehab but had mental status changes and was transferred back to ultimately he was diagnosed with seizures and was placed on Keppra. He is now doing well, and presents back to the rehab unit again for further rehabilitation in order to improve his functional status of that he can return home. He does have multiple steps to manipulate at home h e lives at home with his . Plan PT for mobility OT for ADLs ST for dysphagia, cognition Analagesics as needed Left MCA stroke: Aspirin, Plavix, blood pressure control and statin therapy 01/13/19 CT Chronic involutional changes of the brain. Sinusitis Seizures on keprra Hypertension on HCTZ and zestril Diabetes mellitus on amaryl and humalog S.C. accuchecks On 12/22/18 HgbA1c 8.8 HLD on lipitor on 12/31/18 LDL 60 GERD on protonix Obesity education on diet, exercise and wt loss JULIUS on CPAP GI/DVT prophylaxis on protonix/lovenox and knee high dorothy hose Hypoxia currently on oxygen weaning Medical management per hospitalist-consult Fall precautions Bowel protocol Follow up with PCP, Pulmonary and Neurology
[2019-01-13 11:45] LABS: Bedside Glucose 206 mg/dL (70-110)
[2019-01-13 16:40] LABS: Bedside Glucose 211 mg/dL (70-110)
[2019-01-13] MEDS: Atorvastatin Calcium 40 MG Tablet PO (19:44)
[2019-01-13 21:40] LABS: Bedside Glucose 173 mg/dL (70-110)
[2019-01-14 00:16] VITALS: BMI 33.7
[2019-01-14] MEDS: guaiFENesin 10 ML UDC (200MG/10ML) PO ×4 (01:01→17:12)
[2019-01-14 02:55] LABS: Bedside Glucose 169 mg/dL (70-110)
[2019-01-14] MEDS: Insulin Lispro 100 UNIT/ML INSULN.PEN SQ ×4 (03:48→16:56)
[2019-01-14] MEDS: Gabapentin 300 MG Capsule PO ×3 (06:08→19:54)
[2019-01-14] MEDS: Enoxaparin 40 MG/0.4 ML Syringe SC (06:08)
[2019-01-14 06:29] VITALS: O2SAT 88
[2019-01-14 07:21] LABS: Bedside Glucose 167 mg/dL (70-110)
[2019-01-14 07:52] VITALS: PULSE 73
[2019-01-14] MEDS: levETIRAcetam 500 MG Tablet PO ×2 (07:52→19:54)
[2019-01-14] MEDS: Aspirin 81 MG TAB.CHEW PO (07:52)
[2019-01-14] MEDS: Pantoprazole Sodium 40 MG Tablet PO (07:52)
[2019-01-14] MEDS: hydroCHLOROthiazide 12.5mg 12.5 MG PO (07:52)
[2019-01-14] MEDS: Metoprolol Tartrate 25 MG Tablet PO ×2 (07:52→19:54)
[2019-01-14] MEDS: Glimepiride 4 MG Tablet PO ×2 (07:52→16:56)
[2019-01-14] MEDS: Lisinopril 40 MG Tablet PO (07:52)
[2019-01-14] MEDS: Clopidogrel Bisulfate 75 MG Tablet PO (07:52)
[2019-01-14 08:04] VITALS: BP 110/59; PULSE 73; RESP 18; TEMP 36.6; O2SAT 97
[2019-01-14 11:35] LABS: Bedside Glucose 186 mg/dL (70-110)
--- NOTE | 2019-01-14 12:41 | PN.NEURO_ITS ---
Subjective: Per nursing no issues overnight. Received Dr. Varma note from [facility] per the note patient was dx with TIA d/t vision loss with no lasting defects in either eye and temporary loss of function of right arm on 12/21/18. Patient continues to deny further vision changes from yesterday. Patient has been off oxygen today with toleration. SPO2 97% RA. Denies SOB or none noted. Patient is tolerating therapy well. Denies further questions or concerns. - Physical Exam General: Alert, Oriented x3, Cooperative HEENT: Atraumatic, PERRLA Oral: Moist Mucosa Neck: Supple, No JVD Cardiovascular: Regular rate, Regular Rhythm Abdomen: Bowel Sounds Present, Soft, Non Tender Extremities: No clubbing, No cyanosis, No edema Musculoskeletal: No Tenderness to Palpation of Joints or Extremities Neurological: Cranial nerves II-XII grossly intact, Deep Tendon Reflexes 2+/4 and Symmetrical, - - motor strength RUE/RLE 4/5 Psych/Mental Status: Normal Affect, Appropriate, Alert and oriented to time, place, person, mood and affect Vital Signs Temp Pulse Resp BP Pulse Ox 97.9 F 73 18 110/59 L 97 01/14/19 08:04 01/14/19 08:04 01/14/19 08:04 01/14/19 08:04 01/14/19 08:04 Oxygen Flow Rate (L/min) 2 Oxygen Delivery Method Room Air Weight: 100.8 kg Body Mass Index (BMI) 33.7 Finger Stick Blood Glucose 260 Intake and Output for Last 24 Hours 01/12/19 01/13/19 01/14/19 23:59 23:59 23:59 Intake Total 960 / 960 1020 / 1020 240 / 240 Balance 960 / 960 1020 / 1020 240 / 240 POC Glucose 01/14/19 01/14/19 01/14/19 11:28 07:15 02:47 POC Glucose 186 H 167 H 169 H 01/13/19 01/13/19 19:42 16:34 POC Glucose 173 H 211 H Medical Necessity - Tobacco Use Smoking Status: Never smoker Tobacco Use: Non-smoker Assessment/Plan All Active Problems TIA (transient ischemic attack) (Acute) Mr. Leon is a 68-year-old right-handed white male who initially underwent a left carotid endarterectomy at [facility] and suffered a left MCA distribution stroke. He then was admitted to rehab but had mental status changes and was transferred back to ultimately he was diagnosed with seizures and was placed on Keppra. He is now doing well, and presents back to the rehab unit again for further rehabilitation in order to improve his functional status of that he can return home. He does have multiple steps to manipulate at home he lives at home with his . Plan PT for mobility OT for ADLs ST for dysphagia, cognition Analagesics as needed Left MCA stroke: Aspirin, Plavix, blood pressure control and statin therapy 01/13/19 CT Chronic involutional changes of the brain. Sinusitis Seizures on keprra Hypertension on HCTZ and zestril Diabetes mellitus on amaryl and humalog S.C. accuchecks On 12/22/18 HgbA1c 8.8 HLD on lipitor on 12/31/18 LDL 60 GERD on protonix Obesity education on diet, exercise and wt loss JULIUS on CPAP GI/DVT prophylaxis on protonix/lovenox and knee high dorothy hose Hypoxia currently on oxygen weaning Medical management per hospitalist-consult Fall precautions Bowel protocol Follow up with PCP, Pulmonary and Neurology
[2019-01-14 14:36] VITALS: BMI 33.7
--- NOTE | 2019-01-14 15:00 | NURSING ---
Dr. Villanueva reviewed blood sugar readings and NNO's.
[2019-01-14 17:01] LABS: Bedside Glucose 201 mg/dL (70-110)
[2019-01-14 19:48] VITALS: BP 138/80; PULSE 81; RESP 16; TEMP 36.6; O2SAT 97
[2019-01-14 19:54] VITALS: PULSE 81
[2019-01-14] MEDS: Atorvastatin Calcium 40 MG Tablet PO (19:54)
[2019-01-14] MEDS: Acetaminophen 325 MG Tablet 650 MG PO (19:58)
[2019-01-14 23:55] VITALS: BMI 33.7
[2019-01-15] VITALS (7 sets, daily range): BP systolic 96–129; BP diastolic 52–79; PULSE 68–90; RESP 16–18; TEMP 36.4–36.8; O2SAT 93–99; BMI 33.7
[2019-01-15 00:16] LABS: Bedside Glucose 148 mg/dL (70-110)
[2019-01-15] MEDS: guaiFENesin 10 ML UDC (200MG/10ML) PO ×4 (00:25→18:19)
[2019-01-15] MEDS: Acetaminophen 325 MG Tablet 650 MG PO (00:28)
[2019-01-15 02:50] LABS: Bedside Glucose 168 mg/dL (70-110)
[2019-01-15] MEDS: Insulin Lispro 100 UNIT/ML INSULN.PEN SQ ×5 (03:00→21:55)
[2019-01-15] MEDS: Gabapentin 300 MG Capsule PO ×3 (06:11→19:52)
[2019-01-15] MEDS: Enoxaparin 40 MG/0.4 ML Syringe SC (06:11)
[2019-01-15 06:55] LABS: Bedside Glucose 171 mg/dL (70-110)
[2019-01-15] MEDS: Aspirin 81 MG TAB.CHEW PO (08:40)
[2019-01-15] MEDS: Glimepiride 4 MG Tablet PO ×2 (08:40→17:19)
[2019-01-15] MEDS: Pantoprazole Sodium 40 MG Tablet PO (08:40)
[2019-01-15] MEDS: levETIRAcetam 500 MG Tablet PO ×2 (08:40→19:50)
[2019-01-15] MEDS: Clopidogrel Bisulfate 75 MG Tablet PO (08:40)
[2019-01-15 12:15] LABS: Bedside Glucose 173 mg/dL (70-110)
[2019-01-15 17:20] LABS: Bedside Glucose 197 mg/dL (70-110)
[2019-01-15] MEDS: Metoprolol Tartrate 25 MG Tablet PO (19:51)
[2019-01-15] MEDS: Atorvastatin Calcium 40 MG Tablet PO (19:51)
[2019-01-15 21:31] LABS: Bedside Glucose 158 mg/dL (70-110)
[2019-01-16] MEDS: guaiFENesin 10 ML UDC (200MG/10ML) PO ×4 (01:18→17:48)
[2019-01-16 02:50] LABS: Bedside Glucose 124 mg/dL (70-110)
[2019-01-16 06:31] VITALS: O2SAT 95
[2019-01-16] MEDS: Enoxaparin 40 MG/0.4 ML Syringe SC (06:45)
[2019-01-16] MEDS: Gabapentin 300 MG Capsule PO ×3 (06:45→20:53)
[2019-01-16 06:55] LABS: Bedside Glucose 151 mg/dL (70-110)
[2019-01-16] MEDS: Insulin Lispro 100 UNIT/ML INSULN.PEN SQ ×3 (08:33→21:11)
[2019-01-16] MEDS: Glimepiride 4 MG Tablet PO ×2 (08:34→17:46)
[2019-01-16] MEDS: Aspirin 81 MG TAB.CHEW PO (08:34)
[2019-01-16 08:35] VITALS: BP 137/70; PULSE 73
[2019-01-16] MEDS: hydroCHLOROthiazide 12.5mg 12.5 MG PO (08:35)
[2019-01-16] MEDS: Pantoprazole Sodium 40 MG Tablet PO (08:35)
[2019-01-16] MEDS: Lisinopril 40 MG Tablet PO (08:35)
[2019-01-16] MEDS: levETIRAcetam 500 MG Tablet PO ×2 (08:35→20:52)
[2019-01-16] MEDS: Clopidogrel Bisulfate 75 MG Tablet PO (08:35)
[2019-01-16] MEDS: Metoprolol Tartrate 25 MG Tablet PO ×2 (08:35→20:52)
[2019-01-16 08:42] VITALS: BP 137/70; PULSE 73; RESP 18; TEMP 36.6; O2SAT 93
[2019-01-16 12:01] LABS: Bedside Glucose 208 mg/dL (70-110)
[2019-01-16 13:42] VITALS: BMI 33.7
[2019-01-16 16:36] LABS: Bedside Glucose 148 mg/dL (70-110)
[2019-01-16 19:27] VITALS: BP 112/57; PULSE 83; RESP 19; TEMP 36.7; O2SAT 93
[2019-01-16 20:51] VITALS: BMI 33.7
[2019-01-16 20:52] VITALS: PULSE 83
[2019-01-16] MEDS: Atorvastatin Calcium 40 MG Tablet PO (20:52)
[2019-01-16 21:00] LABS: Bedside Glucose 193 mg/dL (70-110)
[2019-01-16 22:00] VITALS: PULSE 83; RESP 18
[2019-01-17] MEDS: guaiFENesin 10 ML UDC (200MG/10ML) PO ×5 (00:01→23:33)
[2019-01-17] MEDS: Insulin Lispro 100 UNIT/ML INSULN.PEN SQ ×3 (02:51→21:43)
[2019-01-17 03:01] LABS: Bedside Glucose 155 mg/dL (70-110)
[2019-01-17] MEDS: Enoxaparin 40 MG/0.4 ML Syringe SC (04:54)
[2019-01-17] MEDS: Gabapentin 300 MG Capsule PO ×3 (04:55→21:44)
[2019-01-17 07:06] LABS: Bedside Glucose 149 mg/dL (70-110)
[2019-01-17 07:43] VITALS: BP 119/69; PULSE 66
[2019-01-17] MEDS: Metoprolol Tartrate 25 MG Tablet PO ×2 (07:43→21:44)
[2019-01-17] MEDS: Aspirin 81 MG TAB.CHEW PO (07:43)
[2019-01-17] MEDS: levETIRAcetam 500 MG Tablet PO ×2 (07:43→21:44)
[2019-01-17] MEDS: Glimepiride 4 MG Tablet PO ×2 (07:43→17:40)
[2019-01-17] MEDS: Pantoprazole Sodium 40 MG Tablet PO (07:43)
[2019-01-17] MEDS: Clopidogrel Bisulfate 75 MG Tablet PO (07:43)
[2019-01-17] MEDS: hydroCHLOROthiazide 12.5mg 12.5 MG PO (07:43)
[2019-01-17] MEDS: Lisinopril 40 MG Tablet PO (07:44)
[2019-01-17 08:06] VITALS: BP 119/69; PULSE 60; RESP 18; TEMP 36.4; O2SAT 98
--- NOTE | 2019-01-17 09:25 | PCM.PN.NEU ---
Subjective: Team meeting held today. Per PT, SBA with walker and transfers. Per OT, CGA with ADLs, min assist with lower body drsg. Per ST, attention is the main cognitive disorder with mild memory deficit, reassessment today with cognitive deficit. Diet advanced to mechanical soft diet, tolerating well. Per nursing, discussed monitoring glucose levels at home and diabetic education will need to be completed. Per SW, d/c 01/22/19 with outpatient PT and ST. - Physical Exam General: Alert, Oriented x3, Cooperative HEENT: Atraumatic, PERRLA Oral: Moist Mucosa Neck: Supple, No JVD Lungs: Clear to auscultation, Normal air movement Cardiovascular: Regular rate, Regular Rhythm Abdomen: Bowel Sounds Present, Soft, Non Tender, Obese Extremities: No clubbing, No cyanosis, No edema Neurological: Cranial nerves II-XII grossly intact, Deep Tendon Reflexes 2+/4 and Symmetrical, - - Motor strength LUE/LLe 5/5. RUE/RLE 4/5 Psych/Mental Status: Normal Affect, Appropriate, Alert and oriented to time, place, person, mood and affect Vital Signs Temp Pulse Resp BP Pulse Ox 97.6 F L 60 18 119/69 98 01/17/19 08:06 01/17/19 08:06 01/17/19 08:06 01/17/19 08:06 01/17/19 08:06 Oxygen Flow Rate (L/min) 5 Oxygen Delivery Method Nasal Cannula Weight: 100.8 kg Body Mass Index (BMI) 33.7 Finger Stick Blood Glucose 260 Intake and Output for Last 24 Hours 01/15/19 01/16/19 01/17/19 23:59 23:59 23:59 Intake Total 220 / 220 440 / 440 Balance 220 / 220 440 / 440 POC Glucose 01/17/19 01/17/19 01/16/19 06:47 02:52 20:54 POC Glucose 149 H 155 H 193 H 01/16/19 01/16/19 16:12 11:45 POC Glucose 148 H 208 H Medical Necessity - Tobacco Use Smoking Status: Never smoker Tobacco Use: Non-smoker Assessment/Plan All Active Problems TIA (transient ischemic attack) (Acute) Mr. Leon is a 68-year-old right-handed white male who initially underwent a left carotid endarterectomy at [facility] and suffered a left MCA distribution stroke. He then was admitted to rehab but had mental status changes and was transferred back to ultimately he was diagnosed with seizures and was placed on Keppra. He is now doing well, and presents back to the rehab unit again for further rehabilitation in order to improve his functional status of that he can return home. He does have multiple steps to manipulate at home he lives at home with his . Plan PT for mobility OT for ADLs ST for dysphagia, cognition Analagesics as needed Left MCA stroke: Aspirin, Plavix, blood pressure control and statin therapy 01/13/19 CT Chronic involutional changes of the brain. Sinusitis Seizures on keprra Hypertension on HCTZ and zestril Diabetes mellitus on amaryl and humalog S.C. accuchecks On 12/22/18 HgbA1c 8.8 HLD on lipitor on 12/31/18 LDL 60 GERD on protonix Obesity education on diet, exercise and wt loss JULIUS on CPAP GI/DVT prophylaxis on protonix/lovenox and knee high dorothy hose Hypoxia currently on oxygen weaning Medical management per hospitalist-consult Fall precautions Bowel protocol Follow up with PCP, Pulmonary and Neurology d/c 01/22/19 with outpatient PT/ST.
[2019-01-17 10:16] VITALS: BMI 33.7
--- NOTE | 2019-01-17 11:52 | CASEMGMT ---
Social Work IDT met with patient and spouse for Team meeting. Patient progressing well, but still working on some attention issues and supervision while eating with upgraded diet. Spouse retires at the end of this week, and pt requesting to DC home 01/22. Next insurance update is 01/18 and continued stay is not guaranteed, which pt and spouse understand. Will need a tub bench and continued therapy at home. Will continue to follow for DC planning. Nikole Fuentes, BUDGET DIRECTOR BRICK MOLDER HAND
[2019-01-17 12:01] LABS: Bedside Glucose 239 mg/dL (70-110)
[2019-01-17 17:05] LABS: Bedside Glucose 142 mg/dL (70-110)
[2019-01-17 18:07] VITALS: BP 146/76; PULSE 80; RESP 16; TEMP 36.6; O2SAT 93
[2019-01-17 21:21] VITALS: BMI 33.7
[2019-01-17 21:44] VITALS: PULSE 80
[2019-01-17] MEDS: Atorvastatin Calcium 40 MG Tablet PO (21:44)
[2019-01-17 22:46] LABS: Bedside Glucose 150 mg/dL (70-110)
[2019-01-18 02:31] LABS: Bedside Glucose 103 mg/dL (70-110)
[2019-01-18] MEDS: guaiFENesin 10 ML UDC (200MG/10ML) PO ×2 (05:51)
[2019-01-18] MEDS: Gabapentin 300 MG Capsule PO ×3 (05:51→21:51)
[2019-01-18] MEDS: Enoxaparin 40 MG/0.4 ML Syringe SC (05:52)
[2019-01-18 07:10] LABS: Bedside Glucose 149 mg/dL (70-110)
[2019-01-18 07:32] VITALS: BP 143/87; PULSE 66; RESP 17; TEMP 36.7; O2SAT 93
[2019-01-18] MEDS: Aspirin 81 MG TAB.CHEW PO (07:35)
[2019-01-18] MEDS: hydroCHLOROthiazide 12.5mg 12.5 MG PO (07:35)
[2019-01-18] MEDS: Glimepiride 4 MG Tablet PO ×2 (07:35→16:55)
[2019-01-18 07:36] VITALS: PULSE 77
[2019-01-18] MEDS: levETIRAcetam 500 MG Tablet PO ×2 (07:36→21:51)
[2019-01-18] MEDS: Metoprolol Tartrate 25 MG Tablet PO ×2 (07:36→21:51)
[2019-01-18] MEDS: Lisinopril 40 MG Tablet PO (07:36)
[2019-01-18] MEDS: Clopidogrel Bisulfate 75 MG Tablet PO (07:36)
[2019-01-18] MEDS: Pantoprazole Sodium 40 MG Tablet PO (07:36)
--- NOTE | 2019-01-18 09:52 | CASEMGMT ---
Insurance: Clinical continued stay review faxed to [facility] this day. Auth # [id number]
[2019-01-18 11:25] LABS: Bedside Glucose 249 mg/dL (70-110)
[2019-01-18] MEDS: Insulin Lispro 100 UNIT/ML INSULN.PEN SC ×2 (11:58→21:51)
--- NOTE | 2019-01-18 12:54 | CASEMGMT ---
Insurance: Continued stay approved for additional days. LCD 01/21 with anticipated discharge on 01/22. Auth # [id number]
--- NOTE | 2019-01-18 13:54 | CASEMGMT ---
Social Work Insurance issued LCD 01/21 DC 01/22 per pt and spouse request. Therapy recommending a transfer tub bench and outpatient PT/ST. Nursing providing pt and spouse diabetic training. Spoke with pt and spouse on above information - both agreeable. Referred to [facility] for DME. Tub bench will be delivered to pts home through [employer] the day of pt discharge. SAMARIA DonahueW
--- NOTE | 2019-01-18 14:05 | PN.NEURO_ITS ---
Subjective: Per nursing no issues overnight. per patient continues to tolerate therapies well. SPO2 ranging between 93-98% RA. Denies SOB at rest or with exertion. Nursing continues to provide education about insulin injections and monitoring glucose levels. Patient denies further questions or concerns. - Physical Exam General: Alert, Oriented x3, Cooperative HEENT: Atraumatic, PERRLA Oral: Moist Mucosa Lungs: Clear to auscultation, Normal air movement Cardiovascular: Regular rate, Regular Rhythm Abdomen: Bowel Sounds Present, Soft, Obese Neurological: Cranial nerves II-XII grossly intact, Deep Tendon Reflexes 2+/4 and Symmetrical, - - motor strenght RUE/RLE 4/5, LUE/LLE 5/5 Psych/Mental Status: Normal Affect, Appropriate, Alert and oriented to time, place, person, mood and affect Vital Signs Temp Pulse Resp BP Pulse Ox 98.0 F 77 17 143/87 H 93 01/18/19 07:32 01/18/19 07:36 01/18/19 07:32 01/18/19 07:32 01/18/19 07:32 Oxygen Flow Rate (L/min) 5 Oxygen Delivery Method Room Air Weight: 100.8 kg Body Mass Index (BMI) 33.7 Finger Stick Blood Glucose 260 Intake and Output for Last 24 Hours 01/16/19 01/17/19 01/18/19 23:59 23:59 23:59 Intake Total 220 / 220 880 / 880 360 / 360 Balance 220 / 220 880 / 880 360 / 360 POC Glucose 01/18/19 01/18/19 01/18/19 11:22 06:59 02:11 POC Glucose 249 H 149 H 103 01/17/19 01/17/19 21:42 16:38 POC Glucose 150 H 142 H Medical Necessity - Tobacco Use Smoking Status: Never smoker Tobacco Use: Non-smoker Assessment/Plan All Active Problems TIA (transient ischemic attack) (Acute) Mr. Leon is a 68-year-old right-handed white male who initially underwent a left carotid endarterectomy at [facility] and suffered a left MCA distribution stroke. He then was admitted to rehab but had mental status changes and was transferred back to ultimately he was diagnosed with seizures and was placed on Keppra. He is now doing well, and presents back to the rehab unit again for further rehabilitation in order to improve his functional status of that he can return home. He does have multiple steps to manipulate at home he lives at home with his . Plan PT for mobility OT for ADLs ST for dysphagia, cognition Analgesics as needed Left MCA stroke: Aspirin, Plavix, blood pressure control and statin therapy 01/13/19 CT Chronic involutional changes of the brain. Sinusitis Seizures on keprra Hypertension on HCTZ and zestril Diabetes mellitus on amaryl and humalog S.C. accuchecks On 12/22/18 HgbA1c 8.8 HLD on lipitor on 12/31/18 LDL 60 GERD on protonix Obesity education on diet, exercise and wt loss JULIUS on CPAP GI/DVT prophylaxis on protonix/lovenox and knee high dorothy hose Hypoxia resolved, SPO2 93-98% RA Medical management per hospitalist-consult Fall precautions Bowel protocol Follow up with PCP, Pulmonary and Neurology d/c 01/22/19 with outpatient PT/ST.
[2019-01-18 14:48] VITALS: BMI 33.7
--- NOTE | 2019-01-18 15:39 | CASEMGMT ---
Social Work PHQ-9 completed. Resources offered - patient declined. Nikole Fuentes, AUTO GLASS TECHNICIAN PRINTING TABLE WORKER
[2019-01-18 16:25] LABS: Bedside Glucose 123 mg/dL (70-110)
[2019-01-18 19:43] VITALS: BP 108/56; PULSE 81; RESP 17; TEMP 36.6; O2SAT 95
[2019-01-18 21:25] LABS: Bedside Glucose 163 mg/dL (70-110)
[2019-01-18 21:39] VITALS: BMI 33.7
[2019-01-18 21:51] VITALS: PULSE 81
[2019-01-18] MEDS: Atorvastatin Calcium 40 MG Tablet PO (21:51)
[2019-01-19] MEDS: Enoxaparin 40 MG/0.4 ML Syringe SC (06:07)
[2019-01-19] MEDS: Gabapentin 300 MG Capsule PO ×3 (06:07→22:05)
[2019-01-19 07:06] LABS: Bedside Glucose 196 mg/dL (70-110)
[2019-01-19 07:33] VITALS: BP 120/67; PULSE 73; RESP 18; TEMP 36.6; O2SAT 92
[2019-01-19] MEDS: Glimepiride 4 MG Tablet PO ×2 (07:43→17:12)
[2019-01-19] MEDS: Lisinopril 40 MG Tablet PO (07:44)
[2019-01-19] MEDS: Pantoprazole Sodium 40 MG Tablet PO (07:44)
[2019-01-19] MEDS: levETIRAcetam 500 MG Tablet PO ×2 (07:44→22:05)
[2019-01-19] MEDS: hydroCHLOROthiazide 12.5mg 12.5 MG PO (07:44)
[2019-01-19] MEDS: Clopidogrel Bisulfate 75 MG Tablet PO (07:44)
[2019-01-19] MEDS: Aspirin 81 MG TAB.CHEW PO (07:44)
[2019-01-19 07:45] VITALS: PULSE 77
[2019-01-19] MEDS: Metoprolol Tartrate 25 MG Tablet PO ×2 (07:45→22:05)
[2019-01-19] MEDS: Insulin Lispro 100 UNIT/ML INSULN.PEN SC ×3 (07:46→22:06)
--- NOTE | 2019-01-19 09:37 | PN.NEURO_ITS ---
Subjective: Per nursing no issues overnight. Patient voiced that his home medication omeprazole is effective in treating his GERD, therapeutic interchange of Pr otonix is not effective and is having symptoms of difficulty swallowing foods d/t acid per patient. Per patient this the same symptom why his GI put him on omeprazole. Nursing calling to ask to bring in omeprazole to be scheduled instead of Protonix. Nursing is also reporting increase belching. Discussed PRN Tums or Gas-X, patient denied. Patient denies headache, blurred or double vision, dizziness or lightheadedness or new onset of weakness. - Physical Exam General: Alert, Oriented x3, Cooperative HEENT: Atraumatic, PERRLA Oral: Moist Mucosa Neck: Supple, No JVD Lungs: Clear to auscultation, Normal air movement Cardiovascular: Regular rate, Regular Rhythm Abdomen: Bowel Sounds Present, Soft, Non Tender, Obese Neurological: Cranial nerves II-XII grossly intact, Deep Tendon Reflexes 2+/4 and Symmetrical, Motor Exam 5/5 strength throughout - except RLE 4/5, chronic per patient d/t surgery of slipped epiphysis when younger, - Psych/Mental Status: Normal Affect, Appropriate, Alert and oriented to time, place, person, mood and affect Vital Signs Temp Pulse Resp BP Pulse Ox 97.8 F 77 18 120/67 92 01/19/19 07:33 01/19/19 07:45 01/19/19 07:33 01/19/19 07:33 01/19/19 07:33 Oxygen Flow Rate (L/min) 5 Oxygen Delivery Method Room Air Weight: 100.788 kg Body Mass Index (BMI) 33.7 Finger Stick Blood Glucose 260 Intake and Output for Last 24 Hours 01/17/19 01/18/19 01/19/19 23:59 23:59 23:59 Intake Total 880 / 880 360 / 360 Balance 880 / 880 360 / 360 POC Glucose 01/19/19 01/18/19 01/18/19 06:56 20:34 16:18 POC Glucose 196 H 163 H 123 H 01/18/19 11:22 POC Glucose 249 H Medical Necessity - Tobacco Use Smoking Status: Never smoker Tobacco Use: Non-smoker Assessment/Plan All Active Problems TIA (transient ischemic attack) (Acute) Mr. Leon is a 68-year-old right-handed white male who initially underwent a left carotid endarterectomy at [facility] and suffered a left MCA distribution stroke. He then was admitted to rehab but had mental status changes and was transferred back to ultimately he was diagnosed with seizures and was placed on Keppra. He is now doing well, and presents back to the rehab unit again for further rehabilitation in order to improve his functional status of that he can return home. He does have multiple steps to manipulate at home he lives at home with his . Plan PT for mobility OT for ADLs ST for dysphagia, cognition Analgesics as needed Left MCA stroke: Aspirin, Plavix, blood pressure control and statin therapy 01/13/19 CT Chronic involutional changes of the brain. Sinusitis Seizures on keprra Hypertension on HCTZ and zestril Diabetes mellitus on amaryl and humalog S.C. accuchecks On 12/22/18 HgbA1c 8.8 HLD on lipitor on 12/31/18 LDL 60 GERD on protonix Obesity education on diet, exercise and wt loss JULIUS on CPAP GI/DVT prophylaxis on protonix/lovenox and knee high dorothy hose Hypoxia resolved, SPO2 93-98% RA Medical management per hospitalist-consult Fall precautions Bowel protocol Follow up with PCP, Pulmonary and Neurology d/c 01/22/19 with outpatient PT/ST.
[2019-01-19 12:21] LABS: Bedside Glucose 215 mg/dL (70-110)
[2019-01-19 13:31] VITALS: BMI 33.7
[2019-01-19 16:50] LABS: Bedside Glucose 110 mg/dL (70-110)
[2019-01-19 19:02] VITALS: BP 122/69; PULSE 82; RESP 18; TEMP 36.8; O2SAT 93
[2019-01-19 22:05] VITALS: BP 122/69; PULSE 82
[2019-01-19] MEDS: Atorvastatin Calcium 40 MG Tablet PO (22:05)
[2019-01-19 22:30] LABS: Bedside Glucose 194 mg/dL (70-110)
[2019-01-20 03:42] LABS: Bedside Glucose 161 mg/dL (70-110)
[2019-01-20 05:00] VITALS: BMI 33.7
[2019-01-20] MEDS: Enoxaparin 40 MG/0.4 ML Syringe SC (05:45)
[2019-01-20 06:45] LABS: Bedside Glucose 149 mg/dL (70-110)
[2019-01-20 07:40] VITALS: BP 132/69; PULSE 70; RESP 20; TEMP 36.7; O2SAT 95
[2019-01-20] MEDS: Clopidogrel Bisulfate 75 MG Tablet PO (08:01)
[2019-01-20] MEDS: hydroCHLOROthiazide 12.5mg 12.5 MG PO (08:01)
[2019-01-20] MEDS: Aspirin 81 MG TAB.CHEW PO (08:01)
[2019-01-20] MEDS: Gabapentin 300 MG Capsule PO ×3 (08:01→21:33)
[2019-01-20] MEDS: levETIRAcetam 500 MG Tablet PO ×2 (08:01→21:33)
[2019-01-20] MEDS: Glimepiride 4 MG Tablet PO ×2 (08:01→17:32)
[2019-01-20 08:02] VITALS: BP 132/69; PULSE 70
[2019-01-20] MEDS: OMEPRAZOLE 40 MG CAPSULE.DR PO (08:02)
[2019-01-20] MEDS: Lisinopril 40 MG Tablet PO (08:02)
[2019-01-20] MEDS: Metoprolol Tartrate 25 MG Tablet PO ×2 (08:02→21:33)
--- NOTE | 2019-01-20 08:51 | PN.NEURO_ITS ---
Subjective: Per nursing no issues. Spouse brought in omeprazole, dose given this am. Tolerating therapies well, denies further questions or concerns. - Physical Exam General: Alert, Oriented x3, Cooperative HEENT: Atraumatic, PERRLA Oral: Moist Mucosa Neck: Supple, No JVD Lungs: Clear to auscultation, Normal air movement Cardiovascular: Regular rate, Regular Rhythm Abdomen: Bowel Sounds Present, Soft, Non Tender Extremities: No clubbing, No cyanosis, No edema Neurological: Cranial nerves II-XII grossly intact, Deep Tendon Reflexes 2+/4 and Symmetrical, Motor Exam 5/5 strength throughout - except RLE 4/5, chronic per patient d/t surgery of slipped epiphysis when younger Psych/Mental Status: Normal Affect, Appropriate, Alert and oriented to time, place, person, mood and affect Vital Signs Temp Pulse Resp BP Pulse Ox 98.1 F 70 20 H 132/69 H 95 01/20/19 07:40 01/20/19 08:02 01/20/19 07:40 01/20/19 08:02 01/20/19 07:40 Oxygen Flow Rate (L/min) 5 Oxygen Delivery Method Room Air Weight: 100.7 kg Body Mass Index (BMI) 33.7 Finger Stick Blood Glucose 260 Intake and Output for Last 24 Hours 01/18/19 01/19/19 01/20/19 23:59 23:59 23:59 Intake Total 360 / 360 Balance 360 / 360 POC Glucose 01/20/19 01/20/19 01/19/19 06:28 03:30 22:04 POC Glucose 149 H 161 H 194 H 01/19/19 01/19/19 16:39 12:16 POC Glucose 110 215 H Medical Necessity - Tobacco Use Smoking Status: Never smoker Tobacco Use: Non-smoker Assessment/Plan All Active Problems TIA (transient ischemic attack) (Acute) Mr. Leon is a 68-year-old right-handed white male who initially underwent a left carotid endarterectomy at [facility] and suffered a left MCA distribution stroke. He then was admitted to rehab but had mental status changes and was transferred back to ultimately he was diagnosed with seizures and was placed on Keppra. He is now doing well, and presents back to the rehab unit again for further rehabilitation in order to improve his functional status of that he can return home. He does have multiple steps to manipulate at home he lives at home with his . Plan PT for mobility OT for ADLs ST for dysphagia, cognition Analgesics as needed Left MCA stroke: Aspirin, Plavix, blood pressure control and statin therapy 01/13/19 CT Chronic involutional changes of the brain. Sinusitis Seizures on keprra Hypertension on HCTZ and zestril Diabetes mellitus on amaryl and humalog S.C. accuchecks On 12/22/18 HgbA1c 8.8 RX provided for glucometer, lancets, strips, and novofine needles for insulin. HLD on lipitor on 12/31/18 LDL 60 GERD on protonix Obesity education on diet, exercise and wt loss JULIUS on CPAP GI/DVT prophylaxis on protonix/lovenox and knee high dorothy hose Hypoxia resolved, SPO2 93-98% RA Medical management per hospitalist-consult Fall precautions Bowel protocol Follow up with PCP, Pulmonary and Neurology d/c 01/22/19 with outpatient PT/ST.
[2019-01-20] MEDS: Insulin Lispro 100 UNIT/ML INSULN.PEN SC ×2 (12:00→21:33)
[2019-01-20 12:01] LABS: Bedside Glucose 255 mg/dL (70-110)
--- NOTE | 2019-01-20 14:19 | PCM.PN.HOSP ---
Subjective: Feels good. States he is no longer using a walker and uses a cane only when he is negotiating stairs. Otherwise feels well. Plan is for the patient be discharged on . Vitals/I&O's: Vital Signs Temp Pulse Resp BP Pulse Ox 36.7 C 70 20 H 132/69 H 95 01/20/19 07:40 01/20/19 08:02 01/20/19 07:40 01/20/19 08:02 01/20/19 07:40 Oxygen Flow Rate (L/min) 5 Oxygen Delivery Method Room Air Weight: 100.7 kg Body Mass Index (BMI) 33.7 Finger Stick Blood Glucose 260 Intake and Output for Last 24 Hours 01/18/19 01/19/19 01/20/19 23:59 23:59 23:59 Intake Total 360 / 360 480 / 480 Balance 360 / 360 480 / 480 General: Alert, No apparent distress HEENT: Atraumatic, Normocephalic Oral: Moist Mucosa, No Gingival or Mucosal Lesions/ Ulcerations Neck: No Nodes, Thyroid Normal Size and Texture Lungs: Clear to auscultation, Normal air movement, No rhonchi, No wheeze Cardiovascular: Regular rate, Regular Rhythm, Normal S1, Normal S2, No murmurs Abdomen: Bowel Sounds Present, Soft, Non Tender, Non-Distended, No Hepato-splenomegaly Extremities: No edema, No Calf Tenderness Skin: No rashes, No breakdown Musculoskeletal: No Tenderness to Palpation of Joints or Extremities, No Muscle Wasting Psych/Mental Status: Normal Affect, Appropriate Laboratory Results 01/19/19 16:39: POC Glucose 110 01/19/19 22:04: POC Glucose 194 H 01/20/19 03:30: POC Glucose 161 H 01/20/19 06:28: POC Glucose 149 H 01/20/19 11:52: POC Glucose 255 H Current Medications Acetaminophen (Tylenol) 650 mg PO Q4H PRN PRN PRN Reason: Mild Pain (0-3/10)/Headache Last Admin: 01/15/19 00:28 Dose: 650 mg Documented by: Albuterol Sulfate (Ventolin Aerosols) 2.5 mg INHALATION Q6H PRN PRN PRN Reason: COUGH Last Admin: 01/06/19 13:33 Dose: 2.5 mg Documented by: Aspirin (Aspirin, Baby) 81 mg PO DAILY@0800 [facility] Last Admin: 01/20/19 08:01 Dose: 81 mg Documented by: Atorvastatin Calcium (Lipitor) 40 mg PO QHS [facility] Last Admin: 01/19/19 22:05 Dose: 40 mg Documented by: Bisacodyl (Dulcolax) 10 mg RECTAL .PRN X 1 PRN PRN Reason: Constipation Clopidogrel Bisulfate (Plavix) 75 mg PO DAILY [facility] Last Admin: 01/20/19 08:01 Dose: 75 mg Documented by: Dextrose (D50w Syringe) 0 gm IV X1 PRN; Protocol PRN Reason: Hypoglycemia Enoxaparin Sodium (Lovenox) 40 mg SC DAILY@0600 [facility] Last Admin: 01/20/19 05:45 Dose: 40 mg Documented by: Gabapentin (Neurontin) 300 mg PO TID [facility] Last Admin: 01/20/19 08:01 Dose: 300 mg Documented by: [facility]l) [facility] Last Admin: 01/20/19 08:01 Dose: 4 mg Documented by: Glucagon () 1 mg IM .X1 PRN PRN Reason: Hypoglycemia Hydrochlorothiazide () 12.5 mg PO DAILY [facility] Last Admin: 01/20/19 08:01 Dose: 12.5 mg Documented by: Insulin Human Lispro (Humalog Kwikpen (Bkc)) 0 unit SC [facility]; Protocol Last Admin: 01/20/19 12:00 Dose: 3 u Documented by: Levetiracetam (Keppra Tablet) 500 mg PO BID [facility] Last Admin: 01/20/19 08:01 Dose: 500 mg Documented by: Lisinopril (Zestril) 40 mg PO DAILY [facility] Last Admin: 01/20/19 08:02 Dose: 40 mg Documented by: Magnesium Hydroxide (Milk Of Magnesia) 30 ml PO .PRN X 1 PRN PRN Reason: Constipation Metoprolol Tartrate (Lopressor (Beta Janine)) 25 mg PO Q12 [facility] Last Admin: 01/20/19 08:02 Dose: 25 mg Documented by: Omeprazole (Omeprazole) 40 mg PO DAILY@0700 [facility] Last Admin: 01/20/19 08:02 Dose: 40 mg Documented by: Senna/Docusate Sodium (Senokot-S, Chelsi-Colace) 2 tablet PO BID [facility] Last Admin: 01/20/19 08:02 Dose: Not Given Documented by: Medical Necessity - Tobacco Use Smoking Status: Never smoker Tobacco Use: Non-smoker Assessment/Plan All Active Problems TIA (transient ischemic attack) (Acute) 1. CVA Continue with aspirin and JAMIL Giselle L, continue with atorvastatin. Follow-up with neurology as outpatient 2. Hypertension Stable Continue HCTZ, lisinopril and metoprolol 3. Seizure disorder Stable Continue Keppra 4. VTE prophylaxis: Not indicated as patient is amatory and low risk at this time. Discontinue Lovenox 5. Disposition: Plan is for the patient be discharged on the . No active medical issues need further be addressed at this time. Will sign off. Please do not hesitate to contact us if new needs arise. Code Visit Inpatient E&M: 98154 Subs Hosp L2
[2019-01-20 14:31] VITALS: BMI 33.7
[2019-01-20 17:16] LABS: Bedside Glucose 94 mg/dL (70-110)
--- NOTE | 2019-01-20 18:59 | NURSING ---
Reviewed and agree with JEWELRY DEPARTMENT SUPERVISOR's FIMS and charting
[2019-01-20 19:38] VITALS: BP 155/76; PULSE 84; RESP 20; TEMP 36.4; O2SAT 97
[2019-01-20 21:33] VITALS: BP 155/76; PULSE 84
[2019-01-20] MEDS: Atorvastatin Calcium 40 MG Tablet PO (21:33)
[2019-01-20 22:51] LABS: Bedside Glucose 166 mg/dL (70-110)
[2019-01-21 02:11] LABS: Bedside Glucose 144 mg/dL (70-110)
[2019-01-21 05:00] VITALS: BMI 33.7
[2019-01-21] MEDS: Enoxaparin 40 MG/0.4 ML Syringe SC (05:00)
[2019-01-21] MEDS: OMEPRAZOLE 40 MG CAPSULE.DR PO (05:00)
[2019-01-21] MEDS: Gabapentin 300 MG Capsule PO ×3 (05:00→20:26)
[2019-01-21 07:05] LABS: Bedside Glucose 155 mg/dL (70-110)
[2019-01-21 07:47] VITALS: BP 138/66; PULSE 70; RESP 18; TEMP 36.6; O2SAT 93
[2019-01-21] MEDS: Glimepiride 4 MG Tablet PO ×2 (07:49→17:45)
[2019-01-21] MEDS: levETIRAcetam 500 MG Tablet PO ×2 (07:49→20:26)
[2019-01-21] MEDS: Clopidogrel Bisulfate 75 MG Tablet PO (07:49)
[2019-01-21] MEDS: Lisinopril 40 MG Tablet PO (07:49)
[2019-01-21] MEDS: hydroCHLOROthiazide 12.5mg 12.5 MG PO (07:49)
[2019-01-21 07:50] VITALS: BP 138/66; PULSE 70
[2019-01-21] MEDS: Aspirin 81 MG TAB.CHEW PO (07:50)
[2019-01-21] MEDS: Metoprolol Tartrate 25 MG Tablet PO ×2 (07:50→20:26)
[2019-01-21] MEDS: Insulin Lispro 100 UNIT/ML INSULN.PEN SC ×3 (07:50→22:26)
[2019-01-21 11:16] LABS: Bedside Glucose 271 mg/dL (70-110)
--- NOTE | 2019-01-21 13:00 | DCINST_ITS ---
- Discharge Diagnoses Reason(s) for Visit for Discharge Instructions: Debility secondary to Left MCA stroke You will use the following diet at home:: Calorie/Carbohydrate Controlled (specify 1200, 1400, etc) - 1800 Your food should be the consistency of: Regular Your liquids should be the consistency of: Regular/Thin Discharge Activity: Return to Normal Activity, May Not Drive, May Shower, Use Walker Weight Bearing Status: Weight bearing as tolerated Additional Instructions: Only take plavix for 90 days and follow up with surgon for futher direction. Prescription for glucometer, strips, lancets, and insulin needles was provided Allergies/Adverse Reactions: Allergies codeine Allergy (Verified 12/22/18 10:55) Hives morphine Allergy (Verified 12/22/18 10:55) Hives Medications to take at Discharge Acetaminophen [Tylenol Tablet] 650 mg PO Q4H PRN PRN tab 01/21/19 Aspirin [Aspirin, Baby] 81 mg PO DAILY@0800 tab.chew 01/21/19 Atorvastatin Calcium [Lipitor] 40 mg PO QHS #30 tab 01/21/19 Clopidogrel Bisulfate [Plavix] 75 mg PO DAILY #30 tab 01/21/19 Gabapentin [Neurontin] 300 mg PO TID cap 01/21/19 Glimepiride [Amaryl] 4 mg PO BIDCM #60 tab 01/21/19 Insulin Lispro [Humalog KwikPen] See Protocol SUBCUT ACHS #1 insuln.pen 01/21/19 Lisinopril [Zestril] 40 mg PO DAILY tab 01/21/19 Omeprazole 40 mg PO DAILY@0700 capsule. 01/21/19 hydroCHLOROthiazide [Hydrochlorothiazide] 12.5 mg PO DAILY #30 cap 01/21/19 levETIRAcetam tablet [Keppra tablet] 500 mg PO BID tab 01/21/19 The following prescriptions were given: Glimepiride [Amaryl] 4 mg PO BIDCM #60 tab Transmission Status: Received by [facility] Insulin Lispro [Humalog KwikPen] See Protocol SUBCUT ACHS #1 insuln.pen Transmission Status: Received by [facility] hydroCHLOROthiazide [Hydrochlorothiazide] 12.5 mg PO DAILY #30 cap Transmission Status: Received by [facility] Atorvastatin Calcium [Lipitor] 40 mg PO QHS #30 tab Transmission Status: Received by [facility] Clopidogrel Bisulfate [Plavix] 75 mg PO DAILY #30 tab Transmission Status: Received by [employer] Primary Care Physician: Devin Thompson MD [Primary Care Provider] - Test Results: Test results from this visit will be discussed in further detail at your follow- up appointment, if applicable. Please Follow Up With: Dr. Devin Thompson Please Follow Up With: [facility] PT/ST When: Office will call to schedule appt Please Follow Up With: Timber Spotter Please Follow Up With: Lakeisha Garnica NP Please Follow Up With: [facility] Please Follow Up With: surgeon for carotid artery
--- NOTE | 2019-01-21 13:31 | PCM.RU.DC ---
Rehab Discharge Summary DATE OF ADMISSION: 01/05/19 DATE OF DISCHARGE: 01/22/19 - Rehab Diagnosis Debility secondary to Left MCA stroke Subjective: Per patient tolerated therapies well and is ready to be discharged home with spouse on 01/22/19. Patient denies JACOME, blurred or double vision, dizziness or lightheadedness. - Physical Exam General: Alert, Oriented x3, Cooperative HEENT: Atraumatic, PERRLA Oral: Moist Mucosa Neck: Supple, No JVD Lungs: Clear to auscultation, Normal air movement Cardiovascular: Regular rate, Regular Rhythm Abdomen: Bowel Sounds Present, Soft, Obese Extremities: No clubbing, No cyanosis, No edema Neurological: Cranial nerves II-XII grossly intact, Deep Tendon Reflexes 2+/4 and Symmetrical, Motor Exam 5/5 strength throughout - except RLE 4/5, chronic per patient d/t surgery of slipped epiphysis when younger Psych/Mental Status: Normal Affect, Appropriate, Alert and oriented to time, place, person, mood and affect Vital Signs Temp Pulse Resp BP Pulse Ox 97.9 F 70 18 138/66 H 93 01/21/19 07:47 01/21/19 07:50 01/21/19 07:47 01/21/19 07:50 01/21/19 07:47 Oxygen Flow Rate (L/min) 5 Oxygen Delivery Method Room Air Weight: 100.7 kg Body Mass Index (BMI) 33.7 Finger Stick Blood Glucose 260 Intake and Output for Last 24 Hours 01/19/19 01/20/19 01/21/19 23:59 23:59 23:59 Intake Total 720 / 720 480 / 480 Balance 720 / 720 480 / 480 POC Glucose 01/21/19 01/21/19 01/21/19 11:07 06:31 02:05 POC Glucose 271 H 155 H 144 H 01/20/19 01/20/19 21:31 17:13 POC Glucose 166 H 94 Discharge Diet: 1800 Calorie Control Diet Discharge Activity: Return to Normal Activity, May Not Drive, May Shower, Use Walker Weight Bearing Status: Weight bearing as tolerated Home Medications: Medications to take at Discharge Acetaminophen [Tylenol Tablet] 650 mg PO Q4H PRN PRN tab 01/21/19 Aspirin [Aspirin, Baby] 81 mg PO DAILY@0800 tab.chew 01/21/19 Atorvastatin Calcium [Lipitor] 40 mg PO QHS #30 tab 01/21/19 Clopidogrel Bisulfate [Plavix] 75 mg PO DAILY #30 tab 01/21/19 Gabapentin [Neurontin] 300 mg PO TID cap 01/21/19 Glimepiride [Amaryl] 4 mg PO BIDCM #60 tab 01/21/19 Insulin Lispro [Humalog KwikPen] See Protocol SUBCUT ACHS #1 insuln.pen 01/21/19 Levetiracetam [Keppra] 500 mg PO BID #60 tab 01/21/19 Lisinopril [Zestril] 40 mg PO DAILY tab 01/21/19 Omeprazole 40 mg PO DAILY@0700 capsule. 01/21/19 hydroCHLOROthiazide [Hydrochlorothiazide] 12.5 mg PO DAILY #30 cap 01/21/19 Following Prescrptions Were Given to Patient: Glimepiride [Amaryl] 4 mg PO BIDCM #60 tab Transmission Status: Received by [facility] Insulin Lispro [Humalog KwikPen] See Protocol SUBCUT ACHS #1 insuln.pen Transmission Status: Received by [facility] hydroCHLOROthiazide [Hydrochlorothiazide] 12.5 mg PO DAILY #30 cap Transmission Status: Received by [facility] Levetiracetam [Keppra] 500 mg PO BID #60 tab Transmission Status: Pending to [facility] Atorvastatin Calcium [Lipitor] 40 mg PO QHS #30 tab Transmission Status: Received by [facility] Clopidogrel Bisulfate [Plavix] 75 mg PO DAILY #30 tab Transmission Status: Received by [facility] Primary Care Physician: Devin Thompson MD [Primary Care Provider] - Please Follow Up With: Dr. Devin Thompson Please Follow Up With: [facility] When: Office will call to schedule appt Please Follow Up With: [facility] When: to schedule Please Follow Up With: Lakeisha Garnica NP Please Follow Up With: [facility] When: Office will call to schedule appt Please Follow Up With: surgeon for carotid artery When: will schedule Additional Instructions: Only take Plavix for 90 days total and follow up with surgeon for further directions Disposition: Home Patient Condition:: Stable Rehab Course Mr. Leon is a 68-year-old right-handed white male who initially underwent a left carotid endarterectomy at [facility] and suffered a left MCA distribution stroke. He then was admitted to rehab but had mental status changes and was transferred back to ultimately he was diagnosed with seizures and was placed on Keppra. He is now doing well, and presents back to the rehab unit again for further rehabilitation in order to improve his functional status of that he can return home. He does have multiple steps to manipulate at home he lives at home with his . During rehab course on CXR was obtained on 01/12/19 d/t chronic cough > 1 month and hypoxia. CXR results Thoracolumbar scoliosis. Calcified plaques of the aortic arch. No acute cardiopulmonary disease process is seen. Chest findings are stable in the interval. Oxygen was weaned and now on room air. Wears CPAP for JULIUS. On 01/13/19, patient c/o of light purple color jackson in his vision line to left eye. Lasted about 10 minutes. He stated that he had this in his right eye and saw a pig machine operator helper prior to his stroke. Also, stated for years he had black floaters intermittently in his vision with both eyes. Denies headache, blurred or double vision, eye pain, lightheadedness or dizziness. Requesting pig machine operator helper records. CT of brain obtained showed Chronic involutional changes of the brain. Sinusitis. Also, HCTZ was decreased to 12.5 mg d/t blood pressure on lower side. [place]. Varma [place] [facility] per the note patient was dx with TIA d/t vision loss with no lasting defects in either eye and temporary loss of function of right arm on 12/21/18. On 12/22/18 HgbA1c 8.8, medications adjusted and diabetes education, teaching and insulin administration was completed. Patient has increased strength and mobility and will be discharged home with spouse with outpatient PT/ST on 01/22/19. Patient will be discharged home on 01/22/19 with outpatient PT/ST. Patient will be discharged home on keppra and on plavix x 90 days and will need to f/u with surgeon for left carotid endarterectomy. Also to f/u with PCP, Pulmonary, and Neurology. Meaningful Use Info Meaningful Use Diagnoses (Choose all that apply): Ischemic CVA - AMI Aspirin given w/in 24hrs of arrival?: Yes Statins at discharge?: Yes Suleiman/ARB at discharge?: Yes Beta Janine at discharge?: Yes - CVA Therapy Assessed for PT,OT and/or ST?: Yes - Ischemic Stroke Antithrombotic order at d/c?: Yes Dx of Atrial fib/flutter?: No Statins at discharge?: Yes Primary Dx Acute Ischemic CVA?: Yes IV tPA ordered during stay?: No Reason IV t-PA not ordered: Treatment not Indicated
[2019-01-21 14:43] VITALS: BMI 33.7
[2019-01-21 17:21] LABS: Bedside Glucose 145 mg/dL (70-110)
[2019-01-21 20:01] VITALS: BP 110/69; PULSE 79; RESP 18; TEMP 36.6
[2019-01-21 20:26] VITALS: BP 110/69; PULSE 79
[2019-01-21] MEDS: Atorvastatin Calcium 40 MG Tablet PO (20:26)
[2019-01-21 22:01] LABS: Bedside Glucose 190 mg/dL (70-110)
[2019-01-22 06:49] VITALS: BP 137/74; PULSE 78; RESP 15; TEMP 36.4; O2SAT 92
[2019-01-22] MEDS: Gabapentin 300 MG Capsule PO (06:53)
[2019-01-22] MEDS: OMEPRAZOLE 40 MG CAPSULE.DR PO (06:53)
[2019-01-22] MEDS: Enoxaparin 40 MG/0.4 ML Syringe SC (06:53)
[2019-01-22 06:56] LABS: Bedside Glucose 161 mg/dL (70-110)
[2019-01-22] MEDS: Insulin Lispro 100 UNIT/ML INSULN.PEN SC (07:53)
[2019-01-22 07:54] VITALS: PULSE 78
[2019-01-22] MEDS: levETIRAcetam 500 MG Tablet PO (07:54)
[2019-01-22] MEDS: hydroCHLOROthiazide 12.5mg 12.5 MG PO (07:54)
[2019-01-22] MEDS: Glimepiride 4 MG Tablet PO (07:54)
[2019-01-22] MEDS: Metoprolol Tartrate 25 MG Tablet PO (07:54)
[2019-01-22] MEDS: Aspirin 81 MG TAB.CHEW PO (07:54)
[2019-01-22] MEDS: Clopidogrel Bisulfate 75 MG Tablet PO (07:54)
[2019-01-22] MEDS: Lisinopril 40 MG Tablet PO (07:54)
[2019-01-22 11:05] VITALS: BP 137/74; PULSE 78; RESP 16; TEMP 36.4; O2SAT 96
--- NOTE | 2019-01-22 11:05 | NURSING ---
discharged home with . Discharged instructions, medication and insulin administration reviewed with pt and . Denies questions or concerns.
--- NOTE | 2019-01-22 11:12 | PCM.PN.NEU ---
Subjective: No issues overnight. Care discussed with the nursing staff. Plan is to discharge patient home today 01/22/2019 - Physical Exam General: Alert HEENT: Normocephalic Neck: Supple Lungs: Normal air movement Cardiovascular: Normal S1, Normal S2 Abdomen: Bowel Sounds Present Extremities: No cyanosis Neurological: - - Conscious alert, CN II through XII grossly intact, power 5 x 5 right upper extremities and left upper and lower extremities, right lower extremities +4 x 5, no sensory loss no cerebellar signs, gait deferred. Psych/Mental Status: Normal Affect Vital Signs Temp Pulse Resp BP Pulse Ox 97.5 F L 78 15 137/74 H 92 01/22/19 06:49 01/22/19 07:54 01/22/19 06:49 01/22/19 06:49 01/22/19 06:49 Oxygen Flow Rate (L/min) 93 Oxygen Delivery Method Bi-pap Weight: 100.7 kg Body Mass Index (BMI) 33.7 Finger Stick Blood Glucose 260 Intake and Output for Last 24 Hours 01/20/19 01/21/19 01/22/19 23:59 23:59 23:59 Intake Total 720 / 720 720 / 720 300 / 300 Balance 720 / 720 720 / 720 300 / 300 POC Glucose 01/22/19 01/21/19 01/21/19 06:51 21:44 16:59 POC Glucose 161 H 190 H 145 H 01/21/19 11:07 POC Glucose 271 H Medical Necessity - Tobacco Use Smoking Status: Never smoker Tobacco Use: Non-smoker Assessment/Plan All Active Problems TIA (transient ischemic attack) (Acute) 68-year-old right-handed white male who initially underwent a left carotid endarterectomy at [facility] and suffered a left MCA distribution stroke. He then was admitted to rehab but had mental status changes and was transferred back to ultimately he was diagnosed with seizures and was placed on Keppra. He is now doing well, and presents back to the rehab unit again for further rehabilitation in order to improve his functional status of that he can return home. He does have multiple steps to manipulate at home he lives at home with his . Plan PT for mobility OT for ADLs ST for dysphagia, cognition Analgesics as needed Left MCA stroke: Aspirin, Plavix, blood pressure control and statin therapy 01/13/19 CT Chronic involutional changes of the brain. Sinusitis Seizures on keprra Hypertension on HCTZ and zestril Diabetes mellitus on amaryl and humalog S.C. accuchecks On 12/22/18 HgbA1c 8.8 RX provided for glucometer, lancets, strips, and novofine needles for insulin. HLD on lipitor on 12/31/18 LDL 60 GERD on protonix Obesity education on diet, exercise and wt loss JULIUS on CPAP GI/DVT prophylaxis on protonix/lovenox and knee high dorothy hose Hypoxia resolved, SPO2 93-98% RA Medical management per hospitalist-consult Fall precautions Bowel protocol Follow up with PCP, Pulmonary, vascular surgery and Neurology d/c 01/22/19 with outpatient PT/ST.
[2019-01-22 11:19] VITALS: BMI 33.7
--- NOTE | 2019-01-24 10:07 | CASEMGMT ---
Insurance left with insurance that pt d/c on 01/22/[address]/PT. Auth # [id number] TREVON Ricci
== END 2019-01-22 11:05 | disposition home or self-care (01) | DRG 57 ==
PROVIDERS: Hospitalist; Nurse Practitioner Family; Admitting Provider Psychiatry & Neurology Neurology; Referring Provider Psychiatry & Neurology Neurology; Visit Provider Internal Medicine
DX: I69.351 Hemiplegia and hemiparesis following cerebral infarction affecting right dominant side (principal); G40.89 Other seizures; E11.9 Type 2 diabetes mellitus without complications; I10 Essential (primary) hypertension; E78.5 Hyperlipidemia, unspecified; G47.33 Obstructive sleep apnea (adult) (pediatric); K21.9 Gastro-esophageal reflux disease without esophagitis; E66.9 Obesity, unspecified; Z71.3 Dietary counseling and surveillance; G62.9 Polyneuropathy, unspecified; Z68.33 Body mass index [BMI] 33.0-33.9, adult; M41.85 Other forms of scoliosis, thoracolumbar region
CPT/HCPCS: 36415; 70450; 71046; 80048; 82962; 85027; 92507; 92523; 92526; 92610; 94640; 94667; 97110; 97112; 97116; 97162; 97166; 97530; 97535; 97802

== ENCOUNTER → 2019-02-24 07:08 | Outpatient (CLI) | payer OTHER, SELFPAY ==
[2019-01-26 10:36] VITALS: BMI 31.7
[2019-02-24 08:26] LABS: Allen Test POS; Base Excess 4 mmol/L (-2 to +2); Bicarbonate 28.6 mmol/L (22-26); Blood Gas Specimen Type ART; O2 Delivery Device Room Air; PO2 63 mmHG (75-100); SITE R Radial; SO2 91 % (95-99); Time Given 821; Total Carbon Dioxide 30 mmol/L; pCO2 48.4 mmHg (35-45); pH 7.38 (7.35-7.45)
--- NOTE | 2019-02-24 08:27 | CDU_ITS ---
Reason For Study: carotid stenosis with cerebral infarction Rt. Velocities/BP Lt. Velocities/BP Prox CCA 55.2/10.8 cm/sec. Prox CCA 74.0/14.6 cm/sec. Mid CCA 56.5/12.1 cm/sec. Mid CCA 68.4/15.7 cm/sec. Dist CCA 52.6/13.4 cm/sec. Dist CCA 66.2/19.0. cm/sec. Prox ICA 61.7/23.9 cm/sec. Prox ICA 44.6/13.9 cm/sec. Mid ICA 65.6/23.9 cm/sec. Mid ICA 67.9/22.5 cm/sec. Dist ICA 103.4/31.7 cm/sec. Dist ICA 75.3/26.2 cm/sec. Rt. ICA/CCA = 1.8. Lt. ICA/CCA = 1.1. Prox ECA 79.9/6.9 cm/sec. Prox ECA 113.4/7.7 cm/sec. Rt. Vert. 37.1/8.8 cm/sec. Lt. Vert. 48.3/16.3 cm/sec. Right Extracranial There is homogeneous, smooth atherosclerotic plaque noted in the right common carotid artery. There is heterogeneous, irregular atherosclerotic plaque noted in the right internal carotid artery. There is intimal thickening but no significant atherosclerotic plaque noted in the right external carotid artery. Antegrade flow is noted in the right vertebral artery. Left Extracranial There is homogeneous, smooth atherosclerotic plaque noted in the left common carotid artery. There is intimal thickening but no significant atherosclerotic plaque noted in the left internal carotid artery. There is homogeneous, smooth atherosclerotic plaque noted in the left external carotid artery. Antegrade flow is noted in the left vertebral artery. Procedure Carotid Duplex [id number]. The exam was diagnostic. Exam performed in department. 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
--- NOTE | 2019-02-25 08:54 | PFT ---
INTRODUCTION: The patient is a 68-year-old male that presents for pulmonary function studies secondary to a diagnosis of COPD. Respiratory therapy reports good patient effort. Bronchodilators were used during testing. INTERPRETATION: Forced expiration spirometry demonstrates no evidence of a large airways obstructive ventilatory defect. There was no significant response to aerosolized bronchodilators, based upon strict ATS criteria. Spirograms are of good quality and plateau normally. Body plethysmography was performed and reveals a decrease TLC to 3.85 L, 59% of predicted, indicative of a severe restrictive ventilatory impairment. The remainder of the lung volumes are symmetrically reduced. Diffusing capacity by single breath CO is still within normal limits at 84% of predicted. IMPRESSION: Severe restrictive ventilatory impairment with preserved diffusing capacity.
== END ==
PROVIDERS: Referring Provider Internal Medicine Critical Care Medicine; Visit Provider Internal Medicine Critical Care Medicine
DX: J44.9 Chronic obstructive pulmonary disease, unspecified (principal); I63.239 Cerebral infarction due to unspecified occlusion or stenosis of unspecified carotid artery
CPT/HCPCS: 36600; 82803; 93880; 94060; 94726; 94729

== ENCOUNTER → 2019-03-18 19:50 | Outpatient (CLI) | payer OTHER, SELFPAY ==
[2019-01-26 10:36] VITALS: BMI 31.7
== END ==
PROVIDERS: Referring Provider Nurse Practitioner Acute Care; Visit Provider Nurse Practitioner Acute Care
DX: G47.33 Obstructive sleep apnea (adult) (pediatric) (principal)
CPT/HCPCS: 95811

== ENCOUNTER → 2019-03-31 12:26 | Outpatient (CLI) | payer OTHER, SELFPAY ==
[2019-01-26 10:36] VITALS: BMI 31.7
== END ==
PROVIDERS: Referring Provider Nurse Practitioner Acute Care; Visit Provider Nurse Practitioner Acute Care
DX: Z46.89 Encounter for fitting and adjustment of other specified devices (principal)

== ENCOUNTER → 2020-01-06 09:24 | Outpatient (CLI) | payer OTHER, SELFPAY ==
[2019-12-06 07:22] VITALS: BMI 31.7
== END ==
PROVIDERS: Referring Provider Nurse Practitioner Family; Visit Provider Nurse Practitioner Family
DX: R55 Syncope and collapse (principal)
CPT/HCPCS: 95819